=== PATIENT | male | born 1935 | race Caucasian/White ===

== ENCOUNTER 2016-12-01 08:30 | Day surgery (SDC) | payer MEDICARE, OTHER ==
[2016-12-01] VITALS (7 sets, daily range): BP systolic 105–173; BP diastolic 49–76; PULSE 69–72; RESP 15–20; Ht 177.8 cm; Wt 95.0 kg
[~2016-12-01] VITALS: Ht 177.8 cm; Wt 95.0 kg
[~2016-12-01 08:30] MED LIST: ACET325T33 PO; APIX2.5T PO; ATOR40TA68 PO; BACTDS PO; BUME2TAB PO; CEPH-443 PO; HYDR-762 PO; HYDR-906 PO; LOSA50TA6 PO; METO50TA16 PO
[2016-12-01] MEDS ORDERED: ASPI-664 PO (10:52)
[2016-12-01] MEDS ORDERED: LIDOCAINE 1%/EPI (MDV) 20 ML INJ ONE (11:58)
[2016-12-01] MEDS ORDERED: FENTAnyl 50 MCG/ML VIAL ONE (12:14)
[2016-12-01] MEDS ORDERED: CEFAZOLIN 2 GM/50 ML (PMX) 50 ML IVPB ONE ×2 (12:14→13:15)
[2016-12-01] MEDS ORDERED: PROPOFOL 20 ML ONE (12:15)
[2016-12-01] MEDS ORDERED: MIDAZOLAM 1 MG/ML 2 ML INJ ONE (12:15)
[2016-12-01 12:17] LABS: ADD SCAN DIFF NO
[2016-12-01 12:20] LABS: BASOPHIL # 0.1 10^3/ul (0.0-0.1); BASOPHILS % 0.6 % (0.0-2.0); EOSINOPHILS # 0.1 10^3/ul (0.0-0.5); EOSINOPHILS % 1.6 % (0.0-7.0); HEMATOCRIT 43.8 % (42.0-52.0); LYMPHOCYTES # 1.3 10^3/ul (0.8-2.9); LYMPHOCYTES % 16.5 % (15.0-51.0); MEAN CORPUSCULAR HEMOGLOBIN 29.2 pg (29.0-33.0); MEAN CORPUSCULAR VOLUME 91.4 fl (82.0-101.0); MEAN PLATELET VOLUME 10.7 fl (7.4-10.4); MONOCYTE # 0.5 10^3/ul (0.3-0.9); MONOCYTES % 6.8 % (0.0-11.0); NEUTROPHIL # 5.9 10^3/ul (1.6-7.5); NEUTROPHILS % 74.2 % (39.0-77.0); PLATELET COUNT 208 10^3/UL (140-415); RED BLOOD COUNT 4.79 10^6/ul (4.70-6.10); RED CELL DISTRIBUTION WIDTH 14.8 % (11.5-14.5); WHITE BLOOD COUNT 7.9 10^3/ul (4.8-10.8)
[2016-12-01 12:25] LABS: ALBUMIN 4.3 g/dl (3.3-4.9)
[2016-12-01 12:28] LABS: ALBUMIN/GLOBULIN RATIO 1.1; BILIRUBIN,INDIRECT 0.5 mg/dl (0-1.1); BILIRUBIN,TOTAL 0.5 mg/dl (0.2-1.3); TOTAL PROTEIN 8.2 g/dl (6.1-8.1)
[2016-12-01 12:29] LABS: CHOL/HDL RATIO 3.2 RATIO
[2016-12-01] MEDS ORDERED: LIDOCAINE 1%/EPI 30 ML INJ ONE (12:33)
[2016-12-01 12:34] LABS: CALCIUM 9.6 mg/dl (8.4-10.2); CREATININE 1.84 mg/dl (0.61-1.24); POTASSIUM 4.9 mmol/L (3.5-5.1)
[2016-12-01 12:40] LABS: TROPONIN-I 0.055 ng/ml (0.00-0.12)
[2016-12-01 12:46] LABS: CK-MB 2.9 ng/ml (0.0-2.4)
[2016-12-01 12:54] LABS: INR 1.08; PARTIAL THROMBOPLASTIN TIME 32.4 Sec (25.0-35.0); PT RATIO 1.1
[2016-12-01] MEDS ORDERED: SOD CHLORIDE 0.9% 500 ML ONE (13:15)
[2016-12-01] MEDS ORDERED: ACETAMINOPHEN 325 MG TAB PO PRN (14:00)
[2016-12-01] MEDS ORDERED: morphine 2 MG INJ IV PRN ×2 (14:00)
--- NOTE | 2016-12-01 14:09 | SP ---
DATE OF PROCEDURE: 12/01/2016 NAME OF PROCEDURE: 1. Biventricular ICD generator change. 2. Defibrillator threshold testing. TYPESETTER PERFORATOR OPERATOR: Sharonda Fountain MD CLINICAL INDICATIONS: A 81-year-old gentleman with history of severe ischemic cardiomyopathy, pacer dependent, who has a biventricular ICD. Biventricular ICD was end of life and the patient was tristan mmended to undergo ICD generator change and DFT testing. DESCRIPTION OF PROCEDURE: Written informed consent was obtained. The risks and benefits were discu ssed with the patient in detail. this included infection, vascular complication, bleeding complicat ion, stroke, arrhythmia, , renal failure, etc., anesthesia complications were discussed with th e patient. The patient was brought to the distillery laborer and placed in supine position under anesthesia b y anesthesiologist. Left chest area prepped and draped in sterile fashion. Left chest area over th e previous device was anesthetized with 1% lidocaine with epinephrine. A 4 cm incision was noted ov er the previous scar. ____ device was found. It was removed from the pocket. The pocket was irrig ated with antibiotic solution. Then, the leads were disconnected. First, the leads were connected to the ____backup pacing as the patient was pacer dependent. Then, the leads were disconnected and connected to the new device. The LV lead was placed also in the new device. The device was checked . The lead was checked through the device. The pocket was irrigated with antibiotic solution again . The device was placed into the pocket and closed with 1 layer of 2-0 and 2 layers of 3-0 Vicryl. DFT testing was done using ULV testing. The patient was shocked at 20 joules, ____ and no VT was induced, consistent with a threshold below the level. The pocket was closed and pressors were appli ed. Pressure dressings were applied. Patient ____ no complications. COMPLICATIONS: None. INFORMATION OF THE DEVICE: The explanted device is a Medtronic device. The new device is a [place] e unified [employer] TRACK INSPECTING SUPERVISOR-D device. Atrial lead is an old Medtronic lead. RV lead is a Medtronic Sprint Quattro lead. LV lead is a Medtronic Attain Ability lead. RV threshold was 0.75 and 0.5 millisec ond pulse width, and impedance 400. LV lead threshold was 0.625 at 0.5 milliseconds with impedance of 390. A lead could not capture. High voltage impedance 66. CONCLUSION: Successful biventricular ICD generator change and DFT testing. Dictated By: SHARONDA NAVAS/GUS Conf#: [id number] DID#: [id number]
--- NOTE | 2016-12-01 14:47 | HP ---
DATE OF ADMISSION: 12/01/2016 CHIEF COMPLAINT: ICD placement. HISTORY OF PRESENT ILLNESS: This is a 80-year-old male with a past medical history of coronary ruiz ry disease, history of peripheral vascular disease, status post right BKA, history of arrhythmia, st atus post pacemaker placement, history of throat cancer, status post tracheostomy and open ostium, h istory of coronary artery disease, status post bypass surgery 10 years ago, who presents to [facility] to undergo elective ICD placement. The patient's primary analytical tech is Dr. Ervin ramirez, who scheduled him to come in for ICD placement given his cardiomyopathy. The patient current ly states that he is at his baseline. Denies any active hemoptysis, hemetemesis, hematochezia. No fevers, chills, nausea, vomiting. PAST MEDICAL HISTORY: As stated above, history of coronary artery disease, history of peripheral va scular disease, status post right BKA, history of permanent pacemaker placement, history of throat c ancer. PAST SURGICAL HISTORY: Status post pacemaker placement, status post laryngectomy for throat cancer with residual open ostium, status post bypass surgery. ALLERGIES: NO KNOWN DRUG ALLERGIES. HOME MEDICATIONS: Have been reviewed and reconciled. FAMILY HISTORY: No family history of kidney or heart disease. SOCIAL HISTORY: Lives at home. REVIEW OF SYSTEMS: A 14-point review of systems was conducted. Pertinent positives stated in the H PI, otherwise negative. PHYSICAL EXAMINATION: VITAL SIGNS: Blood pressure is 130/72, pulse 78, respirations 18, saturation 98% on room air. GENERAL: The patient is in no acute distress. HEENT: Head is normocephalic. Pupils are reactive to light. NECK: Supple. Noted ostium. HEART: Regular rate. LUNGS: Show diminished breath sounds at the bases, otherwise clear. ABDOMEN: Soft, nontender to palpation. No rebound or guarding. EXTREMITIES: Negative for clubbing, cyanosis, edema on the left leg. Positive right BKA noted. NEUROLOGIC: No obvious focal deficits. DERMATOLOGIC: No rashes. MUSCULOSKELETAL: No joint effusions. LABORATORY DATA: Shows sodium 141, potassium 4.5, chloride 101, BUN 24, creatinine 1.84. Troponin 0.55. White count 7.9, hemoglobin 14.0, hematocrit 43.8, platelet count 208. ASSESSMENT AND PLAN: This is a 81-year-old male who presents with: 1. Ischemic cardiomyopathy. The patient is pending bilateral ICD generator change. Plan is to adm it the patient overnight for observation after procedure. We will continue the patient's current me dical management. We will follow up with analytical tech, Dr. Fountain, for further recommendations. 2. Coronary artery disease. Continue current medical management. 3. History of chronic kidney disease with a previous baseline creatinine of 1.5 to 2.0 mg/dL. The patient's renal function currently appears to be at baseline. We will continue current treatment p rosaura, supportive care, renally dose all meds. 4. Peripheral vascular disease, status post left below-knee amputation. Continue current medical m anagement. 5. Hypertension. Continue current blood pressure regimen. 6. Dyslipidemia. Continue statin therapy. 7. History of throat cancer, status post tracheostomy with residual open ostium. 8. History of arrhythmia, status post pacemaker placement. 9. Gastrointestinal and deep venous thrombosis prophylaxis. We will place the patient on proton pu mp inhibitor, continue sequential leg squeezers. Please note I spent 25 minutes in [id number]-rh-lcpt time with the patient, discussing code status. The p atient is a FULL CODE. Dictated By: RICHARD SMITH/GUS Conf#: [id number] DID#: [id number]
[2016-12-01] MEDS: CEFAZOLIN 1 GM/50 ML (PMX) 50 ML IVPB SCH ×2 (16:17→22:04)
[2016-12-01] MEDS: METOPROLOL (XL) 50 MG TAB PO SCH (16:18)
--- NOTE | 2016-12-01 16:43 | RADRPT ---
PROCEDURE: XR Chest. CLINICAL INDICATION: Shortness of breath. Pacemaker placement. TECHNIQUE: Single frontal view. COMPARISON: 11/15/2012. FINDINGS: There is a left-sided biventricular pacemaker. There are sternal wires and mediastinal clips. The heart is enlarged. Calcification is present in the aorta consistent with atherosclerosis. There is mild atelectasis at the lung bases. The lungs are otherwise clear. There is no pleural effusion. There is no pneumothorax. IMPRESSION: 1. Biventricular pacemaker. 2. Previous cardiac surgery. 3. Cardiomegaly and atherosclerosis. 4. Mild atelectasis at the lung bases. RPTAT: QQ .Huan Pelletier MD, MD Date Time Electronically viewed and signed by .Huan Pelletier MD, MD on 12/01/2016 16:43 .R/
[2016-12-01] MEDS ORDERED: ATORVASTATIN 40 MG TAB PO SCH (21:00)
[2016-12-02] VITALS: BP 147/72; RESP 20
[2016-12-02 00:12] VITALS: PULSE 69
[2016-12-02 04:00] VITALS: BP 138/73; RESP 18
[2016-12-02 04:15] VITALS: PULSE 69
[2016-12-02] MEDS: CEFAZOLIN 1 GM/50 ML (PMX) 50 ML IVPB SCH (06:23)
[2016-12-02 07:39] LABS: ADD SCAN DIFF NO
[2016-12-02 07:44] LABS: BASOPHIL # 0.1 10^3/ul (0.0-0.1); BASOPHILS % 0.7 % (0.0-2.0); EOSINOPHILS # 0.2 10^3/ul (0.0-0.5); EOSINOPHILS % 2.1 % (0.0-7.0); HEMATOCRIT 44.1 % (42.0-52.0); LYMPHOCYTES # 1.4 10^3/ul (0.8-2.9); LYMPHOCYTES % 17.9 % (15.0-51.0); MEAN CORPUSCULAR HEMOGLOBIN 29.3 pg (29.0-33.0); MEAN CORPUSCULAR HGB CONC 31.7 g/dl (32.0-37.0); MEAN CORPUSCULAR VOLUME 92.3 fl (82.0-101.0); MEAN PLATELET VOLUME 10.7 fl (7.4-10.4); MONOCYTE # 0.6 10^3/ul (0.3-0.9); MONOCYTES % 8.2 % (0.0-11.0); NEUTROPHIL # 5.4 10^3/ul (1.6-7.5); NEUTROPHILS % 70.8 % (39.0-77.0); PLATELET COUNT 193 10^3/UL (140-415); RED BLOOD COUNT 4.78 10^6/ul (4.70-6.10); RED CELL DISTRIBUTION WIDTH 15.1 % (11.5-14.5); WHITE BLOOD COUNT 7.6 10^3/ul (4.8-10.8)
[2016-12-02 08:04] VITALS: BP 144/60; RESP 19
[2016-12-02 08:04] LABS: POTASSIUM 5.2 mmol/L (3.5-5.1)
[2016-12-02 08:06] LABS: CREATININE 1.63 mg/dl (0.61-1.24)
[2016-12-02 08:07] LABS: CALCIUM 9.1 mg/dl (8.4-10.2); MAGNESIUM 2.3 mg/dl (1.7-2.5); PHOSPHORUS 3.3 mg/dl (2.5-4.9)
[2016-12-02 08:33] VITALS: PULSE 71
[2016-12-02] MEDS: METOPROLOL (XL) 50 MG TAB PO SCH (08:57)
[2016-12-02] MEDS ORDERED: LOSARTAN 50 MG TAB PO SCH (09:00)
[2016-12-02] MEDS ORDERED: BUMETANIDE 1 MG TAB PO SCH (09:00)
[2016-12-02] MEDS ORDERED: ASPIRIN (EC) 81 MG TAB PO SCH (09:00)
--- NOTE | 2016-12-02 10:25 | DS ---
DATE OF ADMISSION: 12/01/2016 DATE OF DISCHARGE: HOSPITAL COURSE: This is a 80-year-old male with a past medical history of coronary artery disease, history of peripheral vascular disease status post right BKA, history of arrhythmia, pacemaker plac ement, history of throat cancer status post tracheostomy with open ostium, history of bypass 10 year s ago who presents to [facility] to undergo elective ICD placement. The patient w as seen by his schedule manager, Dr. Fountain and had successful exchange of ICD for his underlying cardio myopathy. The patient was subsequently admitted to telemetry. Overnight, the patient has been stab le, no acute events overnight. No fevers, chills. No nausea, vomiting. The patient's other chroni c medical problems including coronary artery disease, kidney peripheral vascular disease, hypertensi on, dyslipidemia, and arrhythmia have all been stable. Patient at this point will be discharged patience e, where he will follow up with his primary care physician and will follow up with myself, Dr. Saba arenas, in 1 week's time for that renal evaluation. At the time of discharge, the patient is stable, in no acute distress. FINAL DIAGNOSES: 1. Ischemic cardiomyopathy status post ICD exchange. 2. Coronary artery disease. 3. Chronic kidney disease, stage IV, with a baseline creatinine 1.52 mg/dL. 4. Peripheral vascular disease status post left below knee amputation. 5. Hypertension. 6. Dyslipidemia. 7. History of throat cancer with residual ostium. 8. History of arrhythmias, status post pacemaker. 9. Mild hyperkalemia. Will monitor. The patient was stressed to have renal diet. At the time of discharge, the patient is stable, in no acute distress. Please note I spent over 40 minutes of time preparing the patient's discharge. Dictated By: RICHARD SMITH/NTS Conf#: [id number] DID#: [id number]
--- NOTE | 2016-12-03 08:33 | PN ---
DATE: CARDIOLOGY FOLLOWUP SUBJECTIVE: Discussed with the staff. The patient remains in ventricular paced rhythm, minimal abhijit st wall tenderness at the site of incision. Denies shortness of breath, denies palpitations to me. MEDICATIONS: Reviewed. PHYSICAL EXAMINATION: VITAL SIGNS: Temperature 98.2, heart rate of 70, blood pressure 130/70, respiration rate of 18. HEENT: Normocephalic, atraumatic. Pupils are equal. NECK: Supple. Previous tracheostomy. CARDIOVASCULAR: Regular rate and rhythm. PULMONARY: Mild rhonchi. GASTROINTESTINAL: Soft, nontender. EXTREMITIES: Status post lower extremity amputation. NEUROLOGIC: Awake and alert. CHEST: Status post pacemaker with no hematoma, no bleeding. LABORATORY: Reviewed. Chest x-ray reviewed. Cardiomegaly with no evidence of fluid overload. Status post biventricular I CD. ASSESSMENT AND PLAN: 1. Congestive heart failure, status post biventricular implantable cardioverter-defibrillator gener ator change. 2. Chronic kidney disease. 3. Coronary artery disease. 4. Peripheral vascular disease. RECOMMENDATIONS: We will continue with the current cardiac care. Okay to discharge home. We will follow as an outpatient. Dictated By: SHARONDA BRICENO MD AV/GUS Conf#: [id number] DID#: [id number] CC: RICHARD CASTLE DO;*EndCC*
== END 2016-12-02 09:50 | disposition home or self-care (01) ==
LOC: SDS 08:30 → MS4 13:46 → SDS 15:57
PROVIDERS: ATTEND Internal Medicine Interventional Cardiology
DX: Z45.02 Encounter for adjustment and management of automatic implantable cardiac defibrillator (principal); I50.9 Heart failure, unspecified; J44.9 Chronic obstructive pulmonary disease, unspecified; I73.9 Peripheral vascular disease, unspecified; I42.9 Cardiomyopathy, unspecified; Z95.1 Presence of aortocoronary bypass graft; I48.91 Unspecified atrial fibrillation; Z85.89 Personal history of malignant neoplasm of other organs and systems; E78.5 Hyperlipidemia, unspecified
CPT/HCPCS: 33264; 71010; 80048; 80053; 80061; 82550; 82553; 83735; 84100; 84484; 85025; 85610; 85730; C1882; J0690; J2250; J3010; J7040

== ENCOUNTER 2017-12-12 18:31 | Emergency (ER) | END 2017-12-12 20:02 | disposition home or self-care (01) ==

== ENCOUNTER 2018-08-08 02:03 | Inpatient (IN) | END 2018-08-16 19:44 | DRG 871 ==

== ENCOUNTER 2018-10-03 22:38 | Inpatient (IN) | payer MEDICARE, OTHER ==
[~2018-10-03] VITALS: Ht 165.1 cm; Wt 76.0 kg
[~2018-10-03 22:38] MED LIST changes: -ACET325T33 PO; -APIX2.5T PO; +ASPI81TA52 PO; -BACTDS PO; -CEPH-443 PO; +HYDR-4011 PO; -HYDR-762 PO; -HYDR-906 PO; +IBUP-1561 PO; +LOSA50TA14 PO; -LOSA50TA6 PO; +METO-319 PO; -METO50TA16 PO
[2018-10-03] MEDS ORDERED: NITROGLYCERIN 2% 1 GM OINT PKT TD STA (22:41)
[2018-10-03] MEDS ORDERED: FUROSEMIDE 100 MG INJ IV STA (22:41)
[2018-10-04] VITALS (17 sets, daily range): BP systolic 111–162; BP diastolic 49–94; PULSE 70–75; RESP 15–35; Ht 165.1 cm; Wt 76.0 kg
--- NOTE | 2018-10-04 01:15 | ERD ---
ER Documentation Chief Complaint Chief Complaint SOB HPI This is an 83-year-old male brought in by rescue with complaints of severe s hortness of breath that was sudden onset. No nausea no vomiting fevers no chills. Denies chest pain. Denies any other current complaints. Patient is a relatively poor historian. ROS All systems reviewed and are negative except as per history of present illness. Medications Home Meds Active Scripts Ibuprofen* (Motrin*) 400 Mg Tab, 400 MG PO Q8, #30 TAB Prov:SAFIA LUGO MD 12/12/17 Hydrocodone/Acetaminophen ([place] 5-325 Tablet) 1 Each Tablet, 1 TAB PO Q6H PRN for PAIN, #20 TAB Prov:SAFIA LUGO MD 12/12/17 Reported Medications Aspirin (Low Dose Aspirin) 81 Mg Tablet.dr, 81 MG PO DAILY, #30 TAB 12/01/16 Metoprolol Succinate* (Toprol XL*) 50 Mg Tab.er.24h, 50 MG PO DAILY, TAB 05/13/15 Losartan Potassium* (Losartan Potassium*) 50 Mg Tablet, 50 MG PO DAILY, TAB 05/13/15 Atorvastatin* (Atorvastatin*) 40 Mg Tablet, 40 MG PO HS, TAB 05/13/15 Bumetanide* (Bumex*) 2 Mg Tab, 2 MG PO OD 11/15/12 Allergies Allergies: Coded Allergies: No Known Drug Allergy (Verified Allergy, Mild, 12/01/16) PMhx/Soc History of Surgery: Yes (RT AKA) Anesthesia Reaction: No Hx Neurological Disorder: No Hx Respiratory Disorders: No Hx Psychiatric Problems: No Hx Miscellaneous Medical Probl: No Hx Alcohol Use: No Hx Substance Use: No Hx Tobacco Use: No Smoking Status: Never smoker Physical Exam Vitals Vital Signs Date Temp Pulse Resp B/P (MAP) Pulse Ox O2 O2 Flow FiO2 Time Delivery Rate 10/04/18 70 98 50 00:39 10/03/18 71 100 50 23:01 10/03/18 Non 10.0 22:48 Rebreather 10/03/18 96.5 70 20 183/69 98 22:44 (107) Physical Exam Const: No acute distress Head: Atraumatic Eyes: Normal Conjunctiva ENT: Normal External Ears, Nose and Mouth. Neck: Full range of motion. No meningismus. Resp: Scattered rales bilaterally Cardio: Regular rate and rhythm, no murmurs Abd: Soft, non tender, non distended. Normal bowel sounds Skin: No petechiae or rashes Back: No midline or flank tenderness Ext: No cyanosis, or edema Neur: Awake and alert Psych: Normal Mood and Affect Result Diagram: 10/03/18 2349 10/03/18 2349 Results 24 hrs Laboratory Tests Test 10/03/18 22:41 10/03/18 23:49 10/03/18 23:57 Blood Gas Specimen Source Blood arterial Arterial Blood Date Drawn 10/04/2018 1:00:36 AM Arterial Blood pH 7.375 (Temp corrected) Arterial Blood pCO2 34.6 mmhg (Temp correct) Arterial Blood pO2 97.8 mmHG (Temp corrected) Arterial Blood HCO3 19.8 mmol/L Arterial Blood Base Excess -4.7 mmol/L Arterial Blood 96.7 mmHG Oxygen Saturation Varun Test ACCEPTAB Arterial Blood Gas Right Radial Puncture Site Arterial 0.3 % Blood Carboxyhemoglobin Arterial Blood Methemoglobin 0.1 % Blood Gas A-a O2 Differential 219.8 mmHg Oxyhemoglobin Percent 96.3 % Blood Gas Temperature 37.0 C Blood Gas Modality MASK - BIPAP FiO2 50.0 % Blood Gas Inspiratory Time 18 Blood Gas Pressure Support 10 Blood Gas IPAP/EPAP Ratio 15 Blood Gas Amplitude 29 Blood Gas Notified Whom UP Blood Gas Notified Time 10/04/2018 1:10:28 AM White Blood Count 17.8 10^3/ul Red Blood Count 3.89 10^6/ul Hemoglobin 10.6 g/dl Hematocrit 34.7 % Mean Corpuscular Volume 89.2 fl Mean Corpuscular Hemoglobin 27.2 pg Mean Corpuscular 30.5 g/dl Hemoglobin Concent Red Cell Distribution Width 18.3 % Platelet Count 399 10^3/UL Mean Platelet Volume 9.8 fl Immature Granulocytes % 0.600 % Neutrophils % 88.5 % Lymphocytes % 4.2 % Monocytes % 6.1 % Eosinophils % 0.1 % Basophils % 0.5 % Nucleated Red Blood Cells % 0.0 /100WBC Immature Granulocytes # 0.100 10^3/ul Neutrophils # 15.7 10^3/ul Lymphocytes # 0.7 10^3/ul Monocytes # 1.1 10^3/ul Eosinophils # 0.0 10^3/ul Basophils # 0.1 10^3/ul Nucleated Red Blood Cells # 0.0 10^3/ul Prothrombin Time 15.1 Sec Prothrombin Time Ratio 1.2 INR International 1.18 Normalized Ratio Activated 30.6 Sec Partial Thromboplast Time Sodium Level 141 mmol/L Potassium Level 6.1 mmol/L Chloride Level 110 mmol/L Carbon Dioxide Level 21 mmol/L Anion Gap 10 Blood Urea Nitrogen 49 mg/dl Creatinine 1.86 mg/dl Est Glomerular Filtrat mL/min Rate mL/min Glucose Level 138 mg/dl Calcium Level 9.6 mg/dl Total Bilirubin 0.4 mg/dl Direct Bilirubin 0.00 mg/dl Indirect Bilirubin 0.4 mg/dl Aspartate Amino 43 IU/L Transf (AST/SGOT) Alanine 49 IU/L Aminotransferase (ALT/SGPT) Alkaline Phosphatase 89 IU/L Troponin I 0.078 ng/ml B-Type Natriuretic Peptide 75561 PG/ML Total Protein 8.4 g/dl Albumin 4.1 g/dl Globulin 4.30 g/dl Albumin/Globulin Ratio 0.95 POC Venous Lactate 2.0 mmol/L Current Medications Medications Dose Sig/Paresh Start Time Status Last (Trade) Ordered Route PRN Stop Time Admin Dose Reason Admin 1 inch ONCE STAT 10/03/18 DC 10/04/18 Nitroglycerin TD 22:41 10/03/18 00:18 22:43 (Nitroglyceri n 2% Oint) Furosemide 80 mg ONCE STAT 10/03/18 DC 10/04/18 (Lasix) IV 22:41 10/03/18 00:17 22:43 Procedures/MDM Emergency department course: Patient seen and evaluated ER MD in ambulance bay. Immediately placed on BiPAP. Intravenous access. Given Lasix and started on nitroglycerin. Critical Care: Time: 45 minutes, independent of any separately billable procedural time Treatments/Evaluations: Close monitoring and treatment of unstable vital signs, cardiorespiratory, and neurologic status, while maintaining tight balance of fluid, respiratory, and cardiac interventions. Chest X-ray 1V Interpreted by me: Soft Tissue: No acute abnormalities Bones: No acute abnormalities Mediastinum/Cardiac Silhouette/Lungs: [No acute abnormalities] EKG: Rate/Rhythm: [Normal Sinus Rhythm] QRS, ST, T-waves: [No changes consistent w/ acute ischemia] Impression: [No evidence of ischemia or arrhythmia] Medical decision making: Patient's heart failure symptoms is concerning for acute decompensation and will require inpatient workup and monitoring. Further w/u for ischemia, arrhythmia, PE or dissection will be deferred to the inpatient team. Repeat chemistry is currently pending, given Lasix for hyperkalemia Accepting Care Team: Current data and ongoing care discussed. Time: 1 AM Primary Provider: Dr. Wells, who is on-call for the group Consulting: Deferred to inpatient team Outstanding Data: none Departure Diagnosis: Primary Impression: Pulmonary edema Chronicity: acute Qualified Codes: J81.0 - Acute pulmonary edema Additional Impressions: Shortness of breath Respiratory failure Chronicity: acute Respiratory failure complication: unspecified whether with hypoxia or hypercapnia Qualified Codes: J96.00 - Acute respiratory failure, unspecified whether with hypoxia or hypercapnia Hyperkalemia Condition: Critical LIDA CUELLAR Oct 04, 2018 01:15
[2018-10-04] MEDS ORDERED: LORAZEPAM 2 MG INJ ONE (04:31)
[2018-10-04] MEDS ORDERED: LORAZEPAM 2 MG INJ IV ONE (05:00)
[2018-10-04] MEDS ORDERED: ALBUTEROL/IPRATROPIUM (NEB) 3 ML AMP HHN PRN (08:00)
[2018-10-04] MEDS ORDERED: NA POLYST SULFON 15 GM/60 ML BTL ONE (08:29)
[2018-10-04] MEDS ORDERED: SODIUM POLYSTYRENE 15 GM KIT (POWDER + SORBITOL) PO SCH (08:30)
--- NOTE | 2018-10-04 08:31 | HP ---
DATE OF ADMISSION: 10/03/2018 CHIEF COMPLAINT: Respiratory failure, shortness of breath. HISTORY OF PRESENT ILLNESS: This is an 83-year-old male with a past medical history of coronary ruiz ry disease, history of peripheral vascular disease status post right below-knee amputation, history o f arrhythmia, status post pacemaker, history of throat cancer, status post tracheostomy with open ost ium, history of coronary artery disease, history bypass, history of ICD placement, who presents to [facility] with shortness of breath. The patient was recently admitted to [facility], had a prolonged course with respiratory failure, shortness of breath. The patien t was eventually transferred to [place] and then to a assisted facility. Per patient, he was d ischarged from a assisted facility and while at home, he was starting to have progressive shor tness of breath over the last several days. As a result, he came in to the emergency room for evalua tion. On arrival, the patient had a chest x-ray, which showed findings of congestive heart failure, with pulmonary edema. The patient's laboratory data also showed potassium of 6.1. The patient had a white count of 17,000. In the emergency room, the patient was given diuretic therapy and nitroglyce rin and Ativan. The patient was placed on BiPAP. Upon my evaluation of the patient at this time, he is currently tachypneic, short of breath. The pat ient is able to answer simple questions. He denies any hemoptysis, hematemesis, or hematochezia. Th e patient states his urinary output has been adequate. PAST MEDICAL HISTORY: As stated above, history of coronary artery disease, arrhythmia, peripheral va scular disease, questionable history of throat cancer. PAST SURGICAL HISTORY: Status post pacemaker placement, status post ICD placement, status post laryn gectomy with residual open ostium, status post coronary artery bypass graft, status post right above knee amputation. ALLERGIES: NO KNOWN DRUG ALLERGIES. MEDICATIONS: Reviewed and reconciled. FAMILY HISTORY: No family history of kidney disease. SOCIAL HISTORY: Lives at home. REVIEW OF SYSTEMS: A 14-point review of systems was conducted. Pertinent positives stated in HPI, o therwise negative. PHYSICAL EXAMINATION: VITAL SIGNS: Blood pressure is 139/58, respirations 23, pulse 70, temperature 98.6. HEENT: Head is normocephalic. Pupils are reactive to light. NECK: Supple. HEART: Tachycardic. LUNGS: Show diminished breath sounds at the base. Positive crackles. ABDOMEN: Soft, nontender to palpation. No rebound or guarding. EXTREMITIES: Negative for clubbing, cyanosis. Positive edema in the left leg. Right below-knee amp utation is noted. NEUROLOGIC: No focal deficits. DERMATOLOGIC: No rashes. MUSCULOSKELETAL: No joint effusions. MEDICATIONS: Reviewed. LABORATORY DATA: Shows a white count 14.8, hemoglobin 10.6, platelet count is 399. Sodium 141, pota ssium 6.1, BUN 48, creatinine 1.86. BNP 34,000. ASSESSMENT AND PLAN: 1. Acute hypoxemic respiratory failure, etiology is secondary to congestive heart failure exacerbati on, chronic obstructive pulmonary disease, possible pneumonia. Chest x-ray shows evidence of pulmona ry edema. The patient does have elevated white count of 17,000. Plan at this point is to continue t he patient on BiPAP. Consider high flow oxygen. We will check an ABG. We will continue nebulizers. We will start the patient on current antibiotics, continue diuretic therapy. We will place a pulmo nary consult for evaluation and monitor closely. 2. Systemic inflammatory response syndrome, possible sepsis. Etiology may be secondary to tracheal bronchitis, possible pneumonia. The patient has markedly elevated white count. Plan is to check blo od cultures, urine cultures, sputum cultures. We will check procalcitonin level, lactic acid level. We will start the patient on antibiotic therapy and place an ID consult for evaluation. 3. Acute systolic heart failure. The patient is compensated on exam. Continue diuretic therapy, mo nitor electrolytes and renal function closely. 4. Nonoliguric acute kidney injury on top of chronic kidney disease with previous baseline creatinin e of 1.5 to 1.8 mg/dL. Etiology of acute kidney injury is likely secondary to hemodynamics. Renal f unction is near baseline. At this point, check a UA with microanalysis, check urine electrolytes. M onitor closely on diuretic therapy. 5. Hyperkalemia. Etiology may be secondary to ARB effect, acute kidney injury, dietary indiscretion . Plan is to repeat a renal panel. Potassium levels remain elevated. We will consider a course of Kayexalate, calcium gluconate, insulin and dextrose. The patient is status post Lasix. We will anam tor potassium levels closely. 6. Anemia. Continue to monitor hemoglobin and hematocrit levels. 7. Mineral bone disorder, monitor calcium and phosphorus levels. 8. History of coronary artery disease, status post coronary artery bypass graft. Continue medical m anagement. 9. History of arrhythmia, status post ICD and pacemaker. Continue to monitor. Follow up with cardi ology. 10. Peripheral vascular disease with right below-knee amputation. Continue to monitor. 11. Hypertension. Continue current blood pressure regimen. 12. Dyslipidemia. Continue statin therapy. 13. Reported history of throat cancer, status post tracheostomy with residual open ostium. 14. Gastrointestinal and deep vein thrombosis prophylaxis. Please note I spent an additional 30 minutes of [id number]-hg-[id number] time discussing code status and advance directives. The patient is FULL CODE. Dictated By: RICHARD CASTLE DO NR/NTS Conf#: [id number] DID#: [id number] CC: LIDA CUELLAR MD;*EndCC*
--- NOTE | 2018-10-04 08:50 | NUR ---
Admit from ER with admitting diagnosis of CHF Exacerbation, NAD at this time, will continue to monitor.
[2018-10-04] MEDS ORDERED: CEFEPIME 1GM/50 ML (PMX) 50 ML IVPB ONE (09:00)
[2018-10-04] MEDS: ASPIRIN (EC) 81 MG TAB PO SCH (09:56)
[2018-10-04] MEDS: METOPROLOL (XL) 50 MG TAB PO SCH (09:56)
--- NOTE | 2018-10-04 10:28 | CONS ---
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 diuresis as tolerated. Patient be difficult to do given his renal failure Continue respiratory care oxygen supplement. BiPAP as needed eliquis Monitor I's and O's. cont toprol Thank. you for his referral we will continue to monitor with you. SHARONDA BRICENO MD [facility] Consultation Date/Type/Reason Admit Date/Time Oct 04, 2018 at 01:12 Date of Consultation: Oct 04, 2018 Type of Consult Cardiology Reason for Consultation chf Requesting Provider: RICHARD CASTLE DO Date/Time of Note DATE: 10/04/18 TIME: 10:27 Hx of Present Illness Interventional cardiology consultation note Chief complaint: sob Reason for consult: CHF History of present illness: Thank you for this referral. Thank you for his referral. He was then from the patient is a poor historian from discussion with the staff and physician. Patient also is very well-known to me from office visit as well as previous admission to the hospital This is a 83-year-old gentleman multiple complicated medical history including severe ischemic cardiomyopathy, COPD with previous respiratory failure who was brought into the emergency room because of increasing respiratory failure and shortness of breath. Patient apparently was just discharged from the nursing h ome a couple of days ago he was home for a couple of days yesterday he was taking his medication but came in because they were swelling up and was having increasing shortness of breath. No chest pain or pressure PAST MEDICAL HISTORY: As stated above, history of coronary artery disease, status post TX status post coronary bypass graft, history of heart block pacer dependent status with bi V ICD, history of peripheral vascular disease, history of throat cancer, status post tracheostomy. History of chronic kidney disease baseline creatinine about 1.8. History of hypertension dyslipidemia. History of underlying atrial fibrillation has been refusing to take anticoagulation. PAST SURGICAL HISTORY: Status post by V/ICD placement, status post laryngectomy for throat cancer with residual open ostium, status post coronary artery bypass graft. ALLERGIES: NO KNOWN DRUG ALLERGIES. MEDICATIONS: The patient's medications have been reviewed FAMILY HISTORY: No family history of kidney disease or heart disease. SOCIAL HISTORY: Lives at home. Has a home health which has been checking on him and been reporting to me. Patient has quit smoking Review of system: Patient denies all others except for above-mentioned Past Medical History Home Meds Active Scripts Ibuprofen* (Motrin*) 400 Mg Tab, 400 MG PO Q8, #30 TAB Prov:SAFIA LUGO MD 12/12/17 Hydrocodone/Acetaminophen ([place] 5-325 Tablet) 1 Each Tablet, 1 TAB PO Q6H PRN for PAIN, #20 TAB Prov:SAFIA LUGO MD 12/12/17 Reported Medications Aspirin (Low Dose Aspirin) 81 Mg Tablet.dr, 81 MG PO DAILY, #30 TAB 12/01/16 Metoprolol Succinate* (Toprol XL*) 50 Mg Tab.er.24h, 50 MG PO DAILY, TAB 05/13/15 Losartan Potassium* (Losartan Potassium*) 50 Mg Tablet, 50 MG PO DAILY, TAB 05/13/15 Atorvastatin* (Atorvastatin*) 40 Mg Tablet, 40 MG PO HS, TAB 05/13/15 Bumetanide* (Bumex*) 2 Mg Tab, 2 MG PO OD 11/15/12 Medications Current Medications Aspirin (Halfprin) 81 mg DAILY PO Last administered on 10/04/18at 09:56; Admin Dose 81 MG; Start 10/04/18 at 09:00 Atorvastatin Calcium (Lipitor) 40 mg HS PO ; Start 10/04/18 at 21:00 Metoprolol Succinate (Toprol Xl) 50 mg DAILY PO Last administered on 10/04/18at 09:56; Admin Dose 50 MG; Start 10/04/18 at 09:00 Albuterol/ Ipratropium (Duoneb) 3 ml Q4H RESP THERAPY PRN HHN sob; Start 10/04/18 at 08:00 Allergies: Coded Allergies: No Known Drug Allergy (Verified Allergy, Mild, 10/04/18) Social History Smoking Status: Never smoker Exam/Review of Systems Vital Signs Vitals Vital Signs Date Temp Pulse Resp B/P (MAP) Pulse Ox O2 O2 Flow FiO2 Time Delivery Rate 10/04/18 70 09:00 10/04/18 98 35 08:45 10/04/18 19 158/55 Nasal 08:30 (89) Cannula 2/4/19 10.0 22:48 10/03/18 96.5 22:44 Exam Exam General: disheveled looking gentleman. in no acute distress HEENT: NC/AT. pupils are equal. round. NECK: Status post previous trach. no stridor. CV: RRR. systolic murmur; no gallop or rubs. PULM:+ rhonchi. GI: SOFT, NT, ND, no rebound or guarding Extremity: + LE edema. Status post right BKA neuro: awake and alert. Oriented to person and place Psych: Calm now rectal: deferred : normal CXR Congestive heart failure with pulmonary edema. Labs Result Diagram: 10/04/18 0845 10/04/18 0845 Results 24hrs Laboratory Tests Test 10/03/18 22:41 10/03/18 23:49 10/03/18 23:57 10/04/18 03:12 Blood Gas Specimen Blood arterial Source Arterial Blood 10/04/2018 1:00:36 Date Drawn AM Arterial Blood pH 7.375 (Temp corrected) Arterial Blood 34.6 L pCO2 (Temp correct) Arterial Blood pO2 97.8 H (Temp corrected) Arterial Blood 19.8 L HCO3 Arterial Blood -4.7 L Base Excess Arterial Blood 96.7 Oxygen Saturation Varun Test ACCEPTAB Arterial Blood Gas Right Radial Puncture Site Arterial 0.3 Blood Carboxyhemog lobin Arterial Blood 0.1 Methemoglobin Blood Gas A-a O2 219.8 H Differential Oxyhemoglobin 96.3 Percent Blood Gas 37.0 Temperature Blood Gas Modality MASK - BIPAP FiO2 50.0 Blood Gas 18 Inspiratory Time Blood Gas Pressure 10 Support Blood Gas 15/5 IPAP/EPAP Ratio Blood Gas 29 Amplitude Blood Gas Notified UP Whom Blood Gas Notified 10/04/2018 1:10:28 Time AM White Blood Count 17.8 #H Red Blood Count 3.89 L Hemoglobin 10.6 L Hematocrit 34.7 L Mean Corpuscular 89.2 Volume Mean Corpuscular 27.2 L Hemoglobin Mean Corpuscular 30.5 L Hemoglobin Concent Red Cell 18.3 H Distribution Width Platelet Count 399 # Mean Platelet 9.8 Volume Immature 0.600 H Granulocytes % Neutrophils % 88.5 H Lymphocytes % 4.2 L Monocytes % 6.1 Eosinophils % 0.1 Basophils % 0.5 Nucleated Red 0.0 Blood Cells % Immature 0.100 H Granulocytes # Neutrophils # 15.7 H Lymphocytes # 0.7 L Monocytes # 1.1 H Eosinophils # 0.0 Basophils # 0.1 Nucleated Red 0.0 Blood Cells # Prothrombin Time 15.1 H Prothrombin Time 1.2 Ratio INR International 1.18 Normalized Ratio Activated 30.[address] Time Sodium Level 141 Potassium Level 6.1 *H Chloride Level 110 Carbon Dioxide 21 Level Anion Gap 10 Blood Urea 49 H Nitrogen Creatinine 1.86 H Est Glomerular Filtrat Rate mL/min Glucose Level 138 Calcium Level 9.6 Total Bilirubin 0.4 Direct Bilirubin 0.00 Indirect Bilirubin 0.4 Aspartate Amino 43 Transf (AST/SGOT) Alanine 49 Aminotransferase ( ALT/SGPT) Alkaline 89 Phosphatase Troponin I 0.078 B-Type Natriuretic 60918 H Peptide Total Protein 8.4 H Albumin 4.1 Globulin 4.30 H Albumin/Globulin 0.95 Ratio POC Venous Lactate 2.0 1.6 Test 10/04/18 05:20 10/04/18 08:45 Lactic Acid Level 1.1 White Blood Count 14.8 H Red Blood Count 3.58 L Hemoglobin 9.9 L Hematocrit 31.7 L Mean Corpuscular 88.5 Volume Mean Corpuscular 27.7 L Hemoglobin Mean Corpuscular 31.2 L Hemoglobin Concent Red Cell 18.2 H Distribution Width Platelet Count 337 Mean Platelet 9.7 Volume Immature 0.300 Granulocytes % Neutrophils % 84.9 H Lymphocytes % 8.3 L Monocytes % 6.1 Eosinophils % 0.0 Basophils % 0.4 Nucleated Red 0.0 Blood Cells % Immature 0.050 H Granulocytes # Neutrophils # 12.6 H Lymphocytes # 1.2 Monocytes # 0.9 Eosinophils # 0.0 Basophils # 0.1 Nucleated Red 0.0 Blood Cells # Sodium Level 141 Potassium Level 5.2 H Chloride Level 108 Carbon Dioxide 24 Level Anion Gap 9 Blood Urea 52 H Nitrogen Creatinine 1.87 H Est Glomerular Filtrat Rate mL/min Glucose Level 112 Calcium Level 9.4 Total Bilirubin 0.5 Direct Bilirubin 0.00 Indirect Bilirubin 0.5 Aspartate Amino 37 Transf (AST/SGOT) Alanine 39 Aminotransferase ( ALT/SGPT) Alkaline 79 Phosphatase Total Protein 7.6 Albumin 3.7 Globulin 3.90 H Albumin/Globulin 0.94 Ratio Medications Medications Current Medications Aspirin (Halfprin) 81 mg DAILY PO Last administered on 10/04/18at 09:56; Admin Dose 81 MG; Start 10/04/18 at 09:00 Atorvastatin Calcium (Lipitor) 40 mg HS PO ; Start 10/04/18 at 21:00 Metoprolol Succinate (Toprol Xl) 50 mg DAILY PO Last administered on 10/04/18at 09:56; Admin Dose 50 MG; Start 10/04/18 at 09:00 Albuterol/ Ipratropium (Duoneb) 3 ml Q4H RESP THERAPY PRN HHN sob; Start 10/04/18 at 08:00 SHARONDA BRICENO MD Oct 04, 2018 10:28
--- NOTE | 2018-10-04 11:30 | NUR ---
Patient has been uncooperative since arrival in the Unit, removing Tele. monitor, removing oxygen, keeps yelling and tries to get out OFF bed.
[2018-10-04] MEDS ORDERED: CEFEPIME 1GM/50 ML (PMX) 50 ML IVPB SCH (12:00)
--- NOTE | 2018-10-04 12:20 | CONS ---
DATE OF ADMISSION: 10/04/2018 DATE OF CONSULTATION: 10/04/2018 REASON FOR CONSULTATION: Respiratory distress. Thank you, Dr. Shirley, for this consultation. HISTORY OF PRESENT ILLNESS: This is an 83-year-old gentleman with multiple medical problems includin g previous vent-dependent respiratory failure, history of laryngeal carcinoma, cardiac arrhythmia wit h pacemaker, coronary artery disease, coronary artery bypass graft surgery, ICD placement, transferre d from longterm facility yesterday for increasing shortness of breath, orthopnea, PND, several days of worsening dyspnea. On admission found to have pulmonary edema with elevated WBC. Potassium initially placed on noninvasive positive pressure ventilation. Now appears more comfortable. No he moptysis, hematemesis or hematochezia. PAST MEDICAL HISTORY: As above. MEDICATIONS: Per chart. ALLERGIES: None. SOCIAL HISTORY: Ex-smoker, no alcohol, no history of drug use. FAMILY HISTORY: Noncontributory. SYSTEMS REVIEW: A 12-point review of systems was negative other than that mentioned above. PHYSICAL EXAMINATION: GENERAL: Elderly-appearing gentleman, appears comfortable at rest, no acute distress. VITAL SIGNS: Currently afebrile, pulse is 70, blood pressure 150/55, O2 saturation 96%, FIO2 of 35%. NECK: Supple. CARDIAC: S1, S2, no added sounds or murmurs. CHEST: Diminished air entry bilaterally. ABDOMEN: Soft, nontender. No guarding or rebound. EXTREMITIES: No cyanosis, clubbing, edema. NEUROLOGIC: Generalized weakness. LABORATORIES: White count 14.8, hemoglobin 9.9, platelets of 337. BUN 52, creatinine 1.87. INR 1.1 8. ABG: PaO2 was 97 on bilevel ventilation. DIAGNOSTIC DATA: Chest x-ray was reviewed, showed congestive cardiac failure with pulmonary edema. IMPRESSION AND PLAN: 1. Acute on chronic hypoxemic respiratory failure secondary to volume overload and pulmonary edema. 2. Renal insufficiency. 3. History of laryngeal carcinoma with status post tracheostomy. 4. leukocytosis, possibly healthcare-associated pneumonia. The patient will require: 1. Continued broad spectrum antibiotics. 2. Supplemental O2. 3. Gentle diuresis. 4. Aspiration precautions. 5. Deep vein thrombosis and gastrointestinal prophylaxis. Dictated By: GIACOMO CRANDALL/GUS Conf#: [id number] DID#: [id number] CC: RICHARD SHIRLEY DO;*EndCC*
--- NOTE | 2018-10-04 12:24 | CONS ---
DATE OF ADMISSION: 10/04/2018 DATE OF CONSULTATION: 10/04/2018 TYPE OF CONSULTATION: Infectious disease. REASON FOR CONSULTATION: Antibiotic management. HISTORY OF PRESENT ILLNESS: Michael Rooney is an 83-year-old male who was brought in by rescue with compla ints of severe shortness of breath of sudden onset. He denied chest pain. The patient is a poor his cam. Past problems include right AKA. PAST MEDICAL HISTORY: Positive for hypertension and hyperlipidemia. FAMILY HISTORY: Noncontributory. SOCIAL HISTORY: Does not smoke, drink or abuse drugs. ALLERGIES: NONE TO PENICILLIN, SULFA OR FOODS. MEDICATIONS: Per chart. REVIEW OF SYSTEMS: Noncontributory. PHYSICAL EXAMINATION: GENERAL: The patient is in no acute distress. VITAL SIGNS: Stable. He is afebrile. SKIN: Without generalized rash. HEENT: Within normal limits. NECK: Supple. LYMPH NODES: None palpable. CHEST: Decreased breath sounds at the bases with scattered rales bilaterally. HEART: Without murmur or gallop. ABDOMEN: Soft, nontender without organosplenomegaly or masses. EXTREMITIES: Without cyanosis, clubbing or edema. RECTAL AND GENITAL: Deferred. NEUROLOGIC: No focal neurological abnormality. ANCILLARY LABORATORY DATA: His white count is 17.8, H and H of 10.6 and 34.7, platelet count 399,000 . BUN and creatinine 49/1.86, potassium was up to 6.1, random glucose 138. As noted, his white coun t was 17.8 and 89% neutrophils. DIAGNOSTIC DATA: Chest x-ray showed congestive heart failure with pulmonary edema. HOSPITAL COURSE: The patient was transferred to the intensive care unit. He was seen by Dr. Castle who noted acute hypoxic respiratory failure secondary to congestive heart failure, COPD possible pne [facility]. The patient has a white count of 17,000. He is on BiPAP at the present time. Continue diur etics. Continue antibiotics. Reported history of throat cancer, status post tracheostomy with resid ual . The patient has a history of hypertension, dyslipidemia as noted, history of arrhythmia, status post ICD and pacemaker. He also as noted has right below the knee amputation. The patient wa s seen by Dr. Fountain in cardiac consultation. He put him on aspirin, atorvastatin, metoprolol and al buterol and ipratropium. We will continue him for the time being on his medication. He received cef epime once. It seems that most of his problem is congestive heart failure, although his white count is elevated. I think we will continue the cefepime. I will dictate my findings to the hospitalist shamika Castle. Dictated By: ROBERTO DRISCOLL MD, JD/GUS Conf#: [id number] DID#: [id number] CC: RICHARD CASTLE DO;*EndCC*
--- NOTE | 2018-10-04 12:30 | NUR ---
Put Patient on bedside chair, will continue to monitor.
--- NOTE | 2018-10-04 15:00 | NUR ---
Pt. still in chair, refused to be transferred to bed and remains to be uncooperative/ non-compliant with care, keeps removing Oxygen and yelling.
--- NOTE | 2018-10-04 18:34 | NUR ---
EOSS: No acute change noted but remains to be uncooperative/ non-compliant w/ care, keeps taking OFF oxygen, yelling all the time, will continue to monitor & endorse to PM shift.
[2018-10-04] MEDS: ATORVASTATIN 40 MG TAB PO SCH (20:15)
[2018-10-04] MEDS ORDERED: QUETIAPINE 25 MG TAB PO SCH (21:00)
[2018-10-05] VITALS (12 sets, daily range): BP systolic 118–136; BP diastolic 58–68; PULSE 68–108; RESP 18–22
--- NOTE | 2018-10-05 00:05 | NUR ---
Pt. was received from the ICU at 2200, sleeping, easily arousable, took Seroquel for his 2100 medications in the ICU; Dx of pulmonary edema w/ cc of SOB,Hx of AICD, CAD,PVD,CHF,HPN, CABG, R AKA, Trach still w/ stoma, throat CA, former smoker. pt. is anxious, impulsive, w/ 1:1 sitter, V Paced/SR v/s normal, on [place] O2.
--- NOTE | 2018-10-05 05:06 | NUR ---
EOS; Pt. slept good ,easily arousable - after Seroquel last night; verbalizes needs, asked for orange juice; no distress noted, no pain verbalized, vpaced/SR, normal V/S.
[2018-10-05] MEDS: METOPROLOL (XL) 50 MG TAB PO SCH (08:22)
[2018-10-05] MEDS: FAMOTIDINE 20 MG TAB PO SCH (08:22)
[2018-10-05] MEDS: ASPIRIN (EC) 81 MG TAB PO SCH (08:22)
[2018-10-05] MEDS: CEFEPIME 1GM/50 ML (PMX) 50 ML IVPB SCH (08:23)
[2018-10-05] MEDS: FUROSEMIDE 40 MG INJ IV SCH (08:40)
--- NOTE | 2018-10-05 08:54 | PN ---
DATE: 10/05/2018 SUBJECTIVE: The patient is stable, no events overnight. No hemoptysis, hematemesis or hematochezia. The patient remains on high flow oxygen and is stable. OBJECTIVE: VITAL SIGNS: Blood pressure is 129/63, respirations 19, pulse 70, temperature 98.1. HEENT: Head is normocephalic. NECK: Supple. HEART: Regular rate. LUNGS: Show diminished breath sounds at the base. ABDOMEN: Soft, nontender to palpation without rebound or guarding. EXTREMITIES: On the left, positive for edema. Right below-knee amputation is noted. NEUROLOGIC: No change in exam. MUSCULOSKELETAL: No joint effusions. MEDICATIONS: Reviewed. LABORATORY DATA: Shows sodium 1401, potassium 3.9, BUN 53, creatinine 1.68. White count 9.5, hemogl obin 8.8, platelet count is 276. ASSESSMENT AND PLAN: 1. Acute hypoxemic respiratory failure secondary to congestive heart failure exacerbation, chronic o bstructive pulmonary disease, possible pneumonia. The patient is currently stable on high flow oxyge n. Continue current treatment plan. Continue diuretic therapy, antibiotics, continue high flow oxyg en, nebulizers. Follow up with pulmonary. 2. Sepsis secondary to tracheobronchitis. The patient is clinically improving. Continue current an tibiotic regimen. Cultures have been reviewed. Follow up with infectious disease. 3. Acute systolic heart failure. The patient is currently decompensated on exam. Continue current diuretic therapy. 4. Nonoliguric acute kidney injury on top of chronic kidney disease, with previous baseline creatini ne of 1.5 to 1.8 mg/dL. Etiology of acute kidney injury is secondary to hemodynamics. Renal functio n is near baseline. Continue current treatment plan, supportive care, renally dose all medicines. 5. Hyperkalemia, resolved. Etiology is likely secondary to ARB effect, acute kidney injury, dietary indiscretion. At this point, we will continue to monitor. Continue the patient on renal diet. 6. Anemia. Monitor hemoglobin and hematocrit levels. 7. Mineral bone disorder. Monitor calcium and phosphorus levels. 8. Coronary artery disease, status post coronary artery bypass graft. Continue medical management. 9. History of arrhythmia, status post ICD, pacemaker placement. Continue to monitor. 10. History of peripheral vascular disease status post right below-knee amputation. 11. Hypertension. Continue current blood pressure regimen. 12. Dyslipidemia. Continue statin therapy. 13. History of throat cancer, status post tracheostomy with residual open ostium. 14. Gastrointestinal and deep vein thrombosis prophylaxis. DISPOSITION: Anticipate placing a Hough evaluation for the patient. Dictated By: RICHARD CASTLE DO NR/GUS Conf#: [id number] DID#: [id number] CC: RICHARD CASTLE DO;*EndCC*
[2018-10-05] MEDS ORDERED: ENOXAPARIN 30 MG/0.3 ML SYG SC SCH (09:00)
--- NOTE | 2018-10-05 09:30 | CONS ---
Consult Date/Type/Reason Admit Date/Time Oct 04, 2018 at 01:12 Initial Consult Date 10/04/18 Requesting Provider: RICHARD SHIRLEY DO Date/Time of Note DATE: 10/05/18 TIME: 09:26 Subjective Cardiology follow-up progress note Subjective: Case discussed with staff. Telemetry was reviewed. Patient remains in ventricular paced rhythm. Discussed with Dr. Shirley Patient complains of less shortness of breath and cough but appears to be severely hypoxemic and is still on high flow oxygen 35% Objective: General: disheveled looking gentleman. in no acute distress HEENT: NC/AT. pupils are equal. round. NECK: Status post previous trach. no stridor. CV: RRR. systolic murmur; no gallop or rubs. PULM:+ rhonchi. GI: SOFT, NT, ND, no rebound or guarding Extremity: + LE edema. Status post right BKA neuro: awake and alert. Oriented to person and place Psych: Calm now rectal: deferred : normal CXR Congestive heart failure with pulmonary edema. Chest x-ray 10/05/2018 shows: Interstitial infiltrate/edema are moderately improved. Mild improvement in bibasilar alveolar infiltrates. Minimal bilateral pleural effusions are unchanged. Objective Vitals Vital Signs Date Temp Pulse Resp B/P (MAP) Pulse Ox O2 O2 Flow FiO2 Time Delivery Rate 10/05/18 73 08:00 10/05/18 98.1 19 129/63 91 High Flow 07:28 (85) 10/05/18 35 04:11 10/03/18 10.0 22:48 Intake and Output 10/04/18 10/04/18 10/05/18 1414:59 22:59 06:59 IntakeIntake Total 550 ml 430 ml OutputOutput Total 200 ml 200 ml BalanceBalance 550 ml 230 ml -200 ml Results/Medications Result Diagram: 10/05/18 0620 10/05/18 0518 Results 24 hrs Laboratory Tests Test 10/04/18 16:10 10/05/18 05:18 10/05/18 06:20 10/05/18 06:22 Urine Color YELLOW Urine Clarity CLEAR Urine pH 5.0 Urine Specific [place] 1.014 Urine Ketones NEGATIVE Urine Nitrite NEGATIVE Urine Bilirubin NEGATIVE Urine Urobilinogen NEGATIVE Urine Leukocyte Esterase NEGATIVE Urine Hemoglobin NEGATIVE Urine Random Creatinine 74.54 Urine Random Sodium 51 Urine Glucose NEGATIVE Urine Total Protein 21.0 H Sodium Level 141 Potassium Level 3.9 Chloride Level 110 Carbon Dioxide Level 26 Anion Gap 5 Blood Urea Nitrogen 52 H Creatinine 1.68 H Est Glomerular Filtrat Rate mL/min Glucose Level 104 Calcium Level 8.6 Phosphorus Level 3.9 Magnesium Level 2.1 White Blood Count 9.5 # Red Blood Count 3.17 L Hemoglobin 8.8 L Hematocrit 27.7 L Mean Corpuscular Volume 87.4 Mean Corpuscular 27.8 L Hemoglobin Mean Corpuscular 31.8 L Hemoglobin Concent Red Cell Distribution 18.1 H Width Platelet Count 276 Mean Platelet Volume 9.8 Immature Granulocytes % 0.400 Neutrophils % 80.1 H Lymphocytes % 9.3 L Monocytes % 8.3 Eosinophils % 1.4 Basophils % 0.5 Nucleated Red Blood 0.0 Cells % Immature Granulocytes # 0.040 H Neutrophils # 7.6 H Lymphocytes # 0.9 Monocytes # 0.8 Eosinophils # 0.1 Basophils # 0.1 Nucleated Red Blood 0.0 Cells # B-Type Natriuretic 29544 H Peptide Home Meds Active Scripts Ibuprofen* (Motrin*) 400 Mg Tab, 400 MG PO Q8, #30 TAB Prov:SAFIA LUGO MD 12/12/17 Hydrocodone/Acetaminophen ([place] 5-325 Tablet) 1 Each Tablet, 1 TAB PO Q6H PRN for PAIN, #20 TAB Prov:SAFIA LUGO MD 12/12/17 Reported Medications Aspirin (Low Dose Aspirin) 81 Mg Tablet.dr, 81 MG PO DAILY, #30 TAB 12/01/16 Metoprolol Succinate* (Toprol XL*) 50 Mg Tab.er.24h, 50 MG PO DAILY, TAB 05/13/15 Losartan Potassium* (Losartan Potassium*) 50 Mg Tablet, 50 MG PO DAILY, TAB 05/13/15 Atorvastatin* (Atorvastatin*) 40 Mg Tablet, 40 MG PO HS, TAB 05/13/15 Bumetanide* (Bumex*) 2 Mg Tab, 2 MG PO OD 11/15/12 Medications Current Medications Aspirin (Halfprin) 81 mg DAILY PO Last administered on 10/05/18at 08:22; Admin Dose 81 MG; Start 10/04/18 at 09:00 Atorvastatin Calcium (Lipitor) 40 mg HS PO Last administered on 10/04/18 20:15; Admin Dose 40 MG; Start 10/04/18 at 21:00 Metoprolol Succinate (Toprol Xl) 50 mg DAILY PO Last administered on 10/05/18 08:22; Admin Dose 50 MG; Start 10/04/18 at 09:00 Albuterol/ Ipratropium (Duoneb) 3 ml Q4H RESP THERAPY PRN HHN sob; Start 10/04/18 at 08:00 Cefepime HCl 50 ml @ 100 mls/hr Q24H IVPB Last administered on 10/05/18 08:23; Admin Dose 100 MLS/HR; Start 10/05/18 at 09:00 Quetiapine Fumarate (Seroquel) 12.5 mg HS PO Last administered on 10/04/18 20:15; Admin Dose 12.5 MG; Start 10/04/18 at 21:00 Furosemide (Lasix) 40 mg DAILY@0600 IV Last administered on 10/05/18 08:40; Admin Dose 40 MG; Start 10/05/18 at 08:00 Enoxaparin Sodium (Lovenox) 30 mg DAILY SC Last administered on 10/05/18 08:27; Admin Dose 30 MG; Start 10/05/18 at 09:00 Famotidine (Pepcid) 20 mg DAILY PO Last administered on 10/05/18 08:22; Admin Dose 20 MG; Start 10/05/18 at 09:00 Assessment/Plan Hospital Course (Demo Recall) Acute hypoxic hypercapnic respiratory failure Congestive heart failure acute on chronic 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 diuresis as tolerated. I will give the patient a dose of Bumex drip for now and monitor his renal function Continue respiratory care oxygen supplement. BiPAP /high flow as needed will start on eliquis to replace ASA Not on TAYLOR inhibitor due to his renal failure Monitor I's and O's. cont toprol Thank. you for his referral we will continue to monitor with you. SHARONDA BRICENO MD [facility] SHARONDA BRICENO MD Oct 05, 2018 09:30
[2018-10-05] MEDS: APIXABAN 5 MG TABLET PO SCH ×2 (10:08→20:18)
[2018-10-05] MEDS ORDERED: BUMETANIDE 3 MG in DEXTROSE 5% 18 ML IV ONE (11:00)
[2018-10-05] MEDS: DOCUSATE SODIUM 100 MG CAP PO SCH ×2 (14:51→20:19)
[2018-10-05] MEDS: POLYETHYLENE GLYCOL 17 GM PACKET PO SCH (14:52)
[2018-10-05] MEDS: QUETIAPINE 25 MG TAB PO SCH ×2 (14:52→20:17)
[2018-10-05] MEDS: MUPIROCIN 2% 22 GM OINT TOP SCH ×2 (14:52→20:17)
--- NOTE | 2018-10-05 15:09 | CONS ---
Assessment/Plan Assessment/Plan Hospital Course (Demo Recall) Patient is awake sitting up in a chair looks comfortable he is afebrile. WBC 9.5 H&H 8.8 and 27.7 platelets 276 neutrophils 80.1 BUN 52 creatinine 1.68 Microbiology: Blood cultures negative nares swab positive MRSA Chest x-ray revealed interstitial infiltrates/edema moderately improved. Mild improvement in bibasilar alveolar infiltrates Antimicrobials: Cefepime Physical examination: This is a fragile well-developed elderly man who is awake in no distress. Head atraumatic normocephalic neck is supple patient has a dressing over his trachea chest rise symmetrical breath sounds with bilateral scattered rhonchi. Heart: S1-S2. Abdomen soft bowel sounds present. Extremities with left lower extremity edema and erythema, patient is right below-knee amputation Assessment: 1. Acute hypoxemic respiratory failure secondary to fluid overload COPD exacerbation, possible pneumonia 2. Left lower extremity cellulitis 3. MRSA nares consolidation 4. History of peripheral vascular disease status post right BKA 5. Acute on chronic kidney disease 6. Dementia 7. 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 Plan: Patient is stable, we will add doxycycline and topical Bactroban to the regimen Consultation Date/Type/Reason Admit Date/Time Oct 04, 2018 at 01:12 Initial Consult Date 10/04/18 Type of Consult id Requesting Provider: RICHARD CASTLE DO Date/Time of Note DATE: 10/05/18 TIME: 15:09 Exam/Review of Systems Exam Vitals Vital Signs Date Temp Pulse Resp B/P (MAP) Pulse Ox O2 O2 Flow FiO2 Time Delivery Rate 10/05/18 98 35 13:35 10/05/18 70 12:22 10/05/18 98.3 18 136/63 11:56 (87) 10/05/18 High Flow 07:28 10/03/18 10.0 22:48 Intake and Output 10/04/18 10/04/18 10/05/18 1515:00 23:00 07:00 IntakeIntake Total 550 ml 430 ml OutputOutput Total 200 ml 200 ml BalanceBalance 550 ml 230 ml -200 ml Results Result Diagram: 10/05/18 0620 10/05/18 0518 Results 24hrs Laboratory Tests Test 10/04/18 16:10 10/05/18 05:18 10/05/18 06:20 10/05/18 06:22 Urine Color YELLOW Urine Clarity CLEAR Urine pH 5.0 Urine Specific [place] 1.014 Urine Ketones NEGATIVE Urine Nitrite NEGATIVE Urine Bilirubin NEGATIVE Urine Urobilinogen NEGATIVE Urine Leukocyte Esterase NEGATIVE Urine Hemoglobin NEGATIVE Urine Random Creatinine 74.54 Urine Random Sodium 51 Urine Glucose NEGATIVE Urine Total Protein 21.0 H Sodium Level 141 Potassium Level 3.9 Chloride Level 110 Carbon Dioxide Level 26 Anion Gap 5 Blood Urea Nitrogen 52 H Creatinine 1.68 H Est Glomerular Filtrat Rate mL/min Glucose Level 104 Calcium Level 8.6 Phosphorus Level 3.9 Magnesium Level 2.1 White Blood Count 9.5 # Red Blood Count 3.17 L Hemoglobin 8.8 L Hematocrit 27.7 L Mean Corpuscular Volume 87.4 Mean Corpuscular 27.8 L Hemoglobin Mean Corpuscular 31.8 L Hemoglobin Concent Red Cell Distribution 18.1 H Width Platelet Count 276 Mean Platelet Volume 9.8 Immature Granulocytes % 0.400 Neutrophils % 80.1 H Lymphocytes % 9.3 L Monocytes % 8.3 Eosinophils % 1.4 Basophils % 0.5 Nucleated Red Blood 0.0 Cells % Immature Granulocytes # 0.040 H Neutrophils # 7.6 H Lymphocytes # 0.9 Monocytes # 0.8 Eosinophils # 0.1 Basophils # 0.1 Nucleated Red Blood 0.0 Cells # B-Type Natriuretic 38115 H Peptide Medications Medication Current Medications Atorvastatin Calcium (Lipitor) 40 mg HS PO Last administered on 10/04/18at 20:15; Admin Dose 40 MG; Start 10/04/18 at 21:00 Metoprolol Succinate (Toprol Xl) 50 mg DAILY PO Last administered on 10/05/18at 08:22; Admin Dose 50 MG; Start 10/04/18 at 09:00 Albuterol/ Ipratropium (Duoneb) 3 ml Q4H RESP THERAPY PRN HHN sob; Start 10/04/18 at 08:00 Cefepime HCl 50 ml @ 100 mls/hr Q24H IVPB Last administered on 10/05/18at 08:23; Admin Dose 100 MLS/HR; Start 10/05/18 at 09:00 Furosemide (Lasix) 40 mg DAILY@0600 IV Last administered on 10/05/18at 08:40; Admin Dose 40 MG; Start 10/05/18 at 08:00 Famotidine (Pepcid) 20 mg DAILY PO Last administered on 10/05/18 08:22; Admin Dose 20 MG; Start 10/05/18 at 09:00 Apixaban (Eliquis) 2.5 mg BID PO Last administered on 10/05/18 10:08; Admin Dose 2.5 MG; Start 10/05/18 at 10:00 Mupirocin (Bactroban) 1 applic BID TOP Last administered on 10/05/18 14:52; Admin Dose 1 APPLIC; Start 10/05/18 at 12:30 Docusate Sodium (Colace) 100 mg BID PO Last administered on 10/05/18 14:51; Admin Dose 100 MG; Start 10/05/18 at 15:00 Polyethylene Glycol (Miralax) 17 gm DAILY PO Last administered on 10/05/18 14:52; Admin Dose 17 GM; Start 10/05/18 at 15:00 Quetiapine Fumarate (Seroquel) 12.5 mg BID PO Last administered on 10/05/18 14:52; Admin Dose 12.5 MG; Start 10/05/18 at 15:00 EFRA BORDEN NP Oct 05, 2018 15:09
[2018-10-05] MEDS: DOXYCYCLINE 100 MG TAB PO SCH (15:37)
--- NOTE | 2018-10-05 18:54 | NUR ---
EOSS: PT HAS BEEN AGITATED FOR MOST OF THE DAY TODAY. PT IS AOX3-4, VS STABLE, V-PACED ON THE MONITOR, DENIES PAIN. PT HAS BEEN THROWING THINGS AT THE SITTER, BECOMING VERY AGITATED. HE SAID HE WAS CONSTIPATED AND HE WANTED MEDICATION FOR IT RIGHT AWAY AND KEPT YELLING AT OPAL POLISHER AND NURSE REGARDING HIS CONSTIPATION. CALLED AND INFORMED MD REGARDING MATTER; RECEIVED ORDERS AND GAVE MEDICATION FOR CONSTIPATION AND AGITATION. CALLED AND LEFT MESSAGE FOR MD FOR PSYCH CONSULT. WAITING ACTION FINISHER BACK. WILL ENDORSE TO OCCUPATIONAL THERAPY SPECIALIST NURSE. PT STILL NEEDS A SITTER BECAUSE HE KEEPS WANTING TO GET OUT OF THE CHAIR. ALL PT'S MEDICATIONS HAVE BEEN GIVEN SCHEDULED.
[2018-10-05] MEDS: ATORVASTATIN 40 MG TAB PO SCH (20:19)
[2018-10-06] VITALS (10 sets, daily range): BP systolic 126–155; BP diastolic 59–67; PULSE 70–72; RESP 18–20
[2018-10-06] MEDS: DOXYCYCLINE 100 MG TAB PO SCH ×3 (01:32→20:44)
--- NOTE | 2018-10-06 04:51 | NUR ---
Pt. very agitated , combative, tried to kick the sitter 3 x, throws coffee at sitter, Seroquel 12.5 mg did not do the job, Pshych services consultation ordered. V/S normal,V.paced.
[2018-10-06] MEDS: FUROSEMIDE 40 MG INJ IV SCH (06:42)
--- NOTE | 2018-10-06 08:28 | CONS ---
Consult Date/Type/Reason Admit Date/Time Oct 04, 2018 at 01:12 Initial Consult Date 10/04/18 Type of Consultation: cv Requesting Provider: RICHARD SHIRLEY DO Date/Time of Note DATE: 10/06/18 TIME: 08:27 Subjective Cardiology follow-up progress note Subjective: Case discussed with staff. Telemetry was reviewed. Patient remains in ventricular paced rhythm. Discussed with Dr. Shirley Patient denies any cp or sob to me but appears to be severely hypoxemic and is still on high flow oxygen 35% Objective: General: disheveled looking gentleman. in no acute distress HEENT: NC/AT. pupils are equal. round. NECK: Status post previous trach. no stridor. CV: RRR. systolic murmur; no gallop or rubs. PULM:+ rhonchi. GI: SOFT, NT, ND, no rebound or guarding Extremity: + LE edema. Status post right AKA neuro: awake and alert. Oriented to person and place Psych: Calm now rectal: deferred : normal CXR Congestive heart failure with pulmonary edema. Chest x-ray 10/05/2018 shows: Interstitial infiltrate/edema are moderately improved. Mild improvement in bibasilar alveolar infiltrates. Minimal bilateral pleural effusions are unchanged. Objective Vitals Vital Signs Date Temp Pulse Resp B/P (MAP) Pulse Ox O2 O2 Flow FiO2 Time Delivery Rate 10/06/18 97.9 70 20 155/67 100 08:00 (96) 10/06/18 35 05:41 10/05/18 High Flow 15:41 10/03/18 10.0 22:48 Intake and Output 10/05/18 10/05/18 10/06/18 1515:00 23:00 07:00 IntakeIntake Total 330 ml 900 ml 480 ml OutputOutput Total 1060 ml 1350 ml BalanceBalance 330 ml -160 ml -870 ml Results/Medications Result Diagram: 10/06/1851810/06/18518 Results 24 hrs Laboratory Tests Test 10/06/18 05:19 White Blood Count 9.1 Red Blood Count 3.49 L Hemoglobin 9.7 L Hematocrit 30.4 L Mean Corpuscular Volume 87.1 Mean Corpuscular Hemoglobin 27.8 L Mean Corpuscular Hemoglobin Concent 31.9 L Red Cell Distribution Width 18.5 H Platelet Count 311 Mean Platelet Volume 10.2 Immature Granulocytes % 0.500 H Neutrophils % 72.9 Lymphocytes % 14.8 L Monocytes % 8.5 Eosinophils % 2.4 Basophils % 0.9 Nucleated Red Blood Cells % 0.0 Immature Granulocytes # 0.050 H Neutrophils # 6.6 Lymphocytes # 1.4 Monocytes # 0.8 Eosinophils # 0.2 Basophils # 0.1 Nucleated Red Blood Cells # 0.0 Sodium Level 142 Potassium Level 4.0 Chloride Level 106 Carbon Dioxide Level 26 Anion Gap 10 # Blood Urea Nitrogen 57 H Creatinine 1.91 H Est Glomerular Filtrat Rate mL/min Glucose Level 92 Calcium Level 9.2 Phosphorus Level 3.9 Magnesium Level 2.0 B-Type Natriuretic Peptide 55801 H Home Meds Active Scripts Ibuprofen* (Motrin*) 400 Mg Tab, 400 MG PO Q8, #30 TAB Prov:ASFIA LUGO MD 12/12/17 Hydrocodone/Acetaminophen ([place] 5-325 Tablet) 1 Each Tablet, 1 TAB PO Q6H PRN for PAIN, #20 TAB Prov:SAFIA LUGO MD 12/12/17 Reported Medications Aspirin (Low Dose Aspirin) 81 Mg Tablet.dr, 81 MG PO DAILY, #30 TAB 12/01/16 Metoprolol Succinate* (Toprol XL*) 50 Mg Tab.er.24h, 50 MG PO DAILY, TAB 05/13/15 Losartan Potassium* (Losartan Potassium*) 50 Mg Tablet, 50 MG PO DAILY, TAB 05/13/15 Atorvastatin* (Atorvastatin*) 40 Mg Tablet, 40 MG PO HS, TAB 05/13/15 Bumetanide* (Bumex*) 2 Mg Tab, 2 MG PO OD 11/15/12 Medications Current Medications Atorvastatin Calcium (Lipitor) 40 mg HS PO Last administered on 10/05/18at 20:19; Admin Dose 40 MG; Start 10/04/18 at 21:00 Metoprolol Succinate (Toprol Xl) 50 mg DAILY PO Last administered on 10/05/18at 08:22; Admin Dose 50 MG; Start 10/04/18 at 09:00 Albuterol/ Ipratropium (Duoneb) 3 ml Q4H RESP THERAPY PRN HHN sob; Start 10/04/18 at 08:00 Cefepime HCl 50 ml @ 100 mls/hr Q24H IVPB Last administered on 10/05/18at 08:23; Admin Dose 100 MLS/HR; Start 10/05/18 at 09:00 Furosemide (Lasix) 40 mg DAILY@0600 IV Last administered on 10/06/18at 06:42; Admin Dose 40 MG; Start 10/05/18 at 08:00 Famotidine (Pepcid) 20 mg DAILY PO Last administered on 10/05/18at 08:22; Admin Dose 20 MG; Start 10/05/18 at 09:00 Apixaban (Eliquis) 2.5 mg BID PO Last administered on 10/05/18at 20:18; Admin Dose 2.5 MG; Start 10/05/18 at 10:00 Mupirocin (Bactroban) 1 applic BID TOP Last administered on 10/05/18at 20:17; Admin Dose 1 APPLIC; Start 10/05/18 at 12:30 Docusate Sodium (Colace) 100 mg BID PO Last administered on 10/05/18at 20:19; Admin Dose 100 MG; Start 10/05/18 at 15:00 Polyethylene Glycol (Miralax) 17 gm DAILY PO Last administered on 10/05/18at 14:52; Admin Dose 17 GM; Start 10/05/18 at 15:00 Doxycycline Hyclate (Vibramycin) 100 mg BID PO Last administered on 10/06/18at 01:32; Admin Dose 100 MG; Start 10/05/18 at 15:30 Quetiapine Fumarate (Seroquel) 25 mg BID PO ; Start 10/06/18 at 09:00 Metolazone (Zaroxolyn) 5 mg ONCE ONCE PO ; Start 10/06/18 at 08:30; Stop 10/06/18 at 08:31 Assessment/Plan Hospital Course (Demo Recall) Acute hypoxic hypercapnic respiratory failure Congestive heart failure acute on chronic 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 diuresis as tolerated. ON LASIX IV and zoroxylin now Continue respiratory care oxygen supplement. BiPAP /high flow as needed cont eliquis Not on TAYLOR inhibitor due to his renal failure Monitor I's and O's. cont silviano Thank. you for his referral we will continue to monitor with you. SHARONDA BRICENO MD [facility] SHARONDA BRICENO MD Oct 06, 2018 08:28
--- NOTE | 2018-10-06 08:28 | PN ---
DATE: 10/06/2018 SUBJECTIVE: The patient remains agitated overnight. This morning, the patient was confused. The pa tient had to be reoriented on multiple occasions. No other acute events noted overnight. OBJECTIVE: VITAL SIGNS: Blood pressure is 126/59, respiratory rate 20, pulse 71, temperature 97.9. HEENT: Head is normocephalic. NECK: Supple. HEART: Regular rate. LUNGS: Show diminished breath sounds at base. ABDOMEN: Soft, nontender to palpation. No rebound or guarding. EXTREMITIES: Negative for clubbing, cyanosis. Positive edema on the left lower extremity. Right be low-knee amputation is noted. DERMATOLOGIC: No rashes. MUSCULOSKELETAL: No joint effusion. NEUROLOGIC: No change in exam. MEDICATIONS: Reviewed. LABORATORY DATA: Shows sodium 142, potassium 4.0, BUN 57, creatinine 1.91. White count 9.1, hemoglo bin 9.7, platelet count is 311. ASSESSMENT AND PLAN: 1. Acute hypoxic respiratory failure secondary to congestive heart failure exacerbation, COPD exacer bation, possible pneumonia. The patient remains on high flow oxygen. Continue current treatment cherrie n. Diuretic therapy, antibiotics, nebulizers. Follow up with pulmonary. 2. Sepsis secondary to tracheobronchitis, possible pneumonia. Continue current antibiotic regimen. Follow up infectious disease. Cultures have been reviewed. 3. Acute systolic heart failure. The patient remains decompensated. Will continue diuretic therapy . Appreciate cardiology's help with management. 4. Nonoliguric acute kidney injury on top of chronic kidney disease. The patient's creatinine is fl uctuating likely due to recent diuretic therapy. Continue current treatment plan, supportive care, r enally dose all medications. 5. Hyperkalemia, resolved. Continue to monitor. 6. Anemia. Monitor hemoglobin and hematocrit levels. 7. Mineral bone disorder, monitor calcium and phosphorus levels. 8. Acute encephalopathy, etiology is toxic metabolic. Questionable underlying organic process; i.e. dementia. Will continue to monitor. Place a psych consult for evaluation. 9. Anxiety mood disorder. Continue Seroquel. 10. Coronary artery disease, status post coronary artery bypass graft. Continue medical management. 11. Arrhythmia. The patient is status post pacemaker ICD placement. Continue to monitor. 12. History of peripheral vascular disease status post right below-knee amputation. Continue to mon itor. 13. Hypertension. Continue current blood pressure regimen. 14. Dyslipidemia, continue statin therapy. 15. History of throat cancer, status post tracheostomy with residual open ostium. 16. Gastrointestinal and deep vein thrombosis prophylaxis. We will place a Hough evaluation and consult for this patient. Dictated By: RICHARD SMITH/GUS Conf#: [id number] DID#: [id number] CC: RICHARD CASTLE DO;*EndCC*
[2018-10-06] MEDS: DOCUSATE SODIUM 100 MG CAP PO SCH ×2 (08:29→20:44)
[2018-10-06] MEDS: APIXABAN 5 MG TABLET PO SCH ×2 (08:29→20:44)
[2018-10-06] MEDS: CEFEPIME 1GM/50 ML (PMX) 50 ML IVPB SCH (08:30)
[2018-10-06] MEDS ORDERED: METOLAZONE 5 MG TAB PO ONE (08:30)
[2018-10-06] MEDS: QUETIAPINE 25 MG TAB PO SCH ×2 (08:30→20:45)
[2018-10-06] MEDS: POLYETHYLENE GLYCOL 17 GM PACKET PO SCH (08:30)
[2018-10-06] MEDS: FAMOTIDINE 20 MG TAB PO SCH (08:30)
[2018-10-06] MEDS: METOPROLOL (XL) 50 MG TAB PO SCH (08:32)
[2018-10-06] MEDS: MUPIROCIN 2% 22 GM OINT TOP SCH ×2 (08:39→20:45)
--- NOTE | 2018-10-06 11:29 | NUR ---
CASE MANAGEMENT NOTE ORDER RECEIVED FOR [facility] CM FORWARDED ALL NEEDED CLINICALS TO [facility] AT [phone], CM WILL FOLLOW UP LATER IN REGARD TO ACCEPTANCE. CM WILL REMAIN AVAILABLE. ADELIA QUIROZ RN,[facility] EXT [phone]
--- NOTE | 2018-10-06 14:21 | CONS ---
Assessment/Plan Assessment/Plan Hospital Course (Demo Recall) No acute changes, looks comfortable, afebrile Microbiology: Blood cultures negative nares swab positive MRSA Chest x-ray revealed interstitial infiltrates/edema moderately improved. Mild improvement in bibasilar alveolar infiltrates Antimicrobials: Cefepime Doxycycline Physical examination: This is a fragile well-developed elderly man who is awake in no distress. Head atraumatic normocephalic neck is supple patient has a dressing over his trachea chest rise symmetrical breath sounds with bilateral scattered rhonchi. Heart: S1-S2. Abdomen soft bowel sounds present. Extremities with left lower extremity edema and erythema, patient is right below-knee amputation Assessment: 1. Acute hypoxemic respiratory failure secondary to fluid overload COPD exacerbation, possible pneumonia 2. Left lower extremity cellulitis 3. MRSA nares consolidation 4. History of peripheral vascular disease status post right BKA 5. Acute on chronic kidney disease 6. Dementia 7. 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 Plan: Remains unchanged, continue abx Consultation Date/Type/Reason Admit Date/Time Oct 04, 2018 at 01:12 Initial Consult Date 10/04/18 Type of Consult id Requesting Provider: RICHARD CASTLE DO Date/Time of Note DATE: 10/06/18 TIME: 14:20 Exam/Review of Systems Exam Vitals Vital Signs Date Temp Pulse Resp B/P (MAP) Pulse Ox O2 O2 Flow FiO2 Time Delivery Rate 10/06/18 71 12:45 10/06/18 98.0 20 130/62 99 12:00 (84) 10/06/18 35 05:41 10/05/18 High Flow 15:41 10/03/18 10.0 22:48 Intake and Output 10/05/18 10/05/18 10/06/18 1515:00 23:00 07:00 IntakeIntake Total 330 ml 900 ml 480 ml OutputOutput Total 1060 ml 1350 ml BalanceBalance 330 ml -160 ml -870 ml Results Result Diagram: 10/06/1819 10/06/1819 Results 24hrs Laboratory Tests Test 10/06/18 05:19 White Blood Count 9.1 Red Blood Count 3.49 L Hemoglobin 9.7 L Hematocrit 30.4 L Mean Corpuscular Volume 87.1 Mean Corpuscular Hemoglobin 27.8 L Mean Corpuscular Hemoglobin Concent 31.9 L Red Cell Distribution Width 18.5 H Platelet Count 311 Mean Platelet Volume 10.2 Immature Granulocytes % 0.500 H Neutrophils % 72.9 Lymphocytes % 14.8 L Monocytes % 8.5 Eosinophils % 2.4 Basophils % 0.9 Nucleated Red Blood Cells % 0.0 Immature Granulocytes # 0.050 H Neutrophils # 6.6 Lymphocytes # 1.4 Monocytes # 0.8 Eosinophils # 0.2 Basophils # 0.1 Nucleated Red Blood Cells # 0.0 Sodium Level 142 Potassium Level 4.0 Chloride Level 106 Carbon Dioxide Level 26 Anion Gap 10 # Blood Urea Nitrogen 57 H Creatinine 1.91 H Est Glomerular Filtrat Rate mL/min Glucose Level 92 Calcium Level 9.2 Phosphorus Level 3.9 Magnesium Level 2.0 B-Type Natriuretic Peptide 39332 H Medications Medication Current Medications Atorvastatin Calcium (Lipitor) 40 mg HS PO Last administered on 10/05/18 20:19; Admin Dose 40 MG; Start 10/04/18 at 21:00 Metoprolol Succinate (Toprol Xl) 50 mg DAILY PO Last administered on 10/06/18 08:32; Admin Dose 50 MG; Start 10/04/18 at 09:00 Albuterol/ Ipratropium (Duoneb) 3 ml Q4H RESP THERAPY PRN HHN sob; Start 10/04/18 at 08:00 Cefepime HCl 50 ml @ 100 mls/hr Q24H IVPB Last administered on 10/06/18 08:30; Admin Dose 100 MLS/HR; Start 10/05/18 at 09:00 Furosemide (Lasix) 40 mg DAILY@0600 IV Last administered on 10/06/18 06:42; Admin Dose 40 MG; Start 10/05/18 at 08:00 Famotidine (Pepcid) 20 mg DAILY PO Last administered on 10/06/18 08:30; Admin Dose 20 MG; Start 10/05/18 at 09:00 Apixaban (Eliquis) 2.5 mg BID PO Last administered on 10/06/18 08:29; Admin Dose 2.5 MG; Start 10/05/18 at 10:00 Mupirocin (Bactroban) 1 applic BID TOP Last administered on 10/06/18 08:39; Admin Dose 1 APPLIC; Start 10/05/18 at 12:30 Docusate Sodium (Colace) 100 mg BID PO Last administered on 10/06/18 08:29; Admin Dose 100 MG; Start 10/05/18 at 15:00 Polyethylene Glycol (Miralax) 17 gm DAILY PO Last administered on 10/06/18 08:30; Admin Dose 17 GM; Start 10/05/18 at 15:00 Doxycycline Hyclate (Vibramycin) 100 mg BID PO Last administered on 10/06/18 08:29; Admin Dose 100 MG; Start 10/05/18 at 15:30 Quetiapine Fumarate (Seroquel) 25 mg BID PO Last administered on 10/06/18 08:30; Admin Dose 25 MG; Start 10/06/18 at 09:00 EFRA BORDEN NP Oct 06, 2018 14:21
--- NOTE | 2018-10-06 17:45 | NUR ---
RN NOTES: PT IS ON HIGH FLOW AND RESPIRATORY THERAPIST DISCOVERED SMALL OPEN WOUND ON BILATERAL EARS D/T HIGH FLOW NASAL CANULA. RESPIRATORY THERAPIST NOTIFIED RN AND PUT ON NON ADHESIVE FOAM BORDER ON BILATERAL EARS. RN WILL PUT IN WOUND CONSULT ORDER.
--- NOTE | 2018-10-06 19:47 | NUR ---
EOSS: NO ACUTE DISTRESS DURING DAY SHIFT. PT IS AOX3-4, ON HIGH FLOW OXYGEN, DENIES PAIN, VS STABLE. PT HAS BEEN SITTING IN THE CHAIR ALL DAY AND DOES NOT WANT TO GO TO BED. PT HAS 1:1 SITTER. PT IS AGITATED AND RESTLESS. ALL MEDICATIONS HAVE BEEN GIVEN. ALL PT'S NEEDS HAVE BEEN MET. ENDORSED TO TRIBAL JUDGE NURSE.
[2018-10-06] MEDS: ATORVASTATIN 40 MG TAB PO SCH (20:44)
--- NOTE | 2018-10-06 21:43 | NUR ---
c/o generalized pain pain scale 8/10, no pain med orders, Dr Shirley called and left message with answering service.Waiting for return call to notify.
[2018-10-06] MEDS ORDERED: HYDROCODONE/APAP (5/325) TAB PO PRN (22:00)
[2018-10-07] VITALS (12 sets, daily range): BP systolic 106–140; BP diastolic 57–70; PULSE 69–93; RESP 17–20
[2018-10-07] MEDS: FUROSEMIDE 40 MG INJ IV SCH ×2 (05:51→17:34)
[2018-10-07] MEDS: ACETAMINOPHEN 500 MG TAB PO PRN ×3 (05:51→20:25)
--- NOTE | 2018-10-07 07:29 | NUR ---
END OF THE SHIFT SUMMARY: PT A/A/O X 3. V-PACING IN GRANITE POLISHER MACHINE. VS MONITORED AND STABLE. PT WEANED FROM HIGH FLOW OXYGEN TO OXYGEN 5LPM/NC WITH O2 SAT MAINTAINED AT 94-98%. NO SHORTNESS OF BREATH NOTED. C/O GENERALIZED PAIN, DR CASTLE NOTIFIED WITH NEW ORDERS. TYLENOL 1000 MG ADMINSITERED ONE TIME AT ABOUT 0600 WITH EFFECTIVE RELIEF OF PAIN.SITTER AT BEDSIDE PATIENT IS VERY IMPULSIVE,AGITATED AT TIMES, JUMPS OUT OF BED AND WANTS TO SIT AT THE BEDSIDE.AM CARE RENDERED. INCONTINENCE CARE RENDERED. LEFT LOWER EXTREMITY SWOLLEN AND REDDENED. LEFT LOWER EXTREMITY SCAB DRY AND CLEAN. TRACHEOSTOMY STOMA CLEANSE WITH NS AND DRESSING CHANGED.WILL ENDORSED TO AM NURSE.
--- NOTE | 2018-10-07 07:38 | NUR ---
DR CASTLE NOTIFIED OF THE RIGHT EJ NOT HOLDING, NEW TEL ORDERS TO DISCONTINUE IT GIVEN. ENDORSED TO AM NURSE.
[2018-10-07] MEDS: CEFEPIME 1GM/50 ML (PMX) 50 ML IVPB SCH (08:50)
[2018-10-07] MEDS: MUPIROCIN 2% 22 GM OINT TOP SCH ×2 (08:50→20:25)
[2018-10-07] MEDS: DOXYCYCLINE 100 MG TAB PO SCH ×2 (08:50→20:24)
[2018-10-07] MEDS: METOPROLOL (XL) 50 MG TAB PO SCH (08:51)
[2018-10-07] MEDS: FAMOTIDINE 20 MG TAB PO SCH (08:51)
[2018-10-07] MEDS: APIXABAN 5 MG TABLET PO SCH ×2 (08:51→20:24)
[2018-10-07] MEDS: QUETIAPINE 25 MG TAB PO SCH ×2 (08:51→20:24)
[2018-10-07] MEDS: DOCUSATE SODIUM 100 MG CAP PO SCH ×2 (08:51→20:24)
[2018-10-07] MEDS: POLYETHYLENE GLYCOL 17 GM PACKET PO SCH (08:51)
--- NOTE | 2018-10-07 10:00 | NUR ---
WOUND CONSULT FOR BILATERAL EARS: 83 year old male admitted from home with pulmonary edema per record. History of CAD s/p bypass, PVD s/p Right BKA, arrhythmia s/p pacemaker and ICD, throat cancer s/p laryngectomy with open ostium per medical history. WBC 8.4. H&H 9.1/28.5. Plt 286. BUN/Cr 55/1.60. BNP 18487. Albumin 3.7. Patient awake, alert, able to follow simple instructions. Right BKA. Patient able to move left leg and turn with moderate assist. Incontinent of bowel and bladder. ASSESSMENT: - Sacrococcyx skin intact. - Left lower extremity multiple dry scabs. Nasal cannula with Earmates foam padding. - Left and Right ears diffuse redness with dry peeling skin. Non-pressure related. I applied moisturizer behind the ears. RECOMMENDATIONS: - Recommended to apply condom cath. - Pericare with barrier cream for each incontinent episode. - Sacrococcyx: Cover with foam border dressing for prophylactic protection. Change every 3 days. Assess skin under dressing every shift. - Left heel and ankles: Cover with Allevyn Heel for protection and apply socks to prevent friction. Change foam dressing every 3 days. Assess skin under dressing every shift. - Continue apply foam dressing to bilateral ears for protection when with any type of oxygen device. - Continue earmates for nasal cannula. - Assess skin behind ears every shift. - Low air loss surface. - Reposition every 2 hours. Discussed assessment and plan of care with Kasie BUSH. RN verbalized understanding. Kristy Gutierrez BSN RN CWOCN
--- NOTE | 2018-10-07 10:56 | NUR ---
NURSE NOTES 1:1 SITTER DISCONTINUED, PT CALM AND ABLE TO FOLLOW COMMAND. PT PLACED NEXT TO NURSING STATION. WILL CONTINUE TO FREQUENTLY ROUND ON PT, WILL CONTINUE TO MONITOR NOTIFIED JOYCEE CORPORATE REAL ESTATE MANAGER
--- NOTE | 2018-10-07 11:07 | CONS ---
Consult Date/Type/Reason Admit Date/Time Oct 04, 2018 at 01:12 Initial Consult Date 10/04/18 Type of Consultation: cv Requesting Provider: RICHARD SHIRLEY DO Date/Time of Note DATE: 10/07/18 TIME: 11:06 Subjective Cardiology follow-up progress note Subjective: Case discussed with staff. Telemetry was reviewed. Patient remains in ventricular paced rhythm. She has had short runs of nonsustained V. tach Discussed with Dr. Shirley Patient denies any cp or sob to me but appears to be severely hypoxemic and is still off high flow oxygen Objective: General: disheveled looking gentleman. in no acute distress HEENT: NC/AT. pupils are equal. round. NECK: Status post previous trach. no stridor. CV: RRR. systolic murmur; no gallop or rubs. PULM:+ rhonchi. GI: SOFT, NT, ND, no rebound or guarding Extremity: + LE edema. Status post right AKA neuro: awake and alert. Oriented to person and place Psych: Calm now rectal: deferred : normal CXR Congestive heart failure with pulmonary edema. Chest x-ray 10/05/2018 shows: Interstitial infiltrate/edema are moderately improved. Mild improvement in bibasilar alveolar infiltrates. Minimal bilateral pleural effusions are unchanged. Objective Vitals Vital Signs Date Temp Pulse Resp B/P (MAP) Pulse Ox O2 O2 Flow FiO2 Time Delivery Rate 10/07/18 93 09:07 10/07/18 Nasal 5.0 08:00 Cannula 10/07/18 98.2 18 130/63 100 07:50 (85) 10/06/18 30 17:00 Intake and Output 10/06/18 10/06/18 10/07/18 1515:00 23:00 07:00 IntakeIntake Total 850 ml 500 ml OutputOutput Total 1200 ml 500 ml BalanceBalance -350 ml 0 ml Results/Medications Result Diagram: 10/07/1851710/07/18517 Results 24 hrs Laboratory Tests Test 10/07/18 05:18 White Blood Count 8.4 Red Blood Count 3.24 L Hemoglobin 9.1 L Hematocrit 28.5 L Mean Corpuscular Volume 88.0 Mean Corpuscular Hemoglobin 28.1 L Mean Corpuscular Hemoglobin Concent 31.9 L Red Cell Distribution Width 18.2 H Platelet Count 286 Mean Platelet Volume 10.0 Immature Granulocytes % 0.400 Neutrophils % 70.0 Lymphocytes % 16.2 Monocytes % 11.6 H Eosinophils % 1.3 Basophils % 0.5 Nucleated Red Blood Cells % 0.0 Immature Granulocytes # 0.030 Neutrophils # 5.9 Lymphocytes # 1.4 Monocytes # 1.0 H Eosinophils # 0.1 Basophils # 0.0 Nucleated Red Blood Cells # 0.0 Sodium Level 139 Potassium Level 3.8 Chloride Level 103 Carbon Dioxide Level 27 Anion Gap 9 Blood Urea Nitrogen 55 H Creatinine 1.60 H Est Glomerular Filtrat Rate mL/min Glucose Level 95 Calcium Level 9.0 Phosphorus Level 4.0 Magnesium Level 1.9 Home Meds Active Scripts Ibuprofen* (Motrin*) 400 Mg Tab, 400 MG PO Q8, #30 TAB Prov:SAFIA LUGO MD 12/12/17 Hydrocodone/Acetaminophen ([place] 5-325 Tablet) 1 Each Tablet, 1 TAB PO Q6H PRN for PAIN, #20 TAB Prov:SAFIA LUGO MD 12/12/17 Reported Medications Aspirin (Low Dose Aspirin) 81 Mg Tablet.dr, 81 MG PO DAILY, #30 TAB 12/01/16 Metoprolol Succinate* (Toprol XL*) 50 Mg Tab.er.24h, 50 MG PO DAILY, TAB 05/13/15 Losartan Potassium* (Losartan Potassium*) 50 Mg Tablet, 50 MG PO DAILY, TAB 05/13/15 Atorvastatin* (Atorvastatin*) 40 Mg Tablet, 40 MG PO HS, TAB 05/13/15 Bumetanide* (Bumex*) 2 Mg Tab, 2 MG PO OD 11/15/12 Medications Current Medications Atorvastatin Calcium (Lipitor) 40 mg HS PO Last administered on 10/06/18at 20:44; Admin Dose 40 MG; Start 10/04/18 at 21:00 Metoprolol Succinate (Toprol Xl) 50 mg DAILY PO Last administered on 10/07/18at 08:51; Admin Dose 50 MG; Start 10/04/18 at 09:00 Albuterol/ Ipratropium (Duoneb) 3 ml Q4H RESP THERAPY PRN HHN sob; Start 10/04/18 at 08:00 Cefepime HCl 50 ml @ 100 mls/hr Q24H IVPB Last administered on 10/07/18 08:50; Admin Dose 100 MLS/HR; Start 10/05/18 at 09:00 Famotidine (Pepcid) 20 mg DAILY PO Last administered on 10/07/18 08:51; Admin Dose 20 MG; Start 10/05/18 at 09:00 Apixaban (Eliquis) 2.5 mg BID PO Last administered on 10/07/18 08:51; Admin Dose 2.5 MG; Start 10/05/18 at 10:00 Mupirocin (Bactroban) 1 applic BID TOP Last administered on 10/07/18 08:50; Admin Dose 1 APPLIC; Start 10/05/18 at 12:30 Docusate Sodium (Colace) 100 mg BID PO Last administered on 10/07/18 08:51; Admin Dose 100 MG; Start 10/05/18 at 15:00 Polyethylene Glycol (Miralax) 17 gm DAILY PO Last administered on 10/07/18 08:51; Admin Dose 17 GM; Start 10/05/18 at 15:00 Doxycycline Hyclate (Vibramycin) 100 mg BID PO Last administered on 10/07/18 08:50; Admin Dose 100 MG; Start 10/05/18 at 15:30 Quetiapine Fumarate (Seroquel) 25 mg BID PO Last administered on 10/07/18 08:51; Admin Dose 25 MG; Start 10/06/18 at 09:00 Acetaminophen (Tylenol Tab) 1,000 mg Q6H PRN PO MILD PAIN(1-3)OR ELEVATED TEMP Last administered on 10/07/18 05:51; Admin Dose 1,000 MG; Start 10/06/18 at 22:00 Metolazone (Zaroxolyn) 5 mg DAILY@0530 PO ; Start 10/07/18 at 17:30 Furosemide (Lasix) 40 mg BID DIURETICS IV ; Start 10/07/18 at 18:00 Assessment/Plan Hospital Course (Demo Recall) Acute hypoxic hypercapnic respiratory failure Congestive heart failure acute on chronic 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 diuresis as tolerated. ON LASIX IV now Continue respiratory care oxygen supplement. BiPAP /high flow as needed cont marcelo Not on TAYLOR inhibitor due to his renal failure. We will resume his ARB once okay from renal standpoint Monitor I's and O's. cont toprol Thank. you for his referral we will continue to monitor with you. SHARONDA BRICENO MD [facility] SHARONDA BRICENO MD Oct 07, 2018 11:07
--- NOTE | 2018-10-07 11:50 | CONS ---
Assessment/Plan Assessment/Plan Hospital Course (Demo Recall) All noted. No acute changes, looks comfortable, afebrile Microbiology: Blood cultures negative nares swab positive MRSA Chest x-ray revealed interstitial infiltrates/edema moderately improved. Mild improvement in bibasilar alveolar infiltrates Antimicrobials: Cefepime Doxycycline Physical examination: This is a fragile well-developed elderly man who is awake in no distress. Head atraumatic normocephalic neck is supple patient has a dressing over his trachea chest rise symmetrical breath sounds with bilateral scattered rhonchi. Heart: S1-S2. Abdomen soft bowel sounds present. Ext remities with left lower extremity edema and erythema, patient is right below- knee amputation Assessment: 1. Acute hypoxemic respiratory failure secondary to fluid overload COPD exacerbation, possible pneumonia 2. Left lower extremity cellulitis 3. MRSA nares consolidation 4. History of peripheral vascular disease status post right BKA 5. Acute on chronic kidney disease 6. Dementia 7. 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 Plan: Stable, continue abx, repeat cxr in am Consultation Date/Type/Reason Admit Date/Time Oct 04, 2018 at 01:12 Initial Consult Date 10/04/18 Type of Consult id Requesting Provider: RICHARD CASTLE DO Date/Time of Note DATE: 10/07/18 TIME: 11:47 Exam/Review of Systems Exam Vitals Vital Signs Date Temp Pulse Resp B/P (MAP) Pulse Ox O2 O2 Flow FiO2 Time Delivery Rate 10/07/18 98.4 70 20 124/57 100 Nasal 11:26 (79) Cannula 10/07/18 5.0 08:00 10/06/18 30 17:00 Intake and Output 10/06/18 10/06/18 10/07/18 1515:00 23:00 07:00 IntakeIntake Total 850 ml 500 ml OutputOutput Total 1200 ml 500 ml BalanceBalance -350 ml 0 ml Results Result Diagram: 10/07/1818 10/07/1818 Results 24hrs Laboratory Tests Test 10/07/18 05:18 White Blood Count 8.4 Red Blood Count 3.24 L Hemoglobin 9.1 L Hematocrit 28.5 L Mean Corpuscular Volume 88.0 Mean Corpuscular Hemoglobin 28.1 L Mean Corpuscular Hemoglobin Concent 31.9 L Red Cell Distribution Width 18.2 H Platelet Count 286 Mean Platelet Volume 10.0 Immature Granulocytes % 0.400 Neutrophils % 70.0 Lymphocytes % 16.2 Monocytes % 11.6 H Eosinophils % 1.3 Basophils % 0.5 Nucleated Red Blood Cells % 0.0 Immature Granulocytes # 0.030 Neutrophils # 5.9 Lymphocytes # 1.4 Monocytes # 1.0 H Eosinophils # 0.1 Basophils # 0.0 Nucleated Red Blood Cells # 0.0 Sodium Level 139 Potassium Level 3.8 Chloride Level 103 Carbon Dioxide Level 27 Anion Gap 9 Blood Urea Nitrogen 55 H Creatinine 1.60 H Est Glomerular Filtrat Rate mL/min Glucose Level 95 Calcium Level 9.0 Phosphorus Level 4.0 Magnesium Level 1.9 Medications Medication Current Medications Atorvastatin Calcium (Lipitor) 40 mg HS PO Last administered on 10/06/18 20:44; Admin Dose 40 MG; Start 10/04/18 at 21:00 Metoprolol Succinate (Toprol Xl) 50 mg DAILY PO Last administered on 10/07/18 08:51; Admin Dose 50 MG; Start 10/04/18 at 09:00 Albuterol/ Ipratropium (Duoneb) 3 ml Q4H RESP THERAPY PRN HHN sob; Start 10/04/18 at 08:00 Cefepime HCl 50 ml @ 100 mls/hr Q24H IVPB Last administered on 10/07/18 08:50; Admin Dose 100 MLS/HR; Start 10/05/18 at 09:00 Famotidine (Pepcid) 20 mg DAILY PO Last administered on 10/07/18 08:51; Admin Dose 20 MG; Start 10/05/18 at 09:00 Apixaban (Eliquis) 2.5 mg BID PO Last administered on 10/07/18 08:51; Admin Dose 2.5 MG; Start 10/05/18 at 10:00 Mupirocin (Bactroban) 1 applic BID TOP Last administered on 10/07/18 08:50; Admin Dose 1 APPLIC; Start 10/05/18 at 12:30 Docusate Sodium (Colace) 100 mg BID PO Last administered on 10/07/18 08:51; Admin Dose 100 MG; Start 10/05/18 at 15:00 Polyethylene Glycol (Miralax) 17 gm DAILY PO Last administered on 10/07/18 08:51; Admin Dose 17 GM; Start 10/05/18 at 15:00 Doxycycline Hyclate (Vibramycin) 100 mg BID PO Last administered on 10/07/18at 08:50; Admin Dose 100 MG; Start 10/05/18 at 15:30 Quetiapine Fumarate (Seroquel) 25 mg BID PO Last administered on 10/07/18at 08:51; Admin Dose 25 MG; Start 10/06/18 at 09:00 Acetaminophen (Tylenol Tab) 1,000 mg Q6H PRN PO MILD PAIN(1-3)OR ELEVATED TEMP Last administered on 10/07/18at 05:51; Admin Dose 1,000 MG; Start 10/06/18 at 22:00 Metolazone (Zaroxolyn) 5 mg DAILY@0530 PO ; Start 10/07/18 at 17:30 Furosemide (Lasix) 40 mg BID DIURETICS IV ; Start 10/07/18 at 18:00 EFRA BORDEN NP Oct 07, 2018 11:50
--- NOTE | 2018-10-07 12:11 | PN ---
DATE: 10/07/2018 SUBJECTIVE: The patient was agitated overnight. The patient has a psych consult pending. The patie nt was taken off high flow oxygen, currently on nasal cannula. No other events noted. OBJECTIVE: VITAL SIGNS: Blood pressure is 130/63, respirations 18, pulse 70, temperature 98.2. HEENT: Head is normocephalic. NECK: Supple. HEART: Regular rate. LUNGS: Show diminished breath sounds at the base. Positive rhonchi. ABDOMEN: Soft, nontender to palpation without rebound or guarding. EXTREMITIES: Negative for clubbing, cyanosis. Positive edema in the left lower leg. Right below kn ee amputation is noted. DERMATOLOGIC: No rashes. MUSCULOSKELETAL: No joint effusion. NEUROLOGIC: No change in exam. MEDICATIONS: Reviewed. LABORATORY DATA: Shows sodium 139, potassium 3.8, BUN 55, creatinine 1.60. White count 8.4, hemoglo bin 9.1, platelet count 286. ASSESSMENT AND PLAN: 1. Acute hypoxemic respiratory failure secondary to congestive heart failure exacerbation, chronic o bstructive pulmonary disease exacerbation, pneumonia. The patient is currently on nasal cannula. Co ntinue current medical management. Continue diuretics, antibiotics, nebulizers. Follow up with pulodilia hummel. 2. Sepsis secondary to tracheal bronchitis, possible pneumonia. Continue current antibiotic regimen . Follow up with infectious disease. 3. Acute systolic heart failure. The patient remains decompensated. Continue current diuretic sanchez men. Monitor electrolytes and renal function closely. 4. Nonoliguric acute kidney injury on top of chronic kidney disease. Etiology is likely secondary t o cardiorenal syndrome, hemodynamics. Renal function has improved with diuretic regimen. We will co ntinue. 5. Hyperkalemia, resolved. 6. Anemia. Continue to monitor hemoglobin and hematocrit levels. 7. Mineral bone disorder, monitor calcium and phosphorus levels. 8. Acute encephalopathy, etiology is toxic metabolic, possible underlying dementia. Continue to mon itor. 9. Anxiety disorder, mood disorder with behavioral aggressiveness. The patient is currently on Sero quel. Psych consult has been placed. 10. Coronary artery disease status post coronary artery bypass graft. Continue medical management. 11. Arrhythmia status post ICD placement. Continue to monitor. 12. History of peripheral vascular disease status post right below knee amputation. Continue to mon itor. 13. Hypertension. Continue current blood pressure regimen. 14. Dyslipidemia. Continue statin therapy. 15. History of throat cancer, status post tracheostomy with residual open ostium. 16. Gastrointestinal and deep vein thrombosis prophylaxis. DISPOSITION: A Hough evaluation has been placed. Dictated By: RICHARD CASTLE DO NR/GUS Conf#: [id number] DID#: [id number] CC: RICHARD CASTLE DO;*EndCC*
--- NOTE | 2018-10-07 16:06 | NUR ---
Case Mngt: MET WITH [facility] ([phone]), PATIENT ACCEPTED AND STILL WAITING FOR BED AVAILABILITY.
[2018-10-07] MEDS: METOLAZONE 5 MG TAB PO SCH (17:34)
--- NOTE | 2018-10-07 18:04 | NUR ---
Eoss No significant changes noted at this time. Pt shows no sob or distress.Pt is currently on room air with o2 sat at 99%. No signs and symptoms of pain or discomfort, pt kept clean dry and comfortable. Currently resting comfortably. Call light within reach, bed locked, and low. Will endorse accordingly
[2018-10-07] MEDS: ATORVASTATIN 40 MG TAB PO SCH (20:24)
[2018-10-08] VITALS (11 sets, daily range): BP systolic 130–144; BP diastolic 59–64; PULSE 70–75; RESP 18–20
--- NOTE | 2018-10-08 01:30 | NUR ---
AT ABOUT 0054,PATIENT NOTED TO BE AGITATED, ANXIOUS, COMBATIVE, YELLING, ATTEPTING TO GET OUT OF BED, WHEN REPOSITIONED, KICKING STAFF AND FIGHTING WITH STAFF. DR CASTLE CALLED, LEFT MESSAGE WITH ANSWERING SERVICE WHO STATED THAT DR. Noel GOMEZ IS DESKTOP MANAGER. DR GOMEZ HAS NOT RESPONDED UP TO THIS TIME SO CALLED AGAIN AND WAS ABLE TO NOTIFY HIM REGARDING PATIENT'S BEHAVIOR, NEW ORDERS FOR HALDOL 2 MG IM EVERY 4 HOURS FOR SEVERE AGITATION, NOTED AND CARRIED OUT.
[2018-10-08] MEDS: HALOPERIDOL 5 MG INJ IM PRN ×2 (01:46→07:58)
--- NOTE | 2018-10-08 02:54 | NUR ---
PATIENT SLOWLY CALMING DOWN ALTHOUGH STILL YELLING ONCE IN A WHILE, WILL CONTINUE TO MONITOR.
[2018-10-08] MEDS: METOLAZONE 5 MG TAB PO SCH (05:33)
[2018-10-08] MEDS: FUROSEMIDE 40 MG INJ IV SCH ×2 (06:18→18:24)
--- NOTE | 2018-10-08 06:47 | NUR ---
END OF THE SHIFT SUMMARY: PT A/A/O X 2, CONFUSED AND FORGETFUL AT TIMES, WANTING TO GO HOME. 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 ON ROOM AIT 94-96% O2 SAT. NO SHORTNESS OF BREATH NOTED. OLD TRACHEOSTOMY STOMA DRESSING CLEANSE WITH NS AND CHANGED WITH GAUZE DRESSING. REPOSITIONED EVERY 2 HOURS. REFUSED CONDOM CATH, INCONTINENCE CARE RENDERED, KEPT CLEAN AND DRY.LEFT LOWER EXTREMITY REMAINS SWOLLEN AND RED BUT MORE IMPROVED. PT BECAME AGITATED, COMBATIVE AND ANXIOUS AT ABOUT 0200, HLDOL 2 MG IM ADMINSITERED. AT THIS TIME PT IS QUIET AND SLEEPING. WILL ENDORSED TO AM NURSE.
--- NOTE | 2018-10-08 07:25 | PN ---
Date/Time of Note Date/Time of Note DATE: 10/08/18 TIME: 07:24 Assessment/Plan VTE Prophylaxis Risk score (from Ns)>0 risk: 8 SCD applied (from [facility]): No SCD contraindicated: other Pharmacological prophylaxis: other Lines/Catheters IV C[facility] Type [facility]from [facility] Saline Lock Urinary Cath still in place: Yes Reason Cath still needed: urinary retention Assessment/Plan Hospital Course SUBJECTIVE: The patient was agitated overnight and was given Haldol. The patient has a psych consult pending. The patient was taken off high flow oxygen, currently on nasal cannula. No other events noted. no fever, chills, vomiting, new rash, hematuria, melena, or diaphoresis OBJECTIVE: HEENT: Head is normocephalic. NECK: Supple. HEART: Regular rate. LUNGS: Show diminished breath sounds at the base. Positive rhonchi. ABDOMEN: Soft, nontender to palpation without rebound or guarding. EXTREMITIES: Negative for clubbing, cyanosis. Positive edema in the left lower leg. Right below knee amputation is noted. DERMATOLOGIC: No rashes. MUSCULOSKELETAL: No joint effusion. NEUROLOGIC: No change in exam. MEDICATIONS: Reviewed. ASSESSMENT AND PLAN: 1. Acute hypoxemic respiratory failure secondary to congestive heart failure exacerbation, chronic obstructive pulmonary disease exacerbation, pneumonia. The patient is currently on nasal cannula. Continue current medical management. Continue diuretics, antibiotics, nebulizers. Follow up with pulmonary. 2. Sepsis secondary to tracheal bronchitis, possible pneumonia. Continue current antibiotic regimen. Follow up with infectious disease. 3. Acute systolic heart failure. The patient remains decompensated. Continue current diuretic regimen. Monitor electrolytes and renal function closely. 4. Nonoliguric acute kidney injury on top of chronic kidney disease. Etiology is likely secondary to cardiorenal syndrome, hemodynamics. Renal function has improved with diuretic regimen. We will continue. 5. Hyperkalemia, resolved. 6. Anemia. Continue to monitor hemoglobin and hematocrit levels. 7. Mineral bone disorder, monitor calcium and phosphorus levels. 8. Acute encephalopathy, etiology is toxic metabolic, possible underlying dementia. Continue to monitor. 9. Anxiety disorder, mood disorder with behavioral aggressiveness. The patient is currently on Seroquel. Psych consult has been placed. 10. Coronary artery disease status post coronary artery bypass graft. Continue medical management. 11. Arrhythmia status post ICD placement. Continue to monitor. 12. History of peripheral vascular disease status post right below knee amputation. Continue to monitor. 13. Hypertension. Continue current blood pressure regimen. 14. Dyslipidemia. Continue statin therapy. 15. History of throat cancer, status post tracheostomy with residual open ostium. 16. Gastrointestinal and deep vein thrombosis prophylaxis. Result Diagram: 10/08/18 0545 10/08/18 0545 Results 24hrs Laboratory Tests Test 10/08/18 05:45 White Blood Count 12.4 #H Red Blood Count 3.46 L Hemoglobin 9.5 L Hematocrit 29.6 L Mean Corpuscular Volume 85.5 Mean Corpuscular Hemoglobin 27.5 L Mean Corpuscular Hemoglobin Concent 32.1 Red Cell Distribution Width 17.9 H Platelet Count 313 Mean Platelet Volume 10.2 Immature Granulocytes % 0.200 Neutrophils % 78.5 H Lymphocytes % 10.6 L Monocytes % 9.7 Eosinophils % 0.5 Basophils % 0.5 Nucleated Red Blood Cells % 0.0 Immature Granulocytes # 0.030 Neutrophils # 9.7 H Lymphocytes # 1.3 Monocytes # 1.2 H Eosinophils # 0.1 Basophils # 0.1 Nucleated Red Blood Cells # 0.0 Sodium Level 140 Potassium Level 3.7 Chloride Level 99 Carbon Dioxide Level 32 H Anion Gap 9 Blood Urea Nitrogen 56 H Creatinine 1.78 H Est Glomerular Filtrat Rate mL/min Glucose Level 103 Calcium Level 9.4 Phosphorus Level 3.7 Magnesium Level 1.9 Exam/Review of Systems Exam Vitals Vital Signs Date Temp Pulse Resp B/P (MAP) Pulse Ox O2 O2 Flow FiO2 Time Delivery Rate 10/08/18 98.2 75 18 144/64 98 04:20 (90) 10/08/18 2.0 04:05 10/07/18 Room Air 17:59 10/06/18 30 20:00 Intake and Output 10/07/18 10/07/18 10/08/18 1515:00 23:00 07:00 IntakeIntake Total 350 ml 800 ml 450 ml OutputOutput Total 1800 ml 300 ml BalanceBalance 350 ml -1000 ml 150 ml Results Results 24hrs Laboratory Tests Test 10/08/18 05:45 White Blood Count 12.4 #H Red Blood Count 3.46 L Hemoglobin 9.5 L Hematocrit 29.6 L Mean Corpuscular Volume 85.5 Mean Corpuscular Hemoglobin 27.5 L Mean Corpuscular Hemoglobin Concent 32.1 Red Cell Distribution Width 17.9 H Platelet Count 313 Mean Platelet Volume 10.2 Immature Granulocytes % 0.200 Neutrophils % 78.5 H Lymphocytes % 10.6 L Monocytes % 9.7 Eosinophils % 0.5 Basophils % 0.5 Nucleated Red Blood Cells % 0.0 Immature Granulocytes # 0.030 Neutrophils # 9.7 H Lymphocytes # 1.3 Monocytes # 1.2 H Eosinophils # 0.1 Basophils # 0.1 Nucleated Red Blood Cells # 0.0 Sodium Level 140 Potassium Level 3.7 Chloride Level 99 Carbon Dioxide Level 32 H Anion Gap 9 Blood Urea Nitrogen 56 H Creatinine 1.78 H Est Glomerular Filtrat Rate mL/min Glucose Level 103 Calcium Level 9.4 Phosphorus Level 3.7 Magnesium Level 1.9 Medications Medication Current Medications Atorvastatin Calcium (Lipitor) 40 mg HS PO Last administered on 10/07/18 20:24; Admin Dose 40 MG; Start 10/04/18 at 21:00 Metoprolol Succinate (Toprol Xl) 50 mg DAILY PO Last administered on 10/07/18 08:51; Admin Dose 50 MG; Start 10/04/18 at 09:00 Albuterol/ Ipratropium (Duoneb) 3 ml Q4H RESP THERAPY PRN HHN sob; Start 10/04/18 at 08:00 Cefepime HCl 50 ml @ 100 mls/hr Q24H IVPB Last administered on 10/07/18 08:50; Admin Dose 100 MLS/HR; Start 10/05/18 at 09:00 Famotidine (Pepcid) 20 mg DAILY PO Last administered on 10/07/18 08:51; Admin Dose 20 MG; Start 10/05/18 at 09:00 Apixaban (Eliquis) 2.5 mg BID PO Last administered on 10/07/18 20:24; Admin Dose 2.5 MG; Start 10/05/18 at 10:00 Mupirocin (Bactroban) 1 applic BID TOP Last administered on 10/07/18 20:25; Admin Dose 1 APPLIC; Start 10/05/18 at 12:30 Docusate Sodium (Colace) 100 mg BID PO Last administered on 10/07/18 20:24; Admin Dose 100 MG; Start 10/05/18 at 15:00 Polyethylene Glycol (Miralax) 17 gm DAILY PO Last administered on 10/07/18 08:51; Admin Dose 17 GM; Start 10/05/18 at 15:00 Doxycycline Hyclate (Vibramycin) 100 mg BID PO Last administered on 10/07/18 20:24; Admin Dose 100 MG; Start 10/05/18 at 15:30 Quetiapine Fumarate (Seroquel) 25 mg BID PO Last administered on 10/07/18 20:24; Admin Dose 25 MG; Start 10/06/18 at 09:00 Acetaminophen (Tylenol Tab) 1,000 mg Q6H PRN PO MILD PAIN(1-3)OR ELEVATED TEMP Last administered on 10/07/18 20:25; Admin Dose 1,000 MG; Start 10/06/18 at 22:00 Metolazone (Zaroxolyn) 5 mg DAILY@0530 PO Last administered on 10/08/18 05:33; Admin Dose 5 MG; Start 10/07/18 at 17:30 Furosemide (Lasix) 40 mg BID DIURETICS IV Last administered on 10/08/18 06:18; Admin Dose 40 MG; Start 10/07/18 at 18:00 Haloperidol (Haldol) 2 mg Q4H PRN IM FOR SEVERE AGITATION Last administered on 10/08/18 01:46; Admin Dose 2 MG; Start 10/08/18 at 02:00 FELIPE GOMEZ DO Oct 08, 2018 07:25
[2018-10-08] MEDS: CEFEPIME 1GM/50 ML (PMX) 50 ML IVPB SCH (07:57)
[2018-10-08] MEDS: POLYETHYLENE GLYCOL 17 GM PACKET PO SCH (07:58)
[2018-10-08] MEDS: DOXYCYCLINE 100 MG TAB PO SCH ×2 (07:59→21:47)
[2018-10-08] MEDS: QUETIAPINE 25 MG TAB PO SCH ×2 (07:59→21:47)
[2018-10-08] MEDS: DOCUSATE SODIUM 100 MG CAP PO SCH ×2 (07:59→21:47)
[2018-10-08] MEDS: APIXABAN 5 MG TABLET PO SCH ×2 (07:59→21:47)
[2018-10-08] MEDS: FAMOTIDINE 20 MG TAB PO SCH (07:59)
[2018-10-08] MEDS: METOPROLOL (XL) 50 MG TAB PO SCH (07:59)
[2018-10-08] MEDS: MUPIROCIN 2% 22 GM OINT TOP SCH ×2 (08:00→21:48)
[2018-10-08] MEDS: ACETAMINOPHEN 500 MG TAB PO PRN (09:06)
--- NOTE | 2018-10-08 13:20 | CONS ---
Assessment/Plan Assessment/Plan Hospital Course (Demo Recall) Patient is awake, confused, no fevers overnight Microbiology: Blood cultures negative nares swab positive MRSA Chest x-ray revealed interstitial infiltrates/edema moderately improved. Mild improvement in bibasilar alveolar infiltrates Antimicrobials: Cefepime Doxycycline Physical examination: This is a fragile well-developed elderly man who is awake in no distress. Head atraumatic normocephalic neck is supple patient has a dressing over his trachea chest rise symmetrical breath sounds with bilateral scattered rhonchi. Heart: S1-S2. Abdomen soft bowel sounds present. Extremities with left lower extremity edema and erythema, patient is right below-knee amputation Assessment: 1. Acute hypoxemic respiratory failure secondary to fluid overload COPD exacerbation, possible pneumonia 2. Left lower extremity cellulitis 3. MRSA nares consolidation 4. History of peripheral vascular disease status post right BKA 5. Acute on chronic kidney disease 6. Dementia 7. 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 Plan: Remains unchanged, continue abx, will repeat cxr in am Consultation Date/Type/Reason Admit Date/Time Oct 04, 2018 at 01:12 Initial Consult Date 10/04/18 Type of Consult id Requesting Provider: RICHARD CASTLE DO Date/Time of Note DATE: 10/08/18 TIME: 13:20 Exam/Review of Systems Exam Vitals Vital Signs Date Temp Pulse Resp B/P (MAP) Pulse Ox O2 O2 Flow FiO2 Time Delivery Rate 10/08/18 70 12:01 10/08/18 98.5 20 137/62 92 Room Air 11:14 (87) 10/08/18 2.0 04:05 10/06/18 30 20:00 Intake and Output 10/07/18 10/07/18 10/08/18 1515:00 23:00 07:00 IntakeIntake Total 350 ml 800 ml 450 ml OutputOutput Total 1800 ml 300 ml BalanceBalance 350 ml -1000 ml 150 ml Results Result Diagram: 10/08/18 0545 10/08/18 0545 Results 24hrs Laboratory Tests Test 10/08/18 05:45 White Blood Count 12.4 #H Red Blood Count 3.46 L Hemoglobin 9.5 L Hematocrit 29.6 L Mean Corpuscular Volume 85.5 Mean Corpuscular Hemoglobin 27.5 L Mean Corpuscular Hemoglobin Concent 32.1 Red Cell Distribution Width 17.9 H Platelet Count 313 Mean Platelet Volume 10.2 Immature Granulocytes % 0.200 Neutrophils % 78.5 H Lymphocytes % 10.6 L Monocytes % 9.7 Eosinophils % 0.5 Basophils % 0.5 Nucleated Red Blood Cells % 0.0 Immature Granulocytes # 0.030 Neutrophils # 9.7 H Lymphocytes # 1.3 Monocytes # 1.2 H Eosinophils # 0.1 Basophils # 0.1 Nucleated Red Blood Cells # 0.0 Sodium Level 140 Potassium Level 3.7 Chloride Level 99 Carbon Dioxide Level 32 H Anion Gap 9 Blood Urea Nitrogen 56 H Creatinine 1.78 H Est Glomerular Filtrat Rate mL/min Glucose Level 103 Calcium Level 9.4 Phosphorus Level 3.7 Magnesium Level 1.9 Medications Medication Current Medications Atorvastatin Calcium (Lipitor) 40 mg HS PO Last administered on 10/07/18 20:24; Admin Dose 40 MG; Start 10/04/18 at 21:00 Metoprolol Succinate (Toprol Xl) 50 mg DAILY PO Last administered on 10/08/18 07:59; Admin Dose 50 MG; Start 10/04/18 at 09:00 Albuterol/ Ipratropium (Duoneb) 3 ml Q4H RESP THERAPY PRN HHN sob; Start 10/04/18 at 08:00 Cefepime HCl 50 ml @ 100 mls/hr Q24H IVPB Last administered on 10/08/18 07:57; Admin Dose 100 MLS/HR; Start 10/05/18 at 09:00 Famotidine (Pepcid) 20 mg DAILY PO Last administered on 10/08/18 07:59; Admin Dose 20 MG; Start 10/05/18 at 09:00 Apixaban (Eliquis) 2.5 mg BID PO Last administered on 10/08/18 07:59; Admin Dose 2.5 MG; Start 10/05/18 at 10:00 Mupirocin (Bactroban) 1 applic BID TOP Last administered on 10/08/18 08:00; Admin Dose 1 APPLIC; Start 10/05/18 at 12:30 Docusate Sodium (Colace) 100 mg BID PO Last administered on 10/08/18 07:59; Admin Dose 100 MG; Start 10/05/18 at 15:00 Polyethylene Glycol (Miralax) 17 gm DAILY PO Last administered on 10/08/18 07:58; Admin Dose 17 GM; Start 10/05/18 at 15:00 Doxycycline Hyclate (Vibramycin) 100 mg BID PO Last administered on 10/08/18 07:59; Admin Dose 100 MG; Start 10/05/18 at 15:30 Quetiapine Fumarate (Seroquel) 25 mg BID PO Last administered on 10/08/18 07:59; Admin Dose 25 MG; Start 10/06/18 at 09:00 Acetaminophen (Tylenol Tab) 1,000 mg Q6H PRN PO MILD PAIN(1-3)OR ELEVATED TEMP Last administered on 10/08/18 09:06; Admin Dose 1,000 MG; Start 10/06/18 at 22:00 Metolazone (Zaroxolyn) 5 mg DAILY@0530 PO Last administered on 10/08/18 05:33; Admin Dose 5 MG; Start 10/07/18 at 17:30 Furosemide (Lasix) 40 mg BID DIURETICS IV Last administered on 10/08/18 06:18; Admin Dose 40 MG; Start 10/07/18 at 18:00 Haloperidol (Haldol) 2 mg Q4H PRN IM FOR SEVERE AGITATION Last administered on 10/08/18 07:58; Admin Dose 2 MG; Start 10/08/18 at 02:00 EFRA BORDEN NP Oct 08, 2018 13:20
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
--- NOTE | 2018-10-08 18:50 | NUR ---
EOSS: Patient is aox3. Patient screaming when awake and always trying to out of bed. Patient received 1 dose of Haldol. Tele psych consult was done. Dr. Conrad Camarillo spoke to patient @[id number]. He said he is going to make a recommendation. Will endorse plan of care to the next shift.
[2018-10-08] MEDS: ATORVASTATIN 40 MG TAB PO SCH (21:47)
[2018-10-09] VITALS (11 sets, daily range): BP systolic 122–133; BP diastolic 59–72; PULSE 65–85; RESP 18–20
[2018-10-09] MEDS: METOLAZONE 5 MG TAB PO SCH (05:36)
--- NOTE | 2018-10-09 06:04 | NUR ---
NOTIFIED DR. JOSE ROGEL (ON-CALL) REGARDING PT SBP ON THE 90S. PT IS GOING TO RECEIVE LASIX DOSE AT THIS TIME, NO PARAMETER WAS SET BY . AWAITING VERIFICATION
[2018-10-09] MEDS: FUROSEMIDE 40 MG INJ IV SCH ×2 (06:26→17:45)
--- NOTE | 2018-10-09 06:36 | NUR ---
EOSS: PT SLEPT MOST OF THE NIGHT. KEPT ON NC 2 LPM. NO RESP DISTRESS NOTED. BP PICKED UP AND WAS GIVEN LASIX DOSE. TO CONTINUE TO MONITOR.
--- NOTE | 2018-10-09 07:19 | PN ---
Date/Time of Note Date/Time of Note DATE: 10/09/18 TIME: 07:18 Assessment/Plan VTE Prophylaxis Risk score (from Ns)>0 risk: 10 SCD applied (from [facility]): No SCD contraindicated: other Pharmacological prophylaxis: other Lines/Catheters IV C[facility]ter Type (from [facility] Saline Lock Urinary Cath still in place: Yes Reason Cath still needed: urinary retention Assessment/Plan Hospital Course SUBJECTIVE: less agitated. The patient has a psych consult pending. The patient was taken off high flow oxygen, currently on nasal cannula. No other events noted. no fever, chills, vomiting, new rash, hematuria, melena, or diaphoresis OBJECTIVE: HEENT: Head is normocephalic. NECK: Supple. HEART: Regular rate. LUNGS: Show diminished breath sounds at the base. Positive rhonchi. ABDOMEN: Soft, nontender to palpation without rebound or guarding. EXTREMITIES: Negative for clubbing, cyanosis. Positive edema in the left lower leg. Right below knee amputation is noted. DERMATOLOGIC: No rashes. MUSCULOSKELETAL: No joint effusion. NEUROLOGIC: No change in exam. MEDICATIONS: Reviewed. ASSESSMENT AND PLAN: 1. Acute hypoxemic respiratory failure secondary to congestive heart failure exacerbation, chronic obstructive pulmonary disease exacerbation, pneumonia. The patient is currently on nasal cannula. Continue current medical management. Continue diuretics, antibiotics, nebulizers. Follow up with pulmonary. 2. Sepsis secondary to tracheal bronchitis, possible pneumonia. Continue current antibiotic regimen. Follow up with infectious disease. 3. Acute systolic heart failure. The patient remains decompensated. Continue current diuretic regimen. Monitor electrolytes and renal function closely. 4. Nonoliguric acute kidney injury on top of chronic kidney disease. Etiology is likely secondary to cardiorenal syndrome, hemodynamics. Renal function has improved with diuretic regimen. We will continue. 5. Hyperkalemia, resolved. 6. Anemia. Continue to monitor hemoglobin and hematocrit levels. 7. Mineral bone disorder, monitor calcium and phosphorus levels. 8. Acute encephalopathy, etiology is toxic metabolic, possible underlying dementia. Continue to monitor. 9. Anxiety disorder, mood disorder with behavioral aggressiveness. The patient is currently on Seroquel. Psych consult has been placed. 10. Coronary artery disease status post coronary artery bypass graft. Continue medical management. 11. Arrhythmia status post ICD placement. Continue to monitor. 12. History of peripheral vascular disease status post right below knee amputation. Continue to monitor. 13. Hypertension. Continue current blood pressure regimen. 14. Dyslipidemia. Continue statin therapy. 15. History of throat cancer, status post tracheostomy with residual open ostium. 16. Gastrointestinal and deep vein thrombosis prophylaxis. transfer to [place] in AM if stable Result Diagram: 10/08/1845 10/08/1845 Exam/Review of Systems Exam Vitals Vital Signs Date Temp Pulse Resp B/P (MAP) Pulse Ox O2 O2 Flow FiO2 Time Delivery Rate 10/09/18 2.0 05:24 10/09/18 70 04:00 10/09/18 98.0 20 122/59 95 Nasal 03:44 (80) Cannula 10/06/18 30 20:00 Intake and Output 10/08/18 10/08/18 10/09/18 1515:00 23:00 07:00 IntakeIntake Total 500 ml OutputOutput Total 250 ml BalanceBalance 250 ml Medications Medication Current Medications Atorvastatin Calcium (Lipitor) 40 mg HS PO Last administered on 10/08/18 21:47; Admin Dose 40 MG; Start 10/04/18 at 21:00 Metoprolol Succinate (Toprol Xl) 50 mg DAILY PO Last administered on 10/08/18 07:59; Admin Dose 50 MG; Start 10/04/18 at 09:00 Albuterol/ Ipratropium (Duoneb) 3 ml Q4H RESP THERAPY PRN HHN sob Last administered on 10/08/18 15:22; Admin Dose 3 ML; Start 10/04/18 at 08:00 Cefepime HCl 50 ml @ 100 mls/hr Q24H IVPB Last administered on 10/08/18 07:57; Admin Dose 100 MLS/HR; Start 10/05/18 at 09:00 Famotidine (Pepcid) 20 mg DAILY PO Last administered on 10/08/18 07:59; Admin Dose 20 MG; Start 10/05/18 at 09:00 Apixaban (Eliquis) 2.5 mg BID PO Last administered on 10/08/18 21:47; Admin Do se 2.5 MG; Start 10/05/18 at 10:00 Mupirocin (Bactroban) 1 applic BID TOP Last administered on 10/08/18 21:48; Admin Dose 1 APPLIC; Start 10/05/18 at 12:30 Docusate Sodium (Colace) 100 mg BID PO Last administered on 10/08/18 21:47; Admin Dose 100 MG; Start 10/05/18 at 15:00 Polyethylene Glycol (Miralax) 17 gm DAILY PO Last administered on 10/08/18 07:58; Admin Dose 17 GM; Start 10/05/18 at 15:00 Doxycycline Hyclate (Vibramycin) 100 mg BID PO Last administered on 10/08/18 21:47; Admin Dose 100 MG; Start 10/05/18 at 15:30 Quetiapine Fumarate (Seroquel) 25 mg BID PO Last administered on 10/08/18 21:47; Admin Dose 25 MG; Start 10/06/18 at 09:00 Acetaminophen (Tylenol Tab) 1,000 mg Q6H PRN PO MILD PAIN(1-3)OR ELEVATED TEMP Last administered on 10/08/18 09:06; Admin Dose 1,000 MG; Start 10/06/18 at 22:00 Metolazone (Zaroxolyn) 5 mg DAILY@0530 PO Last administered on 10/09/18 05:36; Admin Dose 5 MG; Start 10/07/18 at 17:30 Furosemide (Lasix) 40 mg BID DIURETICS IV Last administered on 10/09/18 06:26; Admin Dose 40 MG; Start 10/07/18 at 18:00 Haloperidol (Haldol) 2 mg Q4H PRN IM FOR SEVERE AGITATION Last administered on 10/08/18 07:58; Admin Dose 2 MG; Start 10/08/18 at 02:00 FELIPE GOMEZ DO Oct 09, 2018 07:19
[2018-10-09] MEDS: CEFEPIME 1GM/50 ML (PMX) 50 ML IVPB SCH (09:56)
[2018-10-09] MEDS: APIXABAN 5 MG TABLET PO SCH ×2 (09:56→20:35)
[2018-10-09] MEDS: MUPIROCIN 2% 22 GM OINT TOP SCH ×2 (09:56→20:36)
[2018-10-09] MEDS: POLYETHYLENE GLYCOL 17 GM PACKET PO SCH (09:56)
[2018-10-09] MEDS: FAMOTIDINE 20 MG TAB PO SCH (09:56)
[2018-10-09] MEDS: QUETIAPINE 25 MG TAB PO SCH ×2 (09:56→20:35)
[2018-10-09] MEDS: DOXYCYCLINE 100 MG TAB PO SCH ×2 (09:56→20:35)
[2018-10-09] MEDS: DOCUSATE SODIUM 100 MG CAP PO SCH ×2 (09:56→20:35)
[2018-10-09] MEDS: METOPROLOL (XL) 50 MG TAB PO SCH (09:57)
--- NOTE | 2018-10-09 14:29 | CONS ---
Consultation Date/Type/Reason Admit Date/Time Oct 04, 2018 at 01:12 Initial Consult Date SUBJECTIVE: Patient is awake,, confused, afebrile. nO acute events over night. VS: stable T: 98.0 LABS: reviewed. Microbiology: Blood cultures negative nares swab positive MRSA Chest x-ray revealed interstitial infiltrates/edema moderately improved. Mild improvement in bibasilar alveolar infiltrates Antimicrobials: Cefepime and Doxycycline Physical examination: GEN: This is a fragile well-developed elderly man who is awake in no distress. HENT: Head atraumatic normocephalic, neck is supple, patient has a dressing over his trachea PULM: chest rise symmetrical breath sounds with bilateral scattered rhonchi. Heart: S1-S2. Abdomen soft bowel sounds present. Extremities with left lower extremity edema and erythema, patient is right below-knee amputation Assessment: 1. Acute hypoxemic respiratory failure secondary to fluid overload COPD exacerbation, possible pneumonia 2. Left lower extremity cellulitis 3. MRSA nares consolidation 4. History of peripheral vascular disease status post right BKA 5. Acute on chronic kidney disease 6. Dementia 7. 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 Plan: Remains unchanged. Will continue abx,. AM labs and CXR Requesting Provider: RICHARD CASTLE DO Date/Time of Note DATE: 10/09/18 TIME: 14:27 Exam/Review of Systems Exam Vitals Vital Signs Date Temp Pulse Resp B/P (MAP) Pulse Ox O2 O2 Flow FiO2 Time Delivery Rate 10/09/18 Nasal 2.0 12:10 Cannula 10/09/18 98.0 81 20 127/68 98 12:04 (87) 10/06/18 30 20:00 Intake and Output 10/08/18 10/08/18 10/09/18 1515:00 23:00 07:00 IntakeIntake Total 500 ml OutputOutput Total 250 ml BalanceBalance 250 ml Results Result Diagram: 10/08/18 0545 10/08/18 0545 Medications Medication Current Medications Atorvastatin Calcium (Lipitor) 40 mg HS PO Last administered on 10/08/18at 21:47; Admin Dose 40 MG; Start 10/04/18 at 21:00 Metoprolol Succinate (Toprol Xl) 50 mg DAILY PO Last administered on 10/09/18at 09:57; Admin Dose 50 MG; Start 10/04/18 at 09:00 Albuterol/ Ipratropium (Duoneb) 3 ml Q4H RESP THERAPY PRN HHN sob Last administered on 10/08/18 15:22; Admin Dose 3 ML; Start 10/04/18 at 08:00 Cefepime HCl 50 ml @ 100 mls/hr Q24H IVPB Last administered on 10/09/18 09:56; Admin Dose 100 MLS/HR; Start 10/05/18 at 09:00 Famotidine (Pepcid) 20 mg DAILY PO Last administered on 10/09/18 09:56; Admin Dose 20 MG; Start 10/05/18 at 09:00 Apixaban (Eliquis) 2.5 mg BID PO Last administered on 10/09/18 09:56; Admin Dose 2.5 MG; Start 10/05/18 at 10:00 Mupirocin (Bactroban) 1 applic BID TOP Last administered on 10/09/18 09:56; Admin Dose 1 APPLIC; Start 10/05/18 at 12:30 Docusate Sodium (Colace) 100 mg BID PO Last administered on 10/09/18 09:56; Admin Dose 100 MG; Start 10/05/18 at 15:00 Polyethylene Glycol (Miralax) 17 gm DAILY PO Last administered on 10/09/18 09:56; Admin Dose 17 GM; Start 10/05/18 at 15:00 Doxycycline Hyclate (Vibramycin) 100 mg BID PO Last administered on 10/09/18 09:56; Admin Dose 100 MG; Start 10/05/18 at 15:30 Quetiapine Fumarate (Seroquel) 25 mg BID PO Last administered on 10/09/18 09:56; Admin Dose 25 MG; Start 10/06/18 at 09:00 Acetaminophen (Tylenol Tab) 1,000 mg Q6H PRN PO MILD PAIN(1-3)OR ELEVATED TEMP Last administered on 10/08/18 09:06; Admin Dose 1,000 MG; Start 10/06/18 at 22:00 Metolazone (Zaroxolyn) 5 mg DAILY@0530 PO Last administered on 10/09/18 05:36; Admin Dose 5 MG; Start 10/07/18 at 17:30 Furosemide (Lasix) 40 mg BID DIURETICS IV Last administered on 10/09/18at 06:26; Admin Dose 40 MG; Start 10/07/18 at 18:00 Haloperidol (Haldol) 2 mg Q4H PRN IM FOR SEVERE AGITATION Last administered on 10/08/18at 07:58; Admin Dose 2 MG; Start 10/08/18 at 02:00 MARIA ELENA ULLOA Oct 09, 2018 14:29
--- NOTE | 2018-10-09 16:23 | CONS ---
Assessment/Plan Assessment/Plan Hospital Course (Demo Recall) Impression: Acute hypoxic hypercapnic respiratory failure Acute on chronic systolic heart failure, ischemic cardiomyopathy Heart block status post biV ICD, pacer dependent History of hypertension Acute on chronic kidney disease, improving COPD and possible COPD exacerbation and possible pneumonia History of tracheostomy and oropharyngeal cancers Atrial fibrillation Recommendations: Continue metoprolol for cardiomyopathy, resume TAYLOR when clinical status improves Antibiotic as per IM/ pulm recommendations. diuresis as tolerated. Continue respiratory care oxygen supplement. BiPAP /high flow as needed cont eliquis for atrial fibrillation Consultation Date/Type/Reason Admit Date/Time Oct 04, 2018 at 01:12 Initial Consult Date 10/04/18 Type of Consult Cardiology Requesting Provider: RICHARD CASTLE DO Date/Time of Note DATE: 10/09/18 TIME: 16:20 24 HR Interval Summary Free Text/Dictation No chest pain, no dyspnea. Able to speak more clearly when covering his tracheostomy Exam/Review of Systems Vital Signs Vitals Vital Signs Date Temp Pulse Resp B/P (MAP) Pulse Ox O2 O2 Flow FiO2 Time Delivery Rate 10/09/18 97.0 80 18 133/72 98 16:14 (92) 10/09/18 Nasal 2.0 12:10 Cannula 10/06/18 30 20:00 Intake and Output 10/08/18 10/08/18 10/09/18 1515:00 23:00 07:00 IntakeIntake Total 500 ml OutputOutput Total 250 ml BalanceBalance 250 ml Exam Constitutional: alert, oriented, frail Psych: nl mood/affect Head: normocephalic, atraumatic Eyes: nl conjunctiva, EOMI, nl lids, nl sclera ENMT: nl external ears & nose, nl lips & teeth Neck: other (tracheostomy with mucus output); No jvd Respiratory: normal air movement, crackles/rales Cardiovascular: regular rate and rhythm; No murmurs/extra sounds Gastrointestinal: soft, nl liver, spleen, non-tender Extremities: normal pulses Neurological: nl mental status, nl speech Skin: nl turgor; No rash or lesions Labs Result Diagram: 10/08/1845 10/08/1845 Medications Medications Current Medications Atorvastatin Calcium (Lipitor) 40 mg HS PO Last administered on 10/08/18at 21:47; Admin Dose 40 MG; Start 10/04/18 at 21:00 Metoprolol Succinate (Toprol Xl) 50 mg DAILY PO Last administered on 10/09/18 09:57; Admin Dose 50 MG; Start 10/04/18 at 09:00 Albuterol/ Ipratropium (Duoneb) 3 ml Q4H RESP THERAPY PRN HHN sob Last administered on 10/08/18 15:22; Admin Dose 3 ML; Start 10/04/18 at 08:00 Cefepime HCl 50 ml @ 100 mls/hr Q24H IVPB Last administered on 10/09/18 09:56; Admin Dose 100 MLS/HR; Start 10/05/18 at 09:00 Famotidine (Pepcid) 20 mg DAILY PO Last administered on 10/09/18 09:56; Admin Dose 20 MG; Start 10/05/18 at 09:00 Apixaban (Eliquis) 2.5 mg BID PO Last administered on 10/09/18 09:56; Admin Dose 2.5 MG; Start 10/05/18 at 10:00 Mupirocin (Bactroban) 1 applic BID TOP Last administered on 10/09/18 09:56; Admin Dose 1 APPLIC; Start 10/05/18 at 12:30 Docusate Sodium (Colace) 100 mg BID PO Last administered on 10/09/18 09:56; Admin Dose 100 MG; Start 10/05/18 at 15:00 Polyethylene Glycol (Miralax) 17 gm DAILY PO Last administered on 10/09/18 09:56; Admin Dose 17 GM; Start 10/05/18 at 15:00 Doxycycline Hyclate (Vibramycin) 100 mg BID PO Last administered on 10/09/18 09:56; Admin Dose 100 MG; Start 10/05/18 at 15:30 Quetiapine Fumarate (Seroquel) 25 mg BID PO Last administered on 10/09/18 09:56; Admin Dose 25 MG; Start 10/06/18 at 09:00 Acetaminophen (Tylenol Tab) 1,000 mg Q6H PRN PO MILD PAIN(1-3)OR ELEVATED TEMP Last administered on 10/08/18 09:06; Admin Dose 1,000 MG; Start 10/06/18 at 22:00 Metolazone (Zaroxolyn) 5 mg DAILY@0530 PO Last administered on 10/09/18at 05:36; Admin Dose 5 MG; Start 10/07/18 at 17:30 Furosemide (Lasix) 40 mg BID DIURETICS IV Last administered on 10/09/18at 06:26; Admin Dose 40 MG; Start 10/07/18 at 18:00 Haloperidol (Haldol) 2 mg Q4H PRN IM FOR SEVERE AGITATION Last administered on 10/08/18at 07:58; Admin Dose 2 MG; Start 10/08/18 at 02:00 JEAN PAUL CRISOSTOMO Oct 09, 2018 16:23
--- NOTE | 2018-10-09 18:36 | NUR ---
END OF SHIFT A/OX2, FORGETFUL, DOES OT DEMONSTRATE USE OF CALL LIGHT, YELLS OUT WHEN ASSIST NEEDED AND PT IN FRONT ROOM FOR CLOSER MONITORING, DENIES PAIN, SUPP O2 2L NC, TRACH SITE OPEN AND WNL, CONTACT ISOLATION, MAX ASSIST C ADLS, PT ABLE TO TURN SELF, LACK OF ABILITY TO MAXIMALLY BE ACTIVE IN PLAN OF CARE AND SELF CARE, IV ATBX PER ORDER, POTENTIAL TRANSFER BACK TO [place] WHEN CLEAR BY
[2018-10-09] MEDS: ATORVASTATIN 40 MG TAB PO SCH (20:35)
[2018-10-09] MEDS: ACETAMINOPHEN 500 MG TAB PO PRN (23:38)
[2018-10-10] VITALS (12 sets, daily range): BP systolic 102–150; BP diastolic 53–69; PULSE 70–93; RESP 18
[2018-10-10] MEDS: METOLAZONE 5 MG TAB PO SCH (05:45)
[2018-10-10] MEDS: FUROSEMIDE 40 MG INJ IV SCH (06:22)
--- NOTE | 2018-10-10 06:52 | NUR ---
EOSS: Pt. a/o x 4, forgetful at times. Stoma open to air per pts request. Sleeping comfortably in bed. Hourly rounding completed. Tylenol given for pain. Vital signs stable. Pt on 2L NC. Skin kept clean, dry, and intact. Pt. stable, no significant changes noted upon my shift.
[2018-10-10] MEDS: DOCUSATE SODIUM 100 MG CAP PO SCH ×2 (07:56→20:34)
[2018-10-10] MEDS: POLYETHYLENE GLYCOL 17 GM PACKET PO SCH (07:56)
[2018-10-10] MEDS: DOXYCYCLINE 100 MG TAB PO SCH (08:56)
[2018-10-10] MEDS: QUETIAPINE 25 MG TAB PO SCH ×2 (08:56→20:34)
[2018-10-10] MEDS: FAMOTIDINE 20 MG TAB PO SCH (08:56)
[2018-10-10] MEDS: MUPIROCIN 2% 22 GM OINT TOP SCH ×2 (08:56→20:37)
[2018-10-10] MEDS: APIXABAN 5 MG TABLET PO SCH ×2 (08:56→20:33)
[2018-10-10] MEDS: METOPROLOL (XL) 50 MG TAB PO SCH (08:57)
--- NOTE | 2018-10-10 09:08 | PN ---
DATE: 10/10/2018 SUBJECTIVE: The patient is stable, no events overnight. No fevers, chills, nausea, vomiting. OBJECTIVE: VITAL SIGNS: Blood pressure is 144/65, pulse 70, respiration 18, temperature 98.6. HEENT: Head is normocephalic. NECK: Supple. HEART: Regular rate. LUNGS: Show diminished breath sounds at the base. ABDOMEN: Soft, nontender to palpation without rebound or guarding. EXTREMITIES: Negative for clubbing, cyanosis. Trace edema. DERMATOLOGIC: No rashes. MUSCULOSKELETAL: No joint effusion. NEUROLOGIC: No change in exam. MEDICATIONS: Have been reviewed. LABORATORY DATA: Has been reviewed. The patient has sodium 140, potassium 3.8, BUN is 69, creatinin e 2.53, phosphorus 5.7. White count 10.0, hemoglobin 10.6, platelet count is 354. ASSESSMENT AND PLAN: 1. Acute hypoxic respiratory failure secondary to congestive heart failure exacerbation, COPD exacer bation, pneumonia. The patient is clinically improving. Continue antibiotic therapy, continue nebul izers. Adjust diuretics. Follow up with pulmonary. 2. Sepsis secondary to tracheobronchitis, possible pneumonia. The patient is completing antibiotic course. 3. Acute systolic heart failure. The patient is near euvolemic. Will hold diuretic therapy in the setting of worsening renal function. Monitor closely. 4. Nonoliguric acute kidney injury on top of chronic kidney disease. Etiology is secondary to hemod ynamics, cardiorenal syndrome. Renal function has further declined. Will hold diuretic therapy in o rder to enable fluid to mobilize. Will monitor closely. 5. Hyperkalemia, resolved. 6. Anemia. Continue to monitor hemoglobin and hematocrit levels. 7. Mineral bone disorder, monitor calcium and phosphorus levels. 8. Acute encephalopathy, etiology toxic metabolic with underlying dementia. Continue to monitor. 9. Anxiety disorder. Continue Seroquel. Psych consult has been placed. 10. Coronary artery disease status post coronary artery bypass graft. Continue medical management. 11. Sinus arrhythmia, status post ICD placement. 12. Peripheral vascular disease with right lung irritation. Continue to monitor. 13. Hypertension. Continue current blood pressure regimen. 14. Dyslipidemia. Continue statin therapy. 15. History of throat cancer, status post tracheostomy with residual open ostium. 16. GI and DVT prophylaxis. 17. Alkalosis. Continue diuretic therapy. Continue to monitor. Dictated By: RICHARD SMITH/GUS Conf#: [id number] DID#: [id number] CC: RICHARD CASTLE DO;*EndCC*
--- NOTE | 2018-10-10 10:39 | NUR ---
CM notes: EULA left a message for Bert to f/u on bed availability, CM will f/u. Carmen Roy RNCM
--- NOTE | 2018-10-10 11:29 | CONS ---
Assessment/Plan Assessment/Plan Hospital Course (Demo Recall) Patient is awake, looks comfortable, no fevers overnight Microbiology: Blood cultures negative nares swab positive MRSA Chest x-ray revealed interstitial infiltrates/edema moderately improved. Mild improvement in bibasilar alveolar infiltrates Antimicrobials:Doxycycline Physical examination: This is a fragile well-developed elderly man who is awake in no distress. Head atraumatic normocephalic neck is supple patient has a dressing over his trachea chest rise symmetrical breath sounds with bilateral scattered rhonchi. Heart: S1-S2. Abdomen soft bowel sounds present. Extremities with left lower extremity resolved erythema, patient is right below- knee amputation Assessment: 1. Acute hypoxemic respiratory failure secondary to fluid overload COPD exacerbation, possible pneumonia 2. Left lower extremity cellulitis 3. MRSA nares consolidation 4. History of peripheral vascular disease status post right BKA 5. Acute on chronic kidney disease 6. Dementia 7. 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 Plan: Remains unchanged, chest x-ray noted, continue present care, DC doxycycline Consultation Date/Type/Reason Admit Date/Time Oct 04, 2018 at 01:12 Initial Consult Date 10/04/18 Type of Consult id Requesting Provider: RICHARD CASTLE DO Date/Time of Note DATE: 10/10/18 TIME: 11:28 Exam/Review of Systems Exam Vitals Vital Signs Date Temp Pulse Resp B/P (MAP) Pulse Ox O2 O2 Flow FiO2 Time Delivery Rate 10/10/18 97.8 70 18 105/53 97 Nasal 11:23 (70) Cannula 10/10/18 2.0 07:29 10/06/18 30 20:00 Intake and Output 10/09/18 10/09/18 10/10/18 1414:59 22:59 06:59 IntakeIntake Total 50 ml 750 ml BalanceBalance 50 ml 750 ml Results Result Diagram: 10/10/182 10/10/182 Results 24hrs Laboratory Tests Test 10/10/18 04:42 White Blood Count 10.0 Red Blood Count 3.78 L Hemoglobin 10.6 L Hematocrit 32.3 L Mean Corpuscular Volume 85.4 Mean Corpuscular Hemoglobin 28.0 L Mean Corpuscular Hemoglobin Concent 32.8 Red Cell Distribution Width 17.7 H Platelet Count 354 Mean Platelet Volume 10.4 Immature Granulocytes % 0.500 H Neutrophils % 67.6 Lymphocytes % 20.3 Monocytes % 8.8 Eosinophils % 2.1 Basophils % 0.7 Nucleated Red Blood Cells % 0.0 Immature Granulocytes # 0.050 H Neutrophils # 6.8 Lymphocytes # 2.0 Monocytes # 0.9 Eosinophils # 0.2 Basophils # 0.1 Nucleated Red Blood Cells # 0.0 Sodium Level 140 Potassium Level 3.8 Chloride Level 96 L Carbon Dioxide Level 36 H Anion Gap 8 Blood Urea Nitrogen 69 H Creatinine 2.43 H Est Glomerular Filtrat Rate mL/min Glucose Level 104 Calcium Level 9.7 Phosphorus Level 5.7 #H Magnesium Level 2.1 Medications Medication Current Medications Atorvastatin Calcium (Lipitor) 40 mg HS PO Last administered on 10/09/18 20:35; Admin Dose 40 MG; Start 10/04/18 at 21:00 Metoprolol Succinate (Toprol Xl) 50 mg DAILY PO Last administered on 10/10/18 08:57; Admin Dose 50 MG; Start 10/04/18 at 09:00 Albuterol/ Ipratropium (Duoneb) 3 ml Q4H RESP THERAPY PRN HHN sob Last administered on 10/08/18 15:22; Admin Dose 3 ML; Start 10/04/18 at 08:00 Famotidine (Pepcid) 20 mg DAILY PO Last administered on 10/10/18 08:56; Admin Dose 20 MG; Start 10/05/18 at 09:00 Apixaban (Eliquis) 2.5 mg BID PO Last administered on 10/10/18 08:56; Admin Dose 2.5 MG; Start 10/05/18 at 10:00 Mupirocin (Bactroban) 1 applic BID TOP Last administered on 10/10/18 08:56; Admin Dose 1 APPLIC; Start 10/05/18 at 12:30 Docusate Sodium (Colace) 100 mg BID PO Last administered on 10/09/18 20:35; Admin Dose 100 MG; Start 10/05/18 at 15:00 Polyethylene Glycol (Miralax) 17 gm DAILY PO Last administered on 10/09/18 09:56; Admin Dose 17 GM; Start 10/05/18 at 15:00 Doxycycline Hyclate (Vibramycin) 100 mg BID PO Last administered on 10/10/18 08:56; Admin Dose 100 MG; Start 10/05/18 at 15:30 Quetiapine Fumarate (Seroquel) 25 mg BID PO Last administered on 10/10/18at 08:56; Admin Dose 25 MG; Start 10/06/18 at 09:00 Acetaminophen (Tylenol Tab) 1,000 mg Q6H PRN PO MILD PAIN(1-3)OR ELEVATED TEMP Last administered on 10/09/18at 23:38; Admin Dose 1,000 MG; Start 10/06/18 at 22:00 Metolazone (Zaroxolyn) 5 mg DAILY@0530 PO Last administered on 10/10/18at 05:45; Admin Dose 5 MG; Start 10/07/18 at 17:30; Status Hold Furosemide (Lasix) 40 mg BID DIURETICS IV Last administered on 10/10/18at 06:22; Admin Dose 40 MG; Start 10/07/18 at 18:00; Status Hold Haloperidol (Haldol) 2 mg Q4H PRN IM FOR SEVERE AGITATION Last administered on 10/08/18at 07:58; Admin Dose 2 MG; Start 10/08/18 at 02:00 EFRA BORDEN NP Oct 10, 2018 11:29
--- NOTE | 2018-10-10 16:00 | NUR ---
EULA notes: Per Bert patient no longer meets criteria for [place] admission, CM spoke with patients nephew (listed on FS) who stated patient lives alone and would like a SNF closer to his home which is in [place]: [facility] does not have beds at this time [facility] -faxed clinicals, [facility]-faxed clinicals [facility]-clinicals faxed DEB Duarte
--- NOTE | 2018-10-10 17:09 | CONS ---
Consult Date/Type/Reason Admit Date/Time Oct 04, 2018 at 01:12 Initial Consult Date 10/04/18 Type of Consultation: cv Requesting Provider: RICHARD SHIRLEY DO Date/Time of Note DATE: 10/10/18 TIME: 17:08 Subjective Cardiology follow-up progress note Subjective: Case discussed with staff. Telemetry was reviewed. Patient remains in ventricular paced rhythm. Discussed with Dr. Shirley Patient denies any cp or sob to me but appears to be less hypoxemic and is off high flow oxygen He is asking when he will be going home Objective: General: disheveled looking gentleman. in no acute distress HEENT: NC/AT. pupils are equal. round. NECK: Status post previous trach. no stridor. CV: RRR. systolic murmur; no gallop or rubs. PULM:+ mild rhonchi. GI: SOFT, NT, ND, no rebound or guarding Extremity: Less LE edema. Status post right AKA neuro: awake and alert. Oriented to person and place Psych: Calm now rectal: deferred : normal CXR Congestive heart failure with pulmonary edema. Chest x-ray 10/05/2018 shows: Interstitial infiltrate/edema are moderately improved. Mild improvement in bibasilar alveolar infiltrates. Minimal bilateral pleural effusions are unchanged. Chest x-ray 10/10/2018 shows: 1. Slightly improved pulmonary edema. 2. No other change from the 10/08/2018 chest radiograph. Objective Vitals Vital Signs Date Temp Pulse Resp B/P (MAP) Pulse Ox O2 O2 Flow FiO2 Time Delivery Rate 10/10/18 98 Room Air 16:33 10/10/18 97.8 70 18 150/67 15:24 (94) 10/10/18 2.0 12:04 10/06/18 30 20:00 Intake and Output 10/09/18 10/09/18 10/10/18 1515:00 23:00 07:00 IntakeIntake Total 50 ml 750 ml 400 ml BalanceBalance 50 ml 750 ml 400 ml Results/Medications Result Diagram: 10/10/18 0442 10/10/18441 Results 24 hrs Laboratory Tests Test 10/10/18 04:42 White Blood Count 10.0 Red Blood Count 3.78 L Hemoglobin 10.6 L Hematocrit 32.3 L Mean Corpuscular Volume 85.4 Mean Corpuscular Hemoglobin 28.0 L Mean Corpuscular Hemoglobin Concent 32.8 Red Cell Distribution Width 17.7 H Platelet Count 354 Mean Platelet Volume 10.4 Immature Granulocytes % 0.500 H Neutrophils % 67.6 Lymphocytes % 20.3 Monocytes % 8.8 Eosinophils % 2.1 Basophils % 0.7 Nucleated Red Blood Cells % 0.0 Immature Granulocytes # 0.050 H Neutrophils # 6.8 Lymphocytes # 2.0 Monocytes # 0.9 Eosinophils # 0.2 Basophils # 0.1 Nucleated Red Blood Cells # 0.0 Sodium Level 140 Potassium Level 3.8 Chloride Level 96 L Carbon Dioxide Level 36 H Anion Gap 8 Blood Urea Nitrogen 69 H Creatinine 2.43 H Est Glomerular Filtrat Rate mL/min Glucose Level 104 Calcium Level 9.7 Phosphorus Level 5.7 #H Magnesium Level 2.1 Home Meds Active Scripts Ibuprofen* (Motrin*) 400 Mg Tab, 400 MG PO Q8, #30 TAB Prov:SAFIA LUGO MD 12/12/17 Hydrocodone/Acetaminophen (Warren 5-325 Tablet) 1 Each Tablet, 1 TAB PO Q6H PRN for PAIN, #20 TAB Prov:SAFIA LUGO MD 12/12/17 Reported Medications Aspirin (Low Dose Aspirin) 81 Mg Tablet.dr, 81 MG PO DAILY, #30 TAB 12/01/16 Metoprolol Succinate* (Toprol XL*) 50 Mg Tab.er.24h, 50 MG PO DAILY, TAB 05/13/15 Losartan Potassium* (Losartan Potassium*) 50 Mg Tablet, 50 MG PO DAILY, TAB 05/13/15 Atorvastatin* (Atorvastatin*) 40 Mg Tablet, 40 MG PO HS, TAB 05/13/15 Bumetanide* (Bumex*) 2 Mg Tab, 2 MG PO OD 11/15/12 Medications Current Medications Atorvastatin Calcium (Lipitor) 40 mg HS PO Last administered on 10/09/18at 20:35; Admin Dose 40 MG; Start 10/04/18 at 21:00 Metoprolol Succinate (Toprol Xl) 50 mg DAILY PO Last administered on 10/10/18at 08:57; Admin Dose 50 MG; Start 10/04/18 at 09:00 Albuterol/ Ipratropium (Duoneb) 3 ml Q4H RESP THERAPY PRN HHN sob Last administered on 10/08/18 15:22; Admin Dose 3 ML; Start 10/04/18 at 08:00 Famotidine (Pepcid) 20 mg DAILY PO Last administered on 10/10/18 08:56; Admin Dose 20 MG; Start 10/05/18 at 09:00 Apixaban (Eliquis) 2.5 mg BID PO Last administered on 10/10/18 08:56; Admin Dose 2.5 MG; Start 10/05/18 at 10:00 Mupirocin (Bactroban) 1 applic BID TOP Last administered on 10/10/18 08:56; Admin Dose 1 APPLIC; Start 10/05/18 at 12:30 Docusate Sodium (Colace) 100 mg BID PO Last administered on 10/09/18 20:35; Admin Dose 100 MG; Start 10/05/18 at 15:00 Polyethylene Glycol (Miralax) 17 gm DAILY PO Last administered on 10/09/18 09:56; Admin Dose 17 GM; Start 10/05/18 at 15:00 Quetiapine Fumarate (Seroquel) 25 mg BID PO Last administered on 10/10/18 08:56; Admin Dose 25 MG; Start 10/06/18 at 09:00 Acetaminophen (Tylenol Tab) 1,000 mg Q6H PRN PO MILD PAIN(1-3)OR ELEVATED TEMP Last administered on 10/09/18 23:38; Admin Dose 1,000 MG; Start 10/06/18 at 22:00 Metolazone (Zaroxolyn) 5 mg DAILY@0530 PO Last administered on 10/10/18 05:45; Admin Dose 5 MG; Start 10/07/18 at 17:30; Status Hold Furosemide (Lasix) 40 mg BID DIURETICS IV Last administered on 10/10/18 06:22; Admin Dose 40 MG; Start 10/07/18 at 18:00; Status Hold Haloperidol (Haldol) 2 mg Q4H PRN IM FOR SEVERE AGITATION Last administered on 10/08/18 07:58; Admin Dose 2 MG; Start 10/08/18 at 02:00 Assessment/Plan Hospital Course (Demo Recall) Acute hypoxic hypercapnic respiratory failure Congestive heart failure acute on chronic 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 diuresis as tolerated. Currently diuretics on hold due to acute renal failure Continue respiratory care oxygen supplement. BiPAP /high flow as needed cont eliquis Not on TAYLOR inhibitor due to his renal failure. We will resume his ARB once okay from renal standpoint Monitor I's and O's. cont toprol Thank. you for his referral we will continue to monitor with you. SHARONDA BRICENO MD [facility] SHARONDA BRICENO MD Oct 10, 2018 17:09
--- NOTE | 2018-10-10 18:18 | NUR ---
END OF SHIFT A/OX2, PERIODS CONFUSION, DENIES PAIN, ROOM AIR, DOES NOT DEMONSTRATE USE OF CALL LIGHT, MAX DEPENDENT FOR CARE, CLOSE TO STATION FOR CLOSE MONITORING, BED ALARM ENGAGED, D/C PLANNING FOR SNF
[2018-10-10] MEDS: ACETAMINOPHEN 500 MG TAB PO PRN (20:32)
[2018-10-10] MEDS: ATORVASTATIN 40 MG TAB PO SCH (20:34)
[2018-10-10] MEDS: HALOPERIDOL 5 MG INJ IM PRN (21:18)
[2018-10-10] MEDS ORDERED: HALOPERIDOL 5 MG INJ IM ONE (22:00)
[2018-10-11] VITALS (9 sets, daily range): BP systolic 108–153; BP diastolic 53–70; PULSE 69–75; RESP 18
--- NOTE | 2018-10-11 06:11 | NUR ---
EOSS: PATIENT WAS ABLE TO SIT ON A CHAIR WITH ASSIST. COHERENT BUT VERY FORGETFUL BUT ONCE BROUGHT BACK TO LAY ON HIS BED, BECAME VERY AGITATED AND WANTED TO GO HOME, TRIED KICKING STAFF, ASKED WHY HE WAS DOING IT, HE SAID, ' I DON'T KNOW". HALDOL WAS GIVEN AND ANOTHER DOSE GIVEN AFTER TALKING WITH MD FOOD AND BEVERAGE MANAGER ( ), THIS AFFORDED RELIEF PATIENT WAS ABLE TO REST FOR THE WHOLE NIGHT. NSR ON THE MONITOR. BED ALARM/CHAIR ALARM .
[2018-10-11] MEDS: FAMOTIDINE 20 MG TAB PO SCH (08:19)
[2018-10-11] MEDS: DOCUSATE SODIUM 100 MG CAP PO SCH ×2 (08:19→21:57)
[2018-10-11] MEDS: APIXABAN 5 MG TABLET PO SCH ×2 (08:20→21:56)
[2018-10-11] MEDS: MUPIROCIN 2% 22 GM OINT TOP SCH ×2 (08:20→21:57)
[2018-10-11] MEDS: METOPROLOL (XL) 50 MG TAB PO SCH (08:20)
[2018-10-11] MEDS: POLYETHYLENE GLYCOL 17 GM PACKET PO SCH (08:20)
[2018-10-11] MEDS: QUETIAPINE 25 MG TAB PO SCH ×2 (08:20→21:57)
--- NOTE | 2018-10-11 08:27 | PN ---
DATE: 10/11/2018 SUBJECTIVE: The patient is stable, no events overnight. The patient continues to have episodes of a gitation. No other events noted. OBJECTIVE: VITAL SIGNS: Blood pressure is 153/70, respirations 18, pulse 70, temperature 98.0. HEENT: Head is normocephalic. NECK: Supple. HEART: Regular rate. LUNGS: Show diminished breath sounds at the base. ABDOMEN: Soft, nontender to palpation. No rebound or guarding. EXTREMITIES: Negative for clubbing, cyanosis, no edema. The patient has a right BKA. DERMATOLOGIC: No rashes. NEUROLOGIC: No focal deficits. LABORATORY DATA: Shows sodium 140, potassium 4.1, chloride 95, bicarbonate 35, BUN 81, creatinine 2. 61 phosphorus 5.0. White count 10.7, hemoglobin 11.5, platelet count is 403. ASSESSMENT AND PLAN: 1. Acute hypoxemic respiratory failure secondary to congestive heart failure exacerbation, chronic o bstructive pulmonary disease exacerbation, pneumonia. The patient is clinically improving. The sim ent is completing antibiotic course. Continue nebulizers. 2. Sepsis secondary to tracheal bronchitis. The patient is completing antibiotic course. Continue to monitor. 3. Acute systolic heart failure. The patient appears compensated. Diuretic therapy has been on hol d due to worsening renal function. Continue to monitor. 4. Nonoliguric acute kidney injury secondary to hemodynamics, cardiorenal syndrome. The patient rem ains in injury phase of acute kidney injury as creatinine continues to increase. Continue to hold di uretic therapy and monitor closely. 5. Hyperkalemia, resolved. 6. Anemia. Monitor hemoglobin and hematocrit levels. 7. Mineral bone disorder, monitor calcium and phosphorus levels. 8. Acute encephalopathy, etiology is toxic metabolic. Continue to monitor. 9. Anxiety disorder. Continue Seroquel and Haldol. 10. Coronary artery disease, status post coronary artery bypass graft, continue medical management. 11. Arrhythmia, status post ICD placement. 12. Peripheral vascular disease status post BKA. 13. Hypertension. Continue current blood pressure regimen. 14. Dyslipidemia. Continue statin therapy. 15. History of throat cancer, status post tracheostomy with residual open ostium. 16. Gastrointestinal and deep vein thrombosis prophylaxis. 17. Alkalosis, likely due to acute kidney injury and diuretic therapy. Continue to monitor. Dictated By: RICHARD SMITH/GUS Conf#: [id number] DID#: [id number] CC: RICHARD CASTLE DO;*End*
--- NOTE | 2018-10-11 11:18 | CONS ---
Assessment/Plan Assessment/Plan Hospital Course (Demo Recall) All noted, no acute events, awake, weak, confused, no fevers Microbiology: Blood cultures negative nares swab positive MRSA Chest x-ray revealed interstitial infiltrates/edema moderately improved. Mild improvement in bibasilar alveolar infiltrates Antimicrobials:Doxycycline Physical examination: This is a fragile well-developed elderly man who is awake in no distress. Head atraumatic normocephalic neck is supple patient has a dressing over his trachea chest rise symmetrical breath sounds with bilateral scattered rhonchi. Heart: S1-S2. Abdomen soft bowel sounds present. Extremities with left lower extremity resolved erythema, patient is right below- knee amputation Assessment: 1. Acute hypoxemic respiratory failure secondary to fluid overload COPD exacerbation, possible pneumonia==> completed abx 2. Left lower extremity cellulitis 3. MRSA nares consolidation 4. History of peripheral vascular disease status post right BKA 5. Acute on chronic kidney disease 6. Dementia 7. 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 Plan: Remains stable, completed abx, continue present care, aspiration precautions, repeat MRSA swab Consultation Date/Type/Reason Admit Date/Time Oct 04, 2018 at 01:12 Initial Consult Date 10/04/18 Type of Consult id Requesting Provider: RICHARD CASTLE DO Date/Time of Note DATE: 10/11/18 TIME: 11:15 Exam/Review of Systems Exam Vitals Vital Signs Date Temp Pulse Resp B/P (MAP) Pulse Ox O2 O2 Flow FiO2 Time Delivery Rate 10/11/18 70 08:01 10/11/18 98.0 18 153/70 99 07:40 (97) 10/11/18 Room Air 04:00 10/10/18 2.0 12:04 Intake and Output 10/10/18 10/10/18 10/11/18 1414:59 22:59 06:59 IntakeIntake Total 400 ml 800 ml 120 ml BalanceBalance 400 ml 800 ml 120 ml Results Result Diagram: 10/11/18 0609 10/11/18 0609 Results 24hrs Laboratory Tests Test 10/11/18 06:09 White Blood Count 10.7 Red Blood Count 4.24 L Hemoglobin 11.5 L Hematocrit 36.5 L Mean Corpuscular Volume 86.1 Mean Corpuscular Hemoglobin 27.1 L Mean Corpuscular Hemoglobin Concent 31.5 L Red Cell Distribution Width 17.3 H Platelet Count 403 Mean Platelet Volume 9.9 Immature Granulocytes % 0.400 Neutrophils % 70.0 Lymphocytes % 19.2 Monocytes % 8.2 Eosinophils % 1.4 Basophils % 0.8 Nucleated Red Blood Cells % 0.0 Immature Granulocytes # 0.040 H Neutrophils # 7.5 Lymphocytes # 2.1 Monocytes # 0.9 Eosinophils # 0.2 Basophils # 0.1 Nucleated Red Blood Cells # 0.0 Sodium Level 140 Potassium Level 4.1 Chloride Level 95 L Carbon Dioxide Level 35 H Anion Gap 10 Blood Urea Nitrogen 81 H Creatinine 2.61 H Est Glomerular Filtrat Rate mL/min Glucose Level 106 Calcium Level 10.0 Phosphorus Level 5.0 H Magnesium Level 2.2 Medications Medication Current Medications Atorvastatin Calcium (Lipitor) 40 mg HS PO Last administered on 10/10/18 20:34; Admin Dose 40 MG; Start 10/04/18 at 21:00 Metoprolol Succinate (Toprol Xl) 50 mg DAILY PO Last administered on 10/11/18 08:20; Admin Dose 50 MG; Start 10/04/18 at 09:00 Albuterol/ Ipratropium (Duoneb) 3 ml Q4H RESP THERAPY PRN HHN sob Last administered on 10/08/18 15:22; Admin Dose 3 ML; Start 10/04/18 at 08:00 Famotidine (Pepcid) 20 mg DAILY PO Last administered on 10/11/18 08:19; Admin Dose 20 MG; Start 10/05/18 at 09:00 Apixaban (Eliquis) 2.5 mg BID PO Last administered on 10/11/18 08:20; Admin Dose 2.5 MG; Start 10/05/18 at 10:00 Mupirocin (Bactroban) 1 applic BID TOP Last administered on 10/11/18 08:20; Admin Dose 1 APPLIC; Start 10/05/18 at 12:30 Docusate Sodium (Colace) 100 mg BID PO Last administered on 10/11/18 08:19; Admin Dose 100 MG; Start 10/05/18 at 15:00 Polyethylene Glycol (Miralax) 17 gm DAILY PO Last administered on 10/11/18 08:20; Admin Dose 17 GM; Start 10/05/18 at 15:00 Quetiapine Fumarate (Seroquel) 25 mg BID PO Last administered on 10/11/18 08:20; Admin Dose 25 MG; Start 10/06/18 at 09:00 Acetaminophen (Tylenol Tab) 1,000 mg Q6H PRN PO MILD PAIN(1-3)OR ELEVATED TEMP Last administered on 10/10/18at 20:32; Admin Dose 1,000 MG; Start 10/06/18 at 22:00 Metolazone (Zaroxolyn) 5 mg DAILY@0530 PO Last administered on 10/10/18at 05:45; Admin Dose 5 MG; Start 10/07/18 at 17:30; Status Hold Furosemide (Lasix) 40 mg BID DIURETICS IV Last administered on 10/10/18 06:22; Admin Dose 40 MG; Start 10/07/18 at 18:00; Status Hold Haloperidol (Haldol) 2 mg Q4H PRN IM FOR SEVERE AGITATION Last administered on 10/10/18 21:18; Admin Dose 2 MG; Start 10/08/18 at 02:00 EFRA BORDEN NP Oct 11, 2018 11:18
--- NOTE | 2018-10-11 14:24 | NUR ---
CM notes: Patient was accepted back to [facility] room 367A per Fernanda , CM communicated with patients nephew Jamaal and daughter Lizy for SNF placement at [facility] in 1-2 more days per . orders they are both aware and in agreement with the plan. Carmen Roy RNCM
--- NOTE | 2018-10-11 16:18 | CONS ---
Consult Date/Type/Reason Admit Date/Time Oct 04, 2018 at 01:12 Initial Consult Date 10/04/18 Type of Consultation: cv Requesting Provider: RICHARD CASTLE DO Date/Time of Note DATE: 10/11/18 TIME: 16:17 Subjective Cardiology follow-up progress note Subjective: Case discussed with staff. Telemetry was reviewed. Patient remains in ventricular paced rhythm. Patient denies any cp or sob to me but appears to be less hypoxemic and is off high flow oxygen He is asking when he will be going home Objective: General: disheveled looking gentleman. in no acute distress HEENT: NC/AT. pupils are equal. round. NECK: Status post previous trach. no stridor. CV: RRR. systolic murmur; no gallop or rubs. PULM:+ mild rhonchi. GI: SOFT, NT, ND, no rebound or guarding Extremity: Less LE edema. Status post right AKA neuro: awake and alert. Oriented to person and place Psych: Calm now rectal: deferred : normal CXR Congestive heart failure with pulmonary edema. Chest x-ray 10/05/2018 shows: Interstitial infiltrate/edema are moderately improved. Mild improvement in bibasilar alveolar infiltrates. Minimal bilateral pleural effusions are unchanged. Chest x-ray 10/10/2018 shows: 1. Slightly improved pulmonary edema. 2. No other change from the 10/08/2018 chest radiograph. Objective Vitals Vital Signs Date Temp Pulse Resp B/P (MAP) Pulse Ox O2 O2 Flow FiO2 Time Delivery Rate 10/11/18 98.0 70 18 139/64 98 16:01 (89) 10/11/18 Room Air 04:00 10/10/18 2.0 12:04 Intake and Output 10/10/18 10/10/18 10/11/18 1515:00 23:00 07:00 IntakeIntake Total 800 ml 120 ml BalanceBalance 800 ml 120 ml Results/Medications Result Diagram: 10/11/18 0609 10/11/18 0609 Results 24 hrs Laboratory Tests Test 10/11/18 06:09 White Blood Count 10.7 Red Blood Count 4.24 L Hemoglobin 11.5 L Hematocrit 36.5 L Mean Corpuscular Volume 86.1 Mean Corpuscular Hemoglobin 27.1 L Mean Corpuscular Hemoglobin Concent 31.5 L Red Cell Distribution Width 17.3 H Platelet Count 403 Mean Platelet Volume 9.9 Immature Granulocytes % 0.400 Neutrophils % 70.0 Lymphocytes % 19.2 Monocytes % 8.2 Eosinophils % 1.4 Basophils % 0.8 Nucleated Red Blood Cells % 0.0 Immature Granulocytes # 0.040 H Neutrophils # 7.5 Lymphocytes # 2.1 Monocytes # 0.9 Eosinophils # 0.2 Basophils # 0.1 Nucleated Red Blood Cells # 0.0 Sodium Level 140 Potassium Level 4.1 Chloride Level 95 L Carbon Dioxide Level 35 H Anion Gap 10 Blood Urea Nitrogen 81 H Creatinine 2.61 H Est Glomerular Filtrat Rate mL/min Glucose Level 106 Calcium Level 10.0 Phosphorus Level 5.0 H Magnesium Level 2.2 Home Meds Active Scripts Ibuprofen* (Motrin*) 400 Mg Tab, 400 MG PO Q8, #30 TAB Prov:SAFIA LUGO MD 12/12/17 Hydrocodone/Acetaminophen ([place] 5-325 Tablet) 1 Each Tablet, 1 TAB PO Q6H PRN for PAIN, #20 TAB Prov:SAFIA LUGO MD 12/12/17 Reported Medications Aspirin (Low Dose Aspirin) 81 Mg Tablet.dr, 81 MG PO DAILY, #30 TAB 12/01/16 Metoprolol Succinate* (Toprol XL*) 50 Mg Tab.er.24h, 50 MG PO DAILY, TAB 05/13/15 Losartan Potassium* (Losartan Potassium*) 50 Mg Tablet, 50 MG PO DAILY, TAB 05/13/15 Atorvastatin* (Atorvastatin*) 40 Mg Tablet, 40 MG PO HS, TAB 05/13/15 Bumetanide* (Bumex*) 2 Mg Tab, 2 MG PO OD 11/15/12 Medications Current Medications Atorvastatin Calcium (Lipitor) 40 mg HS PO Last administered on 10/10/18at 20:34; Admin Dose 40 MG; Start 10/04/18 at 21:00 Metoprolol Succinate (Toprol Xl) 50 mg DAILY PO Last administered on 10/11/18at 08:20; Admin Dose 50 MG; Start 10/04/18 at 09:00 Albuterol/ Ipratropium (Duoneb) 3 ml Q4H RESP THERAPY PRN HHN sob Last administered on 10/08/18at 15:22; Admin Dose 3 ML; Start 10/04/18 at 08:00 Famotidine (Pepcid) 20 mg DAILY PO Last administered on 10/11/18 08:19; Admin Dose 20 MG; Start 10/05/18 at 09:00 Apixaban (Eliquis) 2.5 mg BID PO Last administered on 10/11/18 08:20; Admin Dose 2.5 MG; Start 10/05/18 at 10:00 Mupirocin (Bactroban) 1 applic BID TOP Last administered on 10/11/18 08:20; Admin Dose 1 APPLIC; Start 10/05/18 at 12:30 Docusate Sodium (Colace) 100 mg BID PO Last administered on 10/11/18 08:19; Admin Dose 100 MG; Start 10/05/18 at 15:00 Polyethylene Glycol (Miralax) 17 gm DAILY PO Last administered on 10/11/18 08:20; Admin Dose 17 GM; Start 10/05/18 at 15:00 Quetiapine Fumarate (Seroquel) 25 mg BID PO Last administered on 10/11/18 08:20; Admin Dose 25 MG; Start 10/06/18 at 09:00 Acetaminophen (Tylenol Tab) 1,000 mg Q6H PRN PO MILD PAIN(1-3)OR ELEVATED TEMP Last administered on 10/10/18 20:32; Admin Dose 1,000 MG; Start 10/06/18 at 22:00 Metolazone (Zaroxolyn) 5 mg DAILY@0530 PO Last administered on 10/10/18 05:45; Admin Dose 5 MG; Start 10/07/18 at 17:30; Status Hold Furosemide (Lasix) 40 mg BID DIURETICS IV Last administered on 10/10/18 06:22; Admin Dose 40 MG; Start 10/07/18 at 18:00; Status Hold Haloperidol (Haldol) 2 mg Q4H PRN IM FOR SEVERE AGITATION Last administered on 10/10/18 21:18; Admin Dose 2 MG; Start 10/08/18 at 02:00 Assessment/Plan Hospital Course (Demo Recall) Acute hypoxic hypercapnic respiratory failure Congestive heart failure acute on chronic 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 diuresis as tolerated. Currently diuretics on hold due to acute renal failure Continue respiratory care oxygen supplement. BiPAP /high flow as needed cont eliquis Not on TAYLOR inhibitor due to his renal failure. We will resume his ARB once okay from renal standpoint Monitor I's and O's. cont toprol Thank. you for his referral we will continue to monitor with you. SHARONDA BRICENO MD [facility] SHARONDA BRICENO MD Oct 11, 2018 16:18
[2018-10-11] MEDS: ACETAMINOPHEN 500 MG TAB PO PRN (21:57)
[2018-10-11] MEDS: ATORVASTATIN 40 MG TAB PO SCH (21:57)
[2018-10-12] VITALS (10 sets, daily range): BP systolic 103–124; BP diastolic 50–62; PULSE 69–77; RESP 18–19
--- NOTE | 2018-10-12 06:56 | NUR ---
EOSS: Patient slept well last night. Morning care done for urine incontinence. All needs attended to. No fall or injury noted or reported. Updated Dr. Shirley with patients condition. Possible d/c today to [facility]. Endorsed
--- NOTE | 2018-10-12 09:01 | CONS ---
Consult Date/Type/Reason Admit Date/Time Oct 04, 2018 at 01:12 Initial Consult Date 10/04/18 Type of Consultation: cv Requesting Provider: RICHARD SHIRLEY DO Date/Time of Note DATE: 10/12/18 TIME: 08:56 Subjective Cardiology follow-up progress note Subjective: Case discussed with staff. Telemetry was reviewed. Patient remains in ventricular paced rhythm. Patient denies any cp or sob to me but appears to be less hypoxemic still with cough d/w Dr Shirley Objective: General: disheveled looking gentleman. in no acute distress HEENT: NC/AT. pupils are equal. round. NECK: Status post previous trach. no stridor. CV: RRR. systolic murmur; no gallop or rubs. PULM:+ mild rhonchi. GI: SOFT, NT, ND, no rebound or guarding Extremity: Less LE edema. Status post right AKA neuro: awake and alert. Oriented to person and place Psych: Calm now rectal: deferred : normal Chest x-ray 10/05/2018 shows: Interstitial infiltrate/edema are moderately improved. Mild improvement in bibasilar alveolar infiltrates. Minimal bilateral pleural effusions are unchanged. Chest x-ray 10/10/2018 shows: 1. Slightly improved pulmonary edema. 2. No other change from the 10/08/2018 chest radiograph. Objective Vitals Vital Signs Date Temp Pulse Resp B/P (MAP) Pulse Ox O2 O2 Flow FiO2 Time Delivery Rate 10/12/18 70 08:13 10/12/18 97.8 19 111/54 96 07:53 (73) 10/12/18 Room Air 03:58 10/12/18 2.0 28 02:47 Intake and Output 10/11/18 10/11/18 10/12/18 1515:00 23:00 07:00 IntakeIntake Total 240 ml 580 ml 110 ml BalanceBalance 240 ml 580 ml 110 ml Results/Medications Result Diagram: 10/12/18 0515 10/12/18 0515 Results 24 hrs Laboratory Tests Test 10/12/18 05:15 White Blood Count 7.9 # Red Blood Count 4.14 L Hemoglobin 11.4 L Hematocrit 35.8 L Mean Corpuscular Volume 86.5 Mean Corpuscular Hemoglobin 27.5 L Mean Corpuscular Hemoglobin Concent 31.8 L Red Cell Distribution Width 17.7 H Platelet Count 253 # Mean Platelet Volume 11.9 #H Immature Granulocytes % 0.400 Neutrophils % 60.5 Lymphocytes % 26.7 Monocytes % 8.9 Eosinophils % 2.2 Basophils % 1.3 Nucleated Red Blood Cells % 0.0 Immature Granulocytes # 0.030 Neutrophils # 4.8 Lymphocytes # 2.1 Monocytes # 0.7 Eosinophils # 0.2 Basophils # 0.1 Nucleated Red Blood Cells # 0.0 Sodium Level 140 Potassium Level 4.4 Chloride Level 95 L Carbon Dioxide Level 32 H Anion Gap 13 Blood Urea Nitrogen 92 H Creatinine 2.60 H Est Glomerular Filtrat Rate mL/min Glucose Level 85 Calcium Level 9.6 Phosphorus Level 5.7 H Magnesium Level 2.3 Home Meds Active Scripts Ibuprofen* (Motrin*) 400 Mg Tab, 400 MG PO Q8, #30 TAB Prov:SAFIA LUGO MD 12/12/17 Hydrocodone/Acetaminophen ([place] 5-325 Tablet) 1 Each Tablet, 1 TAB PO Q6H PRN for PAIN, #20 TAB Prov:SAFIA LUGO MD 12/12/17 Reported Medications Aspirin (Low Dose Aspirin) 81 Mg Tablet.dr, 81 MG PO DAILY, #30 TAB 12/01/16 Metoprolol Succinate* (Toprol XL*) 50 Mg Tab.er.24h, 50 MG PO DAILY, TAB 05/13/15 Losartan Potassium* (Losartan Potassium*) 50 Mg Tablet, 50 MG PO DAILY, TAB 05/13/15 Atorvastatin* (Atorvastatin*) 40 Mg Tablet, 40 MG PO HS, TAB 05/13/15 Bumetanide* (Bumex*) 2 Mg Tab, 2 MG PO OD 11/15/12 Medications Current Medications Atorvastatin Calcium (Lipitor) 40 mg HS PO Last administered on 10/11/18at 21:57; Admin Dose 40 MG; Start 10/04/18 at 21:00 Metoprolol Succinate (Toprol Xl) 50 mg DAILY PO Last administered on 10/11/18at 08:20; Admin Dose 50 MG; Start 10/04/18 at 09:00 Albuterol/ Ipratropium (Duoneb) 3 ml Q4H RESP THERAPY PRN HHN sob Last administered on 10/08/18at 15:22; Admin Dose 3 ML; Start 10/04/18 at 08:00 Famotidine (Pepcid) 20 mg DAILY PO Last administered on 10/11/18 08:19; Admin Dose 20 MG; Start 10/05/18 at 09:00 Apixaban (Eliquis) 2.5 mg BID PO Last administered on 10/11/18 21:56; Admin Dose 2.5 MG; Start 10/05/18 at 10:00 Mupirocin (Bactroban) 1 applic BID TOP Last administered on 10/11/18 21:57; Admin Dose 1 APPLIC; Start 10/05/18 at 12:30 Docusate Sodium (Colace) 100 mg BID PO Last administered on 10/11/18 21:57; Admin Dose 100 MG; Start 10/05/18 at 15:00 Polyethylene Glycol (Miralax) 17 gm DAILY PO Last administered on 10/11/18 08:20; Admin Dose 17 GM; Start 10/05/18 at 15:00 Quetiapine Fumarate (Seroquel) 25 mg BID PO Last administered on 10/11/18 21:57; Admin Dose 25 MG; Start 10/06/18 at 09:00 Acetaminophen (Tylenol Tab) 1,000 mg Q6H PRN PO MILD PAIN(1-3)OR ELEVATED TEMP Last administered on 10/11/18 21:57; Admin Dose 1,000 MG; Start 10/06/18 at 22:00 Metolazone (Zaroxolyn) 5 mg DAILY@0530 PO Last administered on 10/10/18 05:45; Admin Dose 5 MG; Start 10/07/18 at 17:30; Status Hold Furosemide (Lasix) 40 mg BID DIURETICS IV Last administered on 10/10/18 06:22; Admin Dose 40 MG; Start 10/07/18 at 18:00; Status Hold Haloperidol (Haldol) 2 mg Q4H PRN IM FOR SEVERE AGITATION Last administered on 10/10/18 21:18; Admin Dose 2 MG; Start 10/08/18 at 02:00 Assessment/Plan Hospital Course (Demo Recall) Acute hypoxic hypercapnic respiratory failure Congestive heart failure acute on chronic 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 diuresis as tolerated. Currently diuretics on hold due to acute renal failure Continue respiratory care oxygen supplement. BiPAP /high flow as needed cont eliquis Not on TAYLOR inhibitor due to his renal failure. We will resume his ARB once okay from renal standpoint Monitor I's and O's. cont toprol Thank. you for his referral we will continue to monitor with you. SHARONDA BRICENO MD [facility] SHARONDA BRICENO MD Oct 12, 2018 09:01
[2018-10-12] MEDS: POLYETHYLENE GLYCOL 17 GM PACKET PO SCH (09:29)
[2018-10-12] MEDS: MUPIROCIN 2% 22 GM OINT TOP SCH ×2 (09:29→22:27)
[2018-10-12] MEDS: DOCUSATE SODIUM 100 MG CAP PO SCH ×2 (09:30→22:25)
[2018-10-12] MEDS: APIXABAN 5 MG TABLET PO SCH ×2 (09:31→22:25)
[2018-10-12] MEDS: FAMOTIDINE 20 MG TAB PO SCH (09:31)
[2018-10-12] MEDS: QUETIAPINE 25 MG TAB PO SCH ×2 (09:31→22:25)
[2018-10-12] MEDS: METOPROLOL (XL) 50 MG TAB PO SCH (09:32)
--- NOTE | 2018-10-12 09:55 | DS ---
DATE OF ADMISSION: 10/04/2018 DATE OF DISCHARGE: 10/12/2018 HOSPITAL COURSE: This is an 83-year-old male with a past medical history of coronary artery disease, history of peripheral vascular disease status post right below-knee amputation, history of arrhythmi a, status post pacemaker, history of throat cancer, status post tracheostomy with open ostium, histor y of coronary artery disease, history of bypass surgery, history of ICD placement, who presented to [facility] with shortness of breath. The patient was recently admitted [facility], had a prolonged course with respiratory failure, shortness of breath. Patient was transferred to [place] and then to a skilled nurse facility. The patient was discharged home and the n shortly after he was admitted to [facility] with respiratory failure and decompen sated heart failure. The patient was initially placed on BiPAP. The patient was admitted to telemet ry. While on telemetry the patient was also noted to have tracheal bronchitis, possible pneumonia. He was seen by infectious disease and started on antibiotic therapy. The patient clinically improved with antibiotic therapy and subsequently completed his course. Additionally, patient was seen by pu lmonologist and hardboard press operator. The patient was aggressively diuresed with improvement in his heart fa ilure and respiratory failure. The patient, however, did develop acute kidney injury during hospital course, which has been monitored and patient's kidney function has stabilized in the last 24 to 48 h ours. The patient's other medical problems including anemia, mineral bone disorder, coronary artery disease, peripheral vascular disease, hypertension, dyslipidemia been stable. Currently, at this [facility], the patient will be discharged to a snf facility where he will continue physical thera py and be in continued care. At the time of discharge, the patient is stable, no acute distress. FINAL DIAGNOSES: 1. Acute hypoxemic respiratory failure. 2. Sepsis. 3. Acute heart failure. 4. Chronic obstructive pulmonary disease. 5. Nonoliguric acute kidney injury. 6. Chronic kidney disease. 7. Hyperkalemia, resolved. 8. Anemia. 9. Mineral bone disorder. 10. Coronary artery disease. 11. Arrhythmia. 12. Peripheral vascular disease. 13. Hypertension. 14. Dyslipidemia. 15. History of throat cancer, status post tracheostomy with residual open ostium. 16. Gastrointestinal and deep venous thrombosis prophylaxis. FINAL MEDICATIONS: See reconciliation list. At time of discharge, the patient is stable, in no acute distress. Dictated By: RICHARD CASTLE DO NR/NTS Conf#: [id number] DID#: [id number] CC: RICHARD CASTLE DO;*EndCC*
--- NOTE | 2018-10-12 12:39 | CONS ---
Assessment/Plan Assessment/Plan Hospital Course (Demo Recall) Awake sitting comfortably in a chair no fevers overnight WBC 7.9 no shift no bands BUN 92 creatinine 2.60 Microbiology: Blood cultures negative nares swab positive MRSA Physical examination: This is a fragile well-developed elderly man who is awake in no distress. Head atraumatic normocephalic neck is supple patient has a dressing over his trachea chest rise symmetrical breath sounds with bilateral scattered rhonchi. Heart: S1-S2. Abdomen soft bowel sounds present. Extremities with left lower extremity resolved erythema, patient is right below- knee amputation Assessment: 1. Acute hypoxemic respiratory failure secondary to fluid overload COPD exacerbation, possible pneumonia==> completed abx 2. Status post left lower extremity cellulitis 3. MRSA nares consolidation 4. History of peripheral vascular disease status post right BKA 5. Acute on chronic kidney disease 6. Dementia 7. 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 Plan: Remains stable, completed abx, continue present care, aspiration precautions, follow repeat MRSA swab Consultation Date/Type/Reason Admit Date/Time Oct 04, 2018 at 01:12 Initial Consult Date 10/04/18 Type of Consult id Requesting Provider: RICHARD CASTLE DO Date/Time of Note DATE: 10/12/18 TIME: 12:38 Exam/Review of Systems Exam Vitals Vital Signs Date Temp Pulse Resp B/P (MAP) Pulse Ox O2 O2 Flow FiO2 Time Delivery Rate 10/12/18 75 12:28 10/12/18 98.4 18 124/62 95 11:30 (82) 10/12/18 Room Air 03:58 10/12/18 2.0 28 02:47 Intake and Output 10/11/18 10/11/18 10/12/18 1515:00 23:00 07:00 IntakeIntake Total 240 ml 580 ml 110 ml BalanceBalance 240 ml 580 ml 110 ml Results Result Diagram: 10/12/18 0515 10/12/18 0515 Results 24hrs Laboratory Tests Test 10/12/18 05:15 White Blood Count 7.9 # Red Blood Count 4.14 L Hemoglobin 11.4 L Hematocrit 35.8 L Mean Corpuscular Volume 86.5 Mean Corpuscular Hemoglobin 27.5 L Mean Corpuscular Hemoglobin Concent 31.8 L Red Cell Distribution Width 17.7 H Platelet Count 253 # Mean Platelet Volume 11.9 #H Immature Granulocytes % 0.400 Neutrophils % 60.5 Lymphocytes % 26.7 Monocytes % 8.9 Eosinophils % 2.2 Basophils % 1.3 Nucleated Red Blood Cells % 0.0 Immature Granulocytes # 0.030 Neutrophils # 4.8 Lymphocytes # 2.1 Monocytes # 0.7 Eosinophils # 0.2 Basophils # 0.1 Nucleated Red Blood Cells # 0.0 Sodium Level 140 Potassium Level 4.4 Chloride Level 95 L Carbon Dioxide Level 32 H Anion Gap 13 Blood Urea Nitrogen 92 H Creatinine 2.60 H Est Glomerular Filtrat Rate mL/min Glucose Level 85 Calcium Level 9.6 Phosphorus Level 5.7 H Magnesium Level 2.3 Medications Medication Current Medications Atorvastatin Calcium (Lipitor) 40 mg HS PO Last administered on 10/11/18 21:57; Admin Dose 40 MG; Start 10/04/18 at 21:00 Metoprolol Succinate (Toprol Xl) 50 mg DAILY PO Last administered on 10/12/18 09:32; Admin Dose 50 MG; Start 10/04/18 at 09:00 Albuterol/ Ipratropium (Duoneb) 3 ml Q4H RESP THERAPY PRN HHN sob Last administered on 10/08/18 15:22; Admin Dose 3 ML; Start 10/04/18 at 08:00 Famotidine (Pepcid) 20 mg DAILY PO Last administered on 10/12/18 09:31; Admin Dose 20 MG; Start 10/05/18 at 09:00 Apixaban (Eliquis) 2.5 mg BID PO Last administered on 10/12/18 09:31; Admin Dose 2.5 MG; Start 10/05/18 at 10:00 Mupirocin (Bactroban) 1 applic BID TOP Last administered on 10/12/18 09:29; Admin Dose 1 APPLIC; Start 10/05/18 at 12:30 Docusate Sodium (Colace) 100 mg BID PO Last administered on 10/12/18 09:30; Admin Dose 100 MG; Start 10/05/18 at 15:00 Polyethylene Glycol (Miralax) 17 gm DAILY PO Last administered on 10/12/18 09:29; Admin Dose 17 GM; Start 10/05/18 at 15:00 Quetiapine Fumarate (Seroquel) 25 mg BID PO Last administered on 10/12/18 09:31; Admin Dose 25 MG; Start 10/06/18 at 09:00 Acetaminophen (Tylenol Tab) 1,000 mg Q6H PRN PO MILD PAIN(1-3)OR ELEVATED TEMP Last administered on 10/11/18 21:57; Admin Dose 1,000 MG; Start 10/06/18 at 22:00 Metolazone (Zaroxolyn) 5 mg DAILY@0530 PO Last administered on 10/10/18 05:45; Admin Dose 5 MG; Start 10/07/18 at 17:30; Status Hold Furosemide (Lasix) 40 mg BID DIURETICS IV Last administered on 10/10/18 06:22; Admin Dose 40 MG; Start 10/07/18 at 18:00; Status Hold Haloperidol (Haldol) 2 mg Q4H PRN IM FOR SEVERE AGITATION Last administered on 10/10/18 21:18; Admin Dose 2 MG; Start 10/08/18 at 02:00 EFRA BORDEN NP Oct 12, 2018 12:39
[2018-10-12] MEDS: ACETAMINOPHEN 500 MG TAB PO PRN ×2 (15:49→22:47)
--- NOTE | 2018-10-12 17:49 | NUR ---
ACUTE REHAB CONSULT ARU Consult orders received, verified. Awaiting PT eval for referral determination. Thank you for the referral. Avtar Joseph ARU [phone]
--- NOTE | 2018-10-12 17:59 | NUR ---
EOSS;PT HEMODYNAMICS STABLE;VPACED 100%;TYLENOL GIVEN PO FOR PAIN X1 WITH OK RELIEF;PT IN CHAIR X2 TODAY;EPISODES OF CONFUSION AT TIMES;RA SATS WELL;HOURLY ROUNDING;ALL NEEDS MET;CON'T POC/OBS
[2018-10-12] MEDS: ATORVASTATIN 40 MG TAB PO SCH (22:25)
[2018-10-13] VITALS (8 sets, daily range): BP systolic 105–136; BP diastolic 51–64; PULSE 70–79; RESP 18–20
--- NOTE | 2018-10-13 06:28 | NUR ---
EOSS: Patient slept majority of the night. Woke up an hour last night. I gave him coffee as requested and lorena cracker which he ate and tolerated well. Patient also requested for Tylenol 2 tabs for headache which had resolved. Remains on room air. No SOB noted. No fall or injury. Awaiting for PT eval for referal determination.
[2018-10-13] MEDS: QUETIAPINE 25 MG TAB PO SCH (08:58)
[2018-10-13] MEDS: FAMOTIDINE 20 MG TAB PO SCH (08:58)
[2018-10-13] MEDS: APIXABAN 5 MG TABLET PO SCH (08:58)
[2018-10-13] MEDS: MUPIROCIN 2% 22 GM OINT TOP SCH (08:59)
[2018-10-13] MEDS: POLYETHYLENE GLYCOL 17 GM PACKET PO SCH (09:00)
[2018-10-13] MEDS: DOCUSATE SODIUM 100 MG CAP PO SCH (09:00)
[2018-10-13] MEDS ORDERED: SOD CHLORIDE 0.9% 1,000 ML IV SCH (09:00)
[2018-10-13] MEDS: METOPROLOL (XL) 50 MG TAB PO SCH (09:00)
--- NOTE | 2018-10-13 09:04 | CONS ---
Consult Date/Type/Reason Admit Date/Time Oct 04, 2018 at 01:12 Initial Consult Date 10/04/18 Type of Consultation: cv Requesting Provider: RICHARD SHIRLEY DO Date/Time of Note DATE: 10/13/18 TIME: 09:03 Subjective Cardiology follow-up progress note Subjective: Case discussed with staff. Telemetry was reviewed. Patient remains in ventricular paced rhythm. Patient denies any cp or sob to me and is less hypoxemic still with cough d/w Dr Shirley Objective: General: disheveled looking gentleman. in no acute distress HEENT: NC/AT. pupils are equal. round. NECK: Status post previous trach. no stridor. CV: RRR. systolic murmur; no gallop or rubs. PULM:+ mild rhonchi. GI: SOFT, NT, ND, no rebound or guarding Extremity: Less LE edema. Status post right AKA neuro: awake and alert. Oriented to person and place Psych: Calm now rectal: deferred : normal Chest x-ray 10/05/2018 shows: Interstitial infiltrate/edema are moderately improved. Mild improvement in bibasilar alveolar infiltrates. Minimal bilateral pleural effusions are unchanged. Chest x-ray 10/10/2018 shows: 1. Slightly improved pulmonary edema. 2. No other change from the 10/08/2018 chest radiograph. Objective Vitals Vital Signs Date Temp Pulse Resp B/P (MAP) Pulse Ox O2 O2 Flow FiO2 Time Delivery Rate 10/13/18 70 08:25 10/13/18 98.2 20 127/59 94 Room Air 07:09 (81) 10/12/18 2.0 28 17:15 Intake and Output 10/12/18 10/12/18 10/13/18 1515:00 23:00 07:00 IntakeIntake Total 620 ml OutputOutput Total 100 ml BalanceBalance 620 ml -100 ml Results/Medications Result Diagram: 10/13/18 0537 10/13/18 0537 Results 24 hrs Laboratory Tests Test 10/13/18 05:37 White Blood Count 7.7 Red Blood Count 4.19 L Hemoglobin 11.3 L Hematocrit 35.6 L Mean Corpuscular Volume 85.0 Mean Corpuscular Hemoglobin 27.0 L Mean Corpuscular Hemoglobin Concent 31.7 L Red Cell Distribution Width 17.4 H Platelet Count 408 # Mean Platelet Volume 10.5 H Immature Granulocytes % 0.400 Neutrophils % 59.8 Lymphocytes % 27.1 Monocytes % 9.6 Eosinophils % 2.1 Basophils % 1.0 Nucleated Red Blood Cells % 0.0 Immature Granulocytes # 0.030 Neutrophils # 4.6 Lymphocytes # 2.1 Monocytes # 0.7 Eosinophils # 0.2 Basophils # 0.1 Nucleated Red Blood Cells # 0.0 Sodium Level 139 Potassium Level 4.0 Chloride Level 91 L Carbon Dioxide Level 32 H Anion Gap 16 H Blood Urea Nitrogen 96 H Creatinine 2.90 H Est Glomerular Filtrat Rate mL/min Glucose Level 94 Calcium Level 9.8 Phosphorus Level 5.4 H Magnesium Level 2.5 Home Meds Active Scripts Ibuprofen* (Motrin*) 400 Mg Tab, 400 MG PO Q8, #30 TAB Prov:SAFIA LUGO MD 12/12/17 Hydrocodone/Acetaminophen ([place] 5-325 Tablet) 1 Each Tablet, 1 TAB PO Q6H PRN for PAIN, #20 TAB Prov:SAFIA LUGO MD 12/12/17 Reported Medications Aspirin (Low Dose Aspirin) 81 Mg Tablet.dr, 81 MG PO DAILY, #30 TAB 12/01/16 Metoprolol Succinate* (Toprol XL*) 50 Mg Tab.er.24h, 50 MG PO DAILY, TAB 05/13/15 Losartan Potassium* (Losartan Potassium*) 50 Mg Tablet, 50 MG PO DAILY, TAB 05/13/15 Atorvastatin* (Atorvastatin*) 40 Mg Tablet, 40 MG PO HS, TAB 05/13/15 Bumetanide* (Bumex*) 2 Mg Tab, 2 MG PO OD 11/15/12 Medications Current Medications Atorvastatin Calcium (Lipitor) 40 mg HS PO Last administered on 10/12/18at 22:25; Admin Dose 40 MG; Start 10/04/18 at 21:00 Metoprolol Succinate (Toprol Xl) 50 mg DAILY PO Last administered on 10/12/18at 09:32; Admin Dose 50 MG; Start 10/04/18 at 09:00 Albuterol/ Ipratropium (Duoneb) 3 ml Q4H RESP THERAPY PRN HHN sob Last a dministered on 10/08/18at 15:22; Admin Dose 3 ML; Start 10/04/18 at 08:00 Famotidine (Pepcid) 20 mg DAILY PO Last administered on 10/12/18 09:31; Admin Dose 20 MG; Start 10/05/18 at 09:00 Apixaban (Eliquis) 2.5 mg BID PO Last administered on 10/12/18 22:25; Admin Dose 2.5 MG; Start 10/05/18 at 10:00 Mupirocin (Bactroban) 1 applic BID TOP Last administered on 10/12/18 22:27; Admin Dose 1 APPLIC; Start 10/05/18 at 12:30 Docusate Sodium (Colace) 100 mg BID PO Last administered on 10/12/18 22:25; Admin Dose 100 MG; Start 10/05/18 at 15:00 Polyethylene Glycol (Miralax) 17 gm DAILY PO Last administered on 10/12/18 09:29; Admin Dose 17 GM; Start 10/05/18 at 15:00 Quetiapine Fumarate (Seroquel) 25 mg BID PO Last administered on 10/12/18 22:25; Admin Dose 25 MG; Start 10/06/18 at 09:00 Acetaminophen (Tylenol Tab) 1,000 mg Q6H PRN PO MILD PAIN(1-3)OR ELEVATED TEMP Last administered on 10/12/18 22:47; Admin Dose 1,000 MG; Start 10/06/18 at 22:00 Metolazone (Zaroxolyn) 5 mg DAILY@0530 PO Last administered on 10/10/18 05:45; Admin Dose 5 MG; Start 10/07/18 at 17:30; Status Hold Furosemide (Lasix) 40 mg BID DIURETICS IV Last administered on 10/10/18 06:22; Admin Dose 40 MG; Start 10/07/18 at 18:00; Status Hold Haloperidol (Haldol) 2 mg Q4H PRN IM FOR SEVERE AGITATION Last administered on 10/10/18 21:18; Admin Dose 2 MG; Start 10/08/18 at 02:00 Sodium Chloride 1,000 ml @ 75 mls/hr [id number] IV ; Start 10/13/18 at 09:00 Assessment/Plan Hospital Course (Demo Recall) Acute hypoxic hypercapnic respiratory failure Congestive heart failure acute on chronic 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 diuresis as tolerated. Currently diuretics on hold due to acute renal failure Continue respiratory care oxygen supplement. BiPAP /high flow as needed cont eliquis Not on TAYLOR inhibitor due to his renal failure. We will resume his ARB once okay from renal standpoint Monitor I's and O's. cont toprol Consider acute rehab evaluation Thank. you for his referral we will continue to monitor with you. SHARONDA BRICENO MD [facility] SHARONDA BRICENO MD Oct 13, 2018 09:04
--- NOTE | 2018-10-13 09:12 | PN ---
DATE: 10/13/2018 SUBJECTIVE: The patient is stable, lethargic. No events overnight. OBJECTIVE: VITAL SIGNS: Blood pressure is 127/59, respirations 20, pulse 71, temperature 98.2. HEENT: Head is normocephalic. NECK: Supple. HEART: Regular rate. LUNGS: Show diminished breath sounds at the base. ABDOMEN: Soft, nontender to palpation without rebound or guarding. EXTREMITIES: Negative for clubbing, cyanosis, no edema on the left lower leg. Right lower extremity as noted BKA. DERMATOLOGIC: No rashes. MUSCULOSKELETAL: No joint effusion. NEUROLOGIC: No change in exam. MEDICATIONS: Reviewed. LABORATORY DATA: Shows sodium 139, potassium 4.0, chloride 91, bicarbonate 32, BUN 96, creatinine 2. 90. White count 7.7, hemoglobin 11.3, platelet count is 408. ASSESSMENT AND PLAN: 1. Acute hypoxemic respiratory failure secondary to congestive heart failure exacerbation, COPD exac erbation, pneumonia. The patient is clinically improved. The patient has completed antibiotic cours e currently on room air. Continue to monitor. 2. Nonoliguric acute kidney injury. Etiology is likely secondary to volume depletion due to recent diuretic use, possible tubular injury. The patient's renal function continues to decline. We will s tart the patient on IV fluids, monitor volume status and renal function closely. 3. Acute systolic heart failure. The patient is compensated. Diuretic therapy is on hold. The pat ient appears hypovolemic. We will start patient on IV fluids and monitor closely. 4. Sepsis secondary to tracheal bronchitis. The patient has completed antibiotic course. 5. Metabolic alkalosis likely secondary to acute kidney injury, hyperkalemia. The patient will be g iven a gentle fluid challenge and monitor closely. 6. Mineral bone disorder, monitor calcium and phosphorus levels. 7. Acute encephalopathy. Etiology is toxic metabolic, improved. 8. Anxiety disorder. Continue Seroquel and Haldol. 9. Coronary artery disease, status post coronary artery bypass graft. Continue medical management. 10. Possible myopathy due to prolonged hospital stay. Continue physical therapy. 11. Arrhythmia, status post ICD placement. 12. Peripheral vascular disease status post below knee amputation. 13. Hypertension. Continue current blood pressure regimen. 14. Dyslipidemia. Continue statin therapy. 15. History of throat cancer, status post tracheostomy with residual open ostium. 16. Gastrointestinal and deep vein thrombosis prophylaxis. Dictated By: RICHARD CORRINE DO NR/GUS Conf#: [id number] DID#: [id number] CC: RICHARD CASTLE DO;*EndCC*
--- NOTE | 2018-10-13 13:30 | NUR ---
PT VERY AGITATED TOSSING PITCHER AND CUPS AND USING FOUL LANGUAGE;CHARGE NURSE MELBA GAVE HALDOL IM AT THIS TIME;PT PULLED OUT IV ACCESS;PT APPEARS VERY CONFUSED;PT REFUSED TO ALLOW ME TO RESTART IV ACCESS
[2018-10-13] MEDS: HALOPERIDOL 5 MG INJ IM PRN (13:52)
--- NOTE | 2018-10-13 14:03 | CONS ---
Assessment/Plan Assessment/Plan Hospital Course (Demo Recall) No events, awake, looks comfortable, no fevers Microbiology: Blood cultures negative nares swab positive MRSA Physical examination: This is a fragile well-developed elderly man who is awake in no distress. Head atraumatic normocephalic neck is supple patient has a dressing over his trachea chest rise symmetrical breath sounds with bilateral scattered rhonchi. Heart: S1-S2. Abdomen soft bowel sounds present. Extremities with left lower extremity resolved erythema, patient is right below- knee amputation Assessment: 1. Acute hypoxemic respiratory failure secondary to fluid overload COPD exacerbation, possible pneumonia==> completed abx 2. Status post left lower extremity cellulitis 3. MRSA nares consolidation 4. History of peripheral vascular disease status post right BKA 5. Acute on chronic kidney disease 6. Dementia 7. 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 Plan: Remains stable, off abx, continue present care, aspiration precautions, fo llow repeat MRSA swab==> reordered again today Consultation Date/Type/Reason Admit Date/Time Oct 04, 2018 at 01:12 Initial Consult Date 10/04/18 Type of Consult id Requesting Provider: RICHARD CASTLE DO Date/Time of Note DATE: 10/13/18 TIME: 14:02 Exam/Review of Systems Exam Vitals Vital Signs Date Temp Pulse Resp B/P (MAP) Pulse Ox O2 O2 Flow FiO2 Time Delivery Rate 10/13/18 70 12:33 10/13/18 97.6 20 122/56 98 Room Air 11:52 (78) 10/12/18 2.0 28 17:15 Intake and Output 10/12/18 10/12/18 10/13/18 1515:00 23:00 07:00 IntakeIntake Total 620 ml OutputOutput Total 100 ml BalanceBalance 620 ml -100 ml Results Result Diagram: 10/13/1837 10/13/1837 Results 24hrs Laboratory Tests Test 10/13/18 05:37 White Blood Count 7.7 Red Blood Count 4.19 L Hemoglobin 11.3 L Hematocrit 35.6 L Mean Corpuscular Volume 85.0 Mean Corpuscular Hemoglobin 27.0 L Mean Corpuscular Hemoglobin Concent 31.7 L Red Cell Distribution Width 17.4 H Platelet Count 408 # Mean Platelet Volume 10.5 H Immature Granulocytes % 0.400 Neutrophils % 59.8 Lymphocytes % 27.1 Monocytes % 9.6 Eosinophils % 2.1 Basophils % 1.0 Nucleated Red Blood Cells % 0.0 Immature Granulocytes # 0.030 Neutrophils # 4.6 Lymphocytes # 2.1 Monocytes # 0.7 Eosinophils # 0.2 Basophils # 0.1 Nucleated Red Blood Cells # 0.0 Sodium Level 139 Potassium Level 4.0 Chloride Level 91 L Carbon Dioxide Level 32 H Anion Gap 16 H Blood Urea Nitrogen 96 H Creatinine 2.90 H Est Glomerular Filtrat Rate mL/min Glucose Level 94 Calcium Level 9.8 Phosphorus Level 5.4 H Magnesium Level 2.5 Medications Medication Current Medications Atorvastatin Calcium (Lipitor) 40 mg HS PO Last administered on 10/12/18 22:25; Admin Dose 40 MG; Start 10/04/18 at 21:00 Metoprolol Succinate (Toprol Xl) 50 mg DAILY PO Last administered on 10/13/18 09:00; Admin Dose 50 MG; Start 10/04/18 at 09:00 Albuterol/ Ipratropium (Duoneb) 3 ml Q4H RESP THERAPY PRN HHN sob Last administered on 10/08/18 15:22; Admin Dose 3 ML; Start 10/04/18 at 08:00 Famotidine (Pepcid) 20 mg DAILY PO Last administered on 10/13/18 08:58; Admin Dose 20 MG; Start 10/05/18 at 09:00 Apixaban (Eliquis) 2.5 mg BID PO Last administered on 10/13/18 08:58; Admin Dose 2.5 MG; Start 10/05/18 at 10:00 Mupirocin (Bactroban) 1 applic BID TOP Last administered on 10/13/18 08:59; Admin Dose 1 APPLIC; Start 10/05/18 at 12:30 Docusate Sodium (Colace) 100 mg BID PO Last administered on 10/12/18 22:25; Admin Dose 100 MG; Start 10/05/18 at 15:00 Polyethylene Glycol (Miralax) 17 gm DAILY PO Last administered on 10/12/18 09:29; Admin Dose 17 GM; Start 10/05/18 at 15:00 Quetiapine Fumarate (Seroquel) 25 mg BID PO Last administered on 2/14/19at 08:58; Admin Dose 25 MG; Start 10/06/18 at 09:00 Acetaminophen (Tylenol Tab) 1,000 mg Q6H PRN PO MILD PAIN(1-3)OR ELEVATED TEMP Last administered on 10/12/18at 22:47; Admin Dose 1,000 MG; Start 10/06/18 at 22:00 Metolazone (Zaroxolyn) 5 mg DAILY@0530 PO Last administered on 10/10/18at 05:45; Admin Dose 5 MG; Start 10/07/18 at 17:30; Status Hold Furosemide (Lasix) 40 mg BID DIURETICS IV Last administered on 10/10/18 06:22; Admin Dose 40 MG; Start 10/07/18 at 18:00; Status Hold Haloperidol (Haldol) 2 mg Q4H PRN IM FOR SEVERE AGITATION Last administered on 10/13/18at 13:52; Admin Dose 2 MG; Start 10/08/18 at 02:00 Sodium Chloride 1,000 ml @ 75 mls/hr [id number] IV Last administered on 10/13/18at 09:47; Admin Dose 75 MLS/HR; Start 10/13/18 at 09:00 EFRA BORDEN NP Oct 13, 2018 14:03
--- NOTE | 2018-10-13 14:15 | NUR ---
PT EVALUATION Therapy day number 1 Evaluation Start Time 14:15 Evaluation End Time 15:15 Evaluation Total Time 60 min Subjective Current complaint of pain Pain Scale NUMERIC Pain Intensity 5 (0-10) Patient Stated Goal for Pain Relief 0 (0-10) Pain Level Comment R shoulder pain Pre Treatment Vital Signs Stable Yes Supine to Sit Minimum Assist Bed Transfer Ability Moderate Assist Chair Transfer Ability Maximum Assist Additional Mobility Comments squat-pivot transfer to bedside chair, pt unable to use RUE to support Static Sitting Balance Fair plus Dynamic Sitting Balance Fair plus Safety Judgement Poor Activity Tolerance Fair Post Treatment Pain Intensity 5 0-10 Total Minutes 60 Total Units 4 PT Technical Record Comment 83 yo male presented to ER with SOB and was found to have acute respiratory failure secondary to congestive heart failure exacerbation, COPD exacerbation, pneumonia, and acute on chronic kidney disease. Pt had been recently admitted to [facility], transferred to [place] and [facility], then discharged home shortly before current admission. Precautions: fall risk, contact precautions PMHx: anxiety, CAD s/p bypass graft, arrhythmia, HTN, peripheral vascular disease s/p R BKA, dementia, dyslipidemia, throat cancer s/p tracheostomy residual open ostium, s/p LLE cellulitis, dementia, pacemaker, anemia PLOF: Pt reports living in a single story home with no steps to enter, with a friend who is available at night to assist. Pt has a R BKA, reports Jose with WC mobility, transfers to WC, and drives. Pt reports infrequent ambulation with R prosthesis and 4WW. S: Pt found supine in bed and is agreeable to PT, RN cleared pt for activity. O: PT evaluation complete, pt was assisted to bedside chair at end of treatment, chair alarm on, call light nearby, all needs met. No reports of increased pain, nausea, dizziness, SOB with activity. Pt was educated on safety, fall prevention, and transfer technique. RN was informed of pt response to activity and that pt was in bedside chair. A: Pt presents with poor mobility, requiring mod-maxA for transfer to and from bedside chair due to weakness, limited ROM, and pain in his RUE, and reduced strength throughout. Pt not receptive to PT POC and continuously asked to go home. Pt would benefit from continued skilled inpatient PT to improve strength, ROM, safety and independence with functional mobility. P: Continue POC 5x/wk until goals met. No DME needed at this time, pt has manual WC and 4WW. Recommendation: Pt currently requires assistance for all mobility, and does not have 24/7 assistance at home. Pt would benefit from continued rehab post hospitalization when medically cleared by MD.
--- NOTE | 2018-10-13 19:43 | NUR ---
EOSS;PT AWAKE,ALERT ORIENTED 2-3;EPISODES OF CONFUSION/DIMENTIA;HEMODYNAMICS STABLE;MONITOR INDICATES VPACING;PT REFUSED IV ACCESS;ENCOURAGED PT TO DRINK;HOURLY ROUNDING;PT TO TRANSFER TO ACUTE REHAB
== END 2018-10-13 20:05 | DRG 871 ==
LOC: E/R 22:38 → ICU 10-04 01:12 → 6WM 10-04 22:00
PROVIDERS: ADMIT Internal Medicine; ATTEND Internal Medicine
DX: A41.9 Sepsis, unspecified organism (principal); J96.21 Acute and chronic respiratory failure with hypoxia; I50.23 Acute on chronic systolic (congestive) heart failure; J18.9 Pneumonia, unspecified organism; G92 Toxic encephalopathy; N17.9 Acute kidney failure, unspecified; E87.3 Alkalosis; I13.0 Hypertensive heart and chronic kidney disease with heart failure and stage 1 through stage 4 chronic kidney disease, or unspecified chronic kidney disease; J44.1 Chronic obstructive pulmonary disease with (acute) exacerbation; L03.116 Cellulitis of left lower limb; D63.1 Anemia in chronic kidney disease; E87.5 Hyperkalemia; E78.5 Hyperlipidemia, unspecified; I25.10 Atherosclerotic heart disease of native coronary artery without angina pectoris; I73.9 Peripheral vascular disease, unspecified; I48.91 Unspecified atrial fibrillation; N18.9 Chronic kidney disease, unspecified; R41.0 Disorientation, unspecified; Z93.0 Tracheostomy status; Z22.322 Carrier or suspected carrier of Methicillin resistant Staphylococcus aureus; Z95.1 Presence of aortocoronary bypass graft; Z95.810 Presence of automatic (implantable) cardiac defibrillator; Z85.21 Personal history of malignant neoplasm of larynx; Z89.511 Acquired absence of right leg below knee; Z87.891 Personal history of nicotine dependence
CPT/HCPCS: 36415; 36600; 71045; 80048; 80053; 81003; 82043; 82803; 83605; 83735; 83880; 84100; 84155; 84300; 84484; 85025; 85610; 85730; 87040; 87081; 93005; 94660; 94664; 96374; 97163; J0692; J1630; J1650; J1940; J2060; J7030

== ENCOUNTER 2018-10-13 19:17 | Inpatient (IN) | payer MEDICARE ==
[~2018-10-13] VITALS: Ht 180.3 cm; Wt 67.7 kg
[2018-10-13] MEDS ORDERED: LACTULOSE 30ML CUP PO PRN (21:30)
[2018-10-13] MEDS ORDERED: ACETAMINOPHEN 325 MG TAB PO PRN (21:30)
[2018-10-13] MEDS ORDERED: MAGNESIUM HYDROXIDE 30ML CUP PO PRN (21:30)
[2018-10-13] MEDS ORDERED: BISACODYL 10 MG SUPP PR PRN (21:30)
[2018-10-13] MEDS ORDERED: DOCUSATE SODIUM 100 MG CAP PO SCH (22:00)
[2018-10-13] MEDS: QUETIAPINE 25 MG TAB PO SCH (22:15)
[2018-10-13] MEDS: ATORVASTATIN 40 MG TAB PO SCH (22:15)
[2018-10-13] MEDS: ACETAMINOPHEN 500 MG TAB PO PRN (22:15)
[2018-10-13] MEDS: APIXABAN 5 MG TABLET PO SCH (22:15)
[2018-10-13 22:30] VITALS: Ht 180.3 cm; Wt 67.7 kg
[2018-10-13 22:43] VITALS: BP 154/68; PULSE 74; RESP 18
[2018-10-13] MEDS: MUPIROCIN 2% 22 GM OINT TOP SCH (23:49)
[2018-10-14] MEDS: ALBUTEROL/IPRATROPIUM (NEB) 3 ML AMP HHN SCH ×6 (00:10→20:40)
[2018-10-14] MEDS: HALOPERIDOL 5 MG INJ IM PRN (01:11)
[2018-10-14 03:16] VITALS: BP 118/50; PULSE 66; RESP 19
[2018-10-14 07:00] VITALS: BP 114/55; PULSE 70; RESP 18
[2018-10-14] MEDS: QUETIAPINE 25 MG TAB PO SCH ×2 (08:05→21:47)
[2018-10-14] MEDS ORDERED: METOPROLOL (XL) 50 MG TAB PO SCH (09:00)
[2018-10-14] MEDS: DOCUSATE SODIUM 100 MG CAP PO SCH ×2 (09:07→21:48)
[2018-10-14] MEDS: APIXABAN 5 MG TABLET PO SCH ×2 (09:07→21:47)
[2018-10-14] MEDS: FAMOTIDINE 20 MG TAB PO SCH (09:07)
[2018-10-14] MEDS: MUPIROCIN 2% 22 GM OINT TOP SCH ×2 (09:08→21:49)
[2018-10-14] MEDS: POLYETHYLENE GLYCOL 17 GM PACKET PO SCH (09:08)
--- NOTE | 2018-10-14 11:04 | CONS ---
Assessment/Plan Assessment/Plan Hospital Course (Demo Recall) No events, tx to acute rehab, awake, looks comfortable, no fevers Microbiology: nares swab positive MRSA Physical examination: This is a fragile well-developed elderly man who is awake in no distress. Head atraumatic normocephalic neck is supple patient has a dressing over his trachea chest rise symmetrical breath sounds with bilateral scattered rhonchi. Heart: S1-S2. Abdomen soft bowel sounds present. Extremities with left lower extremity resolved erythema, patient is right below-knee amputation Assessment: 1. Acute hypoxemic respiratory failure secondary to fluid overload COPD exacerbation, possible pneumonia==> completed abx 2. Status post left lower extremity cellulitis 3. MRSA nares consolidation 4. History of peripheral vascular disease status post right BKA 5. Acute on chronic kidney disease 6. Dementia 7. 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 Plan: Stable off abx, follow repeat MRSA swab==> dc isolation if negative Consultation Date/Type/Reason Admit Date/Time Oct 13, 2018 at 20:16 Initial Consult Date Type of Consult id Date/Time of Note DATE: 10/14/18 TIME: 11:03 Exam/Review of Systems Exam Vitals Vital Signs Date Temp Pulse Resp B/P (MAP) Pulse Ox O2 O2 Flow FiO2 Time Delivery Rate 10/14/18 71 24 100 Nasal 2.0 08:37 Cannula 10/14/18 98.8 114/55 07:00 (74) Intake and Output 10/13/18 10/13/18 10/14/18 1414:59 22:59 06:59 IntakeIntake Total 200 ml BalanceBalance 200 ml Results Result Diagram: 10/14/18 0702 10/14/18 0703 Results 24hrs Laboratory Tests Test 10/13/18 22:00 10/14/18 07:02 10/14/18 07:03 Urine Color YELLOW Urine Clarity CLEAR Urine pH 7.0 Urine Specific [place] 1.015 Urine Ketones NEGATIVE Urine Nitrite NEGATIVE Urine Bilirubin NEGATIVE Urine Urobilinogen 2+ H Urine Leukocyte Esterase NEGATIVE Urine Microscopic RBC 0 Urine Microscopic WBC 0 Urine Hemoglobin NEGATIVE Urine Glucose NEGATIVE Urine Total Protein 1+ H White Blood Count 7.7 Red Blood Count 3.94 L Hemoglobin 10.7 L Hematocrit 33.9 L Mean Corpuscular Volume 86.0 Mean Corpuscular Hemoglobin 27.2 L Mean Corpuscular Hemoglobin Concent 31.6 L Red Cell Distribution Width 17.2 H Platelet Count 347 Mean Platelet Volume 10.8 H Immature Granulocytes % 0.300 Neutrophils % 58.5 Lymphocytes % 27.6 Monocytes % 11.0 Eosinophils % 1.4 Basophils % 1.2 Nucleated Red Blood Cells % 0.0 Immature Granulocytes # 0.020 Neutrophils # 4.5 Lymphocytes # 2.1 Monocytes # 0.9 Eosinophils # 0.1 Basophils # 0.1 Nucleated Red Blood Cells # 0.0 Sodium Level 138 Potassium Level 3.7 Chloride Level 93 L Carbon Dioxide Level 33 H Anion Gap 12 Blood Urea Nitrogen 99 H Creatinine 2.76 H Est Glomerular Filtrat Rate mL/min Glucose Level 109 Calcium Level 9.5 Total Bilirubin 0.2 Direct Bilirubin 0.00 Indirect Bilirubin 0.2 Aspartate Amino Transf (AST/SGOT) 49 H Alanine Aminotransferase (ALT/SGPT) 48 Alkaline Phosphatase 77 Total Protein 8.0 Albumin 3.8 Globulin 4.20 H Albumin/Globulin Ratio 0.90 Medications Medication Current Medications Docusate Sodium (Colace) 100 mg BID PO Last administered on 10/14/18 09:07; Admin Dose 100 MG; Start 10/14/18 at 09:00 Senna (Senokot) 1 tab HS PO ; Start 10/14/18 at 21:00 Magnesium Hydroxide (Milk Of Mag) 30 ml BID PRN PO CONSTIPATION; Start 10/13/18 at 21:30 Lactulose (Enulose) 20 gm DAILY PRN PO CONSTIPATION; Start 10/13/18 at 21:30 Bisacodyl (Dulcolax Supp) 10 mg DAILY PRN NC CONSTIPATION; Start 10/13/18 at 21:30 Acetaminophen (Tylenol Tab) 1,000 mg Q6H PRN PO MILD PAIN(1-3)OR ELEVATED TEMP Last administered on 10/13/18 22:15; Admin Dose 1,000 MG; Start 10/13/18 at 22:00 Albuterol/ Ipratropium (Duoneb) 3 ml Q4H RESP THERAPY HHN Last administered on 10/14/18at 08:27; Admin Dose 3 ML; Start 10/14/18 at 01:00 Apixaban (Eliquis) 2.5 mg BID PO Last administered on 10/14/18 09:07; Admin Dose 2.5 MG; Start 10/13/18 at 22:00 Atorvastatin Calcium (Lipitor) 40 mg DAILY@21 PO Last administered on 10/13/18at 22:15; Admin Dose 40 MG; Start 10/13/18 at 22:00 Famotidine (Pepcid) 20 mg DAILY PO Last administered on 10/14/18at 09:07; Admin Dose 20 MG; Start 10/14/18 at 09:00 Haloperidol (Haldol) 2 mg Q4H PRN IM AGITATION Last administered on 10/14/18at 01:11; Admin Dose 2 MG; Start 10/13/18 at 22:00 Metoprolol Succinate (Toprol Xl) 50 mg DAILY PO ; Start 10/14/18 at 09:00 Mupirocin (Bactroban) 1 applic BID TOP Last administered on 10/14/18at 09:08; Admin Dose 1 APPLIC; Start 10/13/18 at 22:00 Polyethylene Glycol (Miralax) 17 gm DAILY PO Last administered on 10/14/18at 09:08; Admin Dose 17 GM; Start 10/14/18 at 09:00 Influenza Virus Vaccine Quadrival (Fluzone) 0.5 ml ONCE ONCE IM* ; Start 10/15/18 at 10:00; Stop 10/15/18 at 10:01 Sodium Chloride 1,000 ml @ 75 mls/hr [id number] IV ; Start 10/14/18 at 09:00 Quetiapine Fumarate (Seroquel) 25 mg HS PO ; Start 10/14/18 at 21:00 EFRA BORDEN NP Oct 14, 2018 11:04
--- NOTE | 2018-10-14 12:35 | HP ---
DATE OF ADMISSION: 10/13/2018 CHIEF COMPLAINT: Respiratory failure, heart failure, myopathy. HISTORY OF PRESENT ILLNESS: This is an 83-year-old male with a past medical history of coronary ruiz ry disease, history of peripheral vascular disease, status post right below-knee amputation, history of arrhythmia. The patient is status post pacemaker placement, history of throat cancer, status post tracheostomy with decannulation with residual open ostium, history of coronary artery disease, histo ry of CABG, history of ICD placement, who presented to [facility] with shortness of breath. The patient was recently admitted to [facility] and had a prolonged cours e with respiratory failure and shortness of breath. The patient also has pneumonia. He was eventual ly transferred to [place] and then to a skilled nurse facility. Per patient, he was discharged from [facility] after being at home. He did have progressive shortness of breath, was readmitted to [facility] [place] [facility]. The patient upon admission was noted to have decompensated heart failure. He was a lso noted to have a tracheobronchitis. In terms of hospital course, the patient was placed on aggres sive diuretic therapy on IV antibiotics. The patient has clinical improvement of his tracheobronchit is, pneumonia and his heart failure. The patient did go to acute kidney injury on top of CKD likely due to hemodynamics and diuretic therapy and was started on IV hydration. The patient also was noted to have severe debility and critical illness myopathy due to prolonged hospital course. He was ther efore subsequently transferred to [facility] acute rehab for continued care. Upon my evaluation of the patient at this time, he is currently stable, lethargic. Denies any fevers , chills, nausea, vomiting. PAST MEDICAL HISTORY: History of coronary artery disease, arrhythmia, peripheral vascular disease, h istory of dementia, agitation. PAST SURGICAL HISTORY: Status post pacemaker ICD placement, status post laryngotomy with residual op en ostium, status post CABG, status post right below-knee amputation. ALLERGIES: NO KNOWN DRUG ALLERGIES. MEDICATIONS: Reviewed and reconciled. FAMILY HISTORY: No family history of kidney disease. SOCIAL HISTORY: The patient lives at home. REVIEW OF SYSTEMS: A 14-point review of systems conducted. Pertinent positives stated in HPI, other jordan negative. PHYSICAL EXAMINATION: VITAL SIGNS: Blood pressure is 125/67, respirations 18, pulse 72, temperature 98.6. HEENT: Head is normocephalic. Pupils are reactive to light. NECK: Supple. HEART: Regular rate. LUNGS: Show diminished breath sounds at base. ABDOMEN: Soft, nontender to palpation without rebound or guarding. EXTREMITIES: Negative for clubbing, cyanosis. No edema. The patient has right below-knee amputatio n. DERMATOLOGIC: No rashes. MUSCULOSKELETAL: No joint effusion. NEUROLOGIC: No change in exam. LABORATORY DATA: Show white count 7.7, hemoglobin 10.7, platelet count 347. CMP is pending. ASSESSMENT AND PLAN: 1. Acute hypoxic respiratory failure secondary to congestive heart failure exacerbation, chronic obs tructive pulmonary disease exacerbation, pneumonia. The patient is completing antibiotic course. Cu rrently on diuretic therapy. We will continue to monitor closely. The patient appears compensated. 2. Nonoliguric acute kidney injury on top of chronic kidney disease. Etiology is secondary to diure tics. The patient's renal function was declining. The patient was started on IV fluids. We will co judith to monitor renal function and volume status closely. 3. Acute systolic heart failure. The patient is currently compensated. Monitor closely on IV fluid s. Diuretics are currently on hold. 4. Sepsis secondary to tracheobronchitis. The patient is completing antibiotic course. 5. Metabolic acidosis secondary to acute kidney injury. Continue to monitor on gentle IV fluids. 6. Mineral bone disorder. Monitor calcium and phosphorus levels. 7. Acute encephalopathy. Etiology is toxic metabolic. 8. Anxiety disorder. Continue Seroquel and Haldol. 9. Coronary artery disease, status post coronary artery bypass graft. Continue medical management. 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 Continue physical therapy. 11. Arrhythmia, status post ICD placement. 12. Peripheral vascular disease, status post below knee amputation. 13. Hypertension. Continue blood pressure regimen. 14. Dyslipidemia. Continue statin therapy. 15. History of throat cancer, status post tracheostomy with residual open ostium. 16. Gastrointestinal and deep venous thrombosis prophylaxis. Dictated By: RICHARD SMITH/NTS Conf#: [id number] DID#: [id number] CC: REMIGIO REA MD;*EndCC*
[2018-10-14] MEDS: SOD CHLORIDE 0.9% 1,000 ML IV SCH ×2 (13:05→23:38)
--- NOTE | 2018-10-14 13:45 | CONS ---
DATE OF ADMISSION: 10/13/2018 DATE OF CONSULTATION: 10/14/2018 TYPE OF CONSULTATION: Rehabilitation post-admission physician evaluation. REHABILITATION IMPAIRMENT CATEGORY: Critical illness myopathy. ACTIVE COMORBIDITIES: 1. Status post respiratory failure with trach in a history of patient with throat cancer. 2. Status post sepsis. 3. Acute on chronic kidney injury. 4. Peripheral vascular disease. 5. Hypertension. 6. Hyperlipidemia. 7. COPD. 8. History of right above the knee amputation. 9. History of coronary artery disease, CABG and ICD. 10. Impairments in self-care, mobility, cognition and dysphagia. HISTORY OF PRESENT ILLNESS: The patient is an 83-year-old gentleman with a history of multiple medic al comorbidities including a right above the knee amputation, throat cancer with open ostium, coronar y artery disease with history of CABG who was admitted to [facility] with increased shortness of breath. The patient was treated for respiratory failure and eventually transferred to [facility], then to a [place] [facility] [place] facility and ultimately home. The patient returned to [facility] with respiratory failure and decompensated heart failure. The patient did require B iPAP. The patient was noted to have pneumonia, sepsis, acute kidney injury and anemia. The patient had improvement in his medical status and now has been referred for acute rehabilitation unit given t he need for closer supervision with the multiple medical comorbidities. The patient has been cleared to transfer to the rehabilitation unit for comprehensive interdisciplinary rehab care. FUNCTIONAL HISTORY: Prior to recent events, he was independent in self-care tasks and mobility. Cur rently, he requires maximal to dependent assist for self-care and mobility tasks. FAMILY AND SOCIAL HISTORY: The patient reportedly lives at home and he does hope to return there upo n discharge. PAST MEDICAL HISTORY: 1. Throat cancer, status post tracheostomy with residual open ostium. 2. Coronary artery disease with history of CABG. 3. History of cardiac arrhythmia, history of pacemaker. 4. Peripheral vascular disease. 5. Hypertension. 6. Hyperlipidemia. 7. Chronic kidney disease. 8. COPD. 9. History of right above the knee amputation. CURRENT MEDICATIONS: 1. Lipitor 40 mg p.o. at bedtime. 2. Colace 100 mg p.o. b.i.d. 3. Pepcid 20 mg p.o. daily. 4. Haldol p.r.n. 5. Toprol-XL 50 mg p.o. daily. 6. MiraLax 1 packet p.o. daily. 7. Seroquel 25 mg p.o. b.i.d. 8. Albuterol inhaler. 9. Eliquis 2.5 mg p.o. b.i.d. ALLERGIES: THE PATIENT WITH NO KNOWN DRUG ALLERGIES. PHYSICAL EXAMINATION: VITAL SIGNS: He is currently afebrile with stable vital signs. HEENT: Extraocular motions appear intact. Old ostomy site is clean. LUNGS: With coarse breath sounds. CARDIAC: S1, S2. ABDOMEN: Soft, nontender, positive bowel sounds. NEUROLOGIC: He is awake. He will follow simple 1-step commands. He demonstrates antigravity streng th in the left upper extremity. He has decreased forward flexion and abduction on the right upper ex tremity. Left lower extremity demonstrates antigravity strength and right lower extremity with an ab ove the knee amputation. INTEGUMENT: Does reveal left proximal forearm healing scab, incontinence dermatitis in bilateral helen ins, perineal erythema and sacral erythema. Left heel with blanchable redness. PLAN: The patient has been admitted for comprehensive interdisciplinary acute rehab and is anticipat ed to tolerate 3 hours of daily therapy in divided doses for at least 5/7 days a week. The treatment plan will include: 1. Physical therapy to focus on bed mobility, transfers and wheelchair mobility with the goal of hav ing patient reach a standby assist level. 2. Occupational therapy to focus on hygiene, grooming, dressing, bathing and toileting activities wi th goal of having patient reach a standby assist level. 3. Full cognitive interdisciplinary retraining with physical therapy and occupational therapy for fu nctional cognitive retraining and neuropsychology for full cognitive evaluation and oversight of cogn itive program. The patient would benefit from speech therapy to focus on cognitive impairments in ad dition to dysphagia management with the goal of having the patient meet nutritional needs by mouth. 4. Rehabilitation nursing for carryover of therapeutic interventions, the goal of continent of bowel and bladder, the goal of improved skin integrity and patient and family education with regards to th e aforementioned issues. ESTIMATED LENGTH OF STAY: 14 days. DISPOSITION GOAL: Home with supervision. REHABILITATION BARRIER: Cognition. INTERVENTION FOR BARRIER: Interdisciplinary cognitive therapy. I acknowledge that I performed a full physical examination on this patient within 24 hours of admissi on to the rehabilitation unit. I believe the patient is a good candidate for comprehensive interdisc iplinary rehab care and is anticipated to make reasonable goals in a reasonable period of time as out lined above. Dictated By: REMIGIO LEIJA/GUS Conf#: [id number] DID#: [id number] CC: RICHARD CASTLE DO;*EndCC*
[2018-10-14 14:00] VITALS: BP 114/48; PULSE 69; RESP 18
[2018-10-14] MEDS: MULTIVITAMINS THERAPEUTIC TAB PO SCH (15:50)
[2018-10-14] MEDS: ZINC SULFATE 220 MG CAP PO SCH (15:50)
--- NOTE | 2018-10-14 19:12 | CONS ---
Consult Date/Type/Reason Admit Date/Time Oct 13, 2018 at 20:16 Initial Consult Date Type of Consultation: cv Date/Time of Note DATE: 10/14/18 TIME: 19:08 Subjective Cardiology follow-up progress note Subjective: Case discussed with staff. pt is in acute rehab now Patient denies any cp or sob to me and is less hypoxemic pt still with cough Objective: General: thin. in no acute distress HEENT: NC/AT. pupils are equal. round. NECK: Status post previous trach. no stridor. CV: RRR. systolic murmur; no gallop or rubs. PULM:+ mild rhonchi. GI: SOFT, NT, ND, no rebound or guarding Extremity: mild left LE edema. Status post right AKA neuro: awake and alert. Oriented to person and place Psych: Calm now rectal: deferred : normal Chest x-ray 10/05/2018 shows: Interstitial infiltrate/edema are moderately improved. Mild improvement in bibasilar alveolar infiltrates. Minimal bilateral pleural effusions are unchanged. Chest x-ray 10/10/2018 shows: 1. Slightly improved pulmonary edema. 2. No other change from the 10/08/2018 chest radiograph. Objective Vitals Vital Signs Date Temp Pulse Resp B/P (MAP) Pulse Ox O2 O2 Flow FiO2 Time Delivery Rate 10/14/18 72 20 100 Nasal 2.0 17:10 Cannula 10/14/18 98.0 114/48 14:00 (70) Intake and Output 10/13/18 10/13/18 10/14/18 1515:00 23:00 07:00 IntakeIntake Total 200 ml BalanceBalance 200 ml Results/Medications Result Diagram: 10/14/18 0702 10/14/18 0703 Results 24 hrs Laboratory Tests Test 10/13/18 22:00 10/14/18 07:02 10/14/18 07:03 Urine Color YELLOW Urine Clarity CLEAR Urine pH 7.0 Urine Specific [place] 1.015 Urine Ketones NEGATIVE Urine Nitrite NEGATIVE Urine Bilirubin NEGATIVE Urine Urobilinogen 2+ H Urine Leukocyte Esterase NEGATIVE Urine Microscopic RBC 0 Urine Microscopic WBC 0 Urine Hemoglobin NEGATIVE Urine Glucose NEGATIVE Urine Total Protein 1+ H White Blood Count 7.7 Red Blood Count 3.94 L Hemoglobin 10.7 L Hematocrit 33.9 L Mean Corpuscular Volume 86.0 Mean Corpuscular Hemoglobin 27.2 L Mean Corpuscular Hemoglobin Concent 31.6 L Red Cell Distribution Width 17.2 H Platelet Count 347 Mean Platelet Volume 10.8 H Immature Granulocytes % 0.300 Neutrophils % 58.5 Lymphocytes % 27.6 Monocytes % 11.0 Eosinophils % 1.4 Basophils % 1.2 Nucleated Red Blood Cells % 0.0 Immature Granulocytes # 0.020 Neutrophils # 4.5 Lymphocytes # 2.1 Monocytes # 0.9 Eosinophils # 0.1 Basophils # 0.1 Nucleated Red Blood Cells # 0.0 Sodium Level 138 Potassium Level 3.7 Chloride Level 93 L Carbon Dioxide Level 33 H Anion Gap 12 Blood Urea Nitrogen 99 H Creatinine 2.76 H Est Glomerular Filtrat Rate mL/min Glucose Level 109 Calcium Level 9.5 Total Bilirubin 0.2 Direct Bilirubin 0.00 Indirect Bilirubin 0.2 Aspartate Amino Transf (AST/SGOT) 49 H Alanine Aminotransferase (ALT/SGPT) 48 Alkaline Phosphatase 77 Total Protein 8.0 Albumin 3.8 Globulin 4.20 H Albumin/Globulin Ratio 0.90 Home Meds Active Scripts Ibuprofen* (Motrin*) 400 Mg Tab, 400 MG PO Q8, #30 TAB Prov:SAFIA LUGO MD 12/12/17 Hydrocodone/Acetaminophen (Bly 5-325 Tablet) 1 Each Tablet, 1 TAB PO Q6H PRN for PAIN, #20 TAB Prov:SAFIA LUGO MD 12/12/17 Reported Medications Aspirin (Low Dose Aspirin) 81 Mg Tablet.dr, 81 MG PO DAILY, #30 TAB 12/01/16 Metoprolol Succinate* (Toprol XL*) 50 Mg Tab.er.24h, 50 MG PO DAILY, TAB 05/13/15 Losartan Potassium* (Losartan Potassium*) 50 Mg Tablet, 50 MG PO DAILY, TAB 05/13/15 Atorvastatin* (Atorvastatin*) 40 Mg Tablet, 40 MG PO HS, TAB 05/13/15 Bumetanide* (Bumex*) 2 Mg Tab, 2 MG PO OD 11/15/12 Medications Current Medications Docusate Sodium (Colace) 100 mg BID PO Last administered on 10/14/18at 09:07; Admin Dose 100 MG; Start 10/14/18 at 09:00 Senna (Senokot) 1 tab HS PO ; Start 10/14/18 at 21:00 Magnesium Hydroxide (Milk Of Mag) 30 ml BID PRN PO CONSTIPATION; Start 10/13/18 at 21:30 Lactulose (Enulose) 20 gm DAILY PRN PO CONSTIPATION; Start 10/13/18 at 21:30 Bisacodyl (Dulcolax Supp) 10 mg DAILY PRN [place] CONSTIPATION; Start 10/13/18 at 21:30 Acetaminophen (Tylenol Tab) 1,000 mg Q6H PRN PO MILD PAIN(1-3)OR ELEVATED TEMP Last administered on 10/13/18 22:15; Admin Dose 1,000 MG; Start 10/13/18 at 22:00 Albuterol/ Ipratropium (Duoneb) 3 ml Q4H RESP THERAPY HHN Last administered on 10/14/18 17:10; Admin Dose 3 ML; Start 10/14/18 at 01:00 Apixaban (Eliquis) 2.5 mg BID PO Last administered on 10/14/18 09:07; Admin Dose 2.5 MG; Start 10/13/18 at 22:00 Atorvastatin Calcium (Lipitor) 40 mg DAILY@21 PO Last administered on 10/13/18 22:15; Admin Dose 40 MG; Start 10/13/18 at 22:00 Famotidine (Pepcid) 20 mg DAILY PO Last administered on 10/14/18 09:07; Admin Dose 20 MG; Start 10/14/18 at 09:00 Haloperidol (Haldol) 2 mg Q4H PRN IM AGITATION Last administered on 10/14/18 01:11; Admin Dose 2 MG; Start 10/13/18 at 22:00 Metoprolol Succinate (Toprol Xl) 50 mg DAILY PO ; Start 10/14/18 at 09:00 Mupirocin (Bactroban) 1 applic BID TOP Last administered on 10/14/18 09:08; Admin Dose 1 APPLIC; Start 10/13/18 at 22:00 Polyethylene Glycol (Miralax) 17 gm DAILY PO Last administered on 10/14/18 09:08; Admin Dose 17 GM; Start 10/14/18 at 09:00 Influenza Virus Vaccine Quadrival (Fluzone) 0.5 ml ONCE ONCE IM* ; Start 10/15/18 at 10:00; Stop 10/15/18 at 10:01 Sodium Chloride 1,000 ml @ 75 mls/hr [id number] IV Last administered on 10/14/18at 13:05; Admin Dose 75 MLS/HR; Start 10/14/18 at 09:00 Multivitamins Therapeutic (Theragran) 1 tab DAILY PO Last administered on 10/14/18at 15:50; Admin Dose 1 TAB; Start 10/14/18 at 13:30 Ascorbic Acid (Vitamin C) 250 mg BID PO ; Start 10/14/18 at 21:00 Zinc Sulfate (Zinc Sulfate) 220 mg DAILY PO Last administered on 10/14/18at 15:50; Admin Dose 220 MG; Start 10/14/18 at 13:30 Quetiapine Fumarate (Seroquel) 50 mg HS PO ; Start 10/14/18 at 21:00 Assessment/Plan Hospital Course (Demo Recall) hypoxic hypercapnic respiratory failure Congestive heart failure acute on chronic secondary systolic heart failure Heart block status post biV ICD pacer dependent History of hypertension Acute on chronic kidney disease Dyslipidemia Encephalopathy COPD and possible COPD exacerbation and possible pneumonia History of tracheostomy and oropharyngeal cancers Atrial fibrillation s/p Bacteremia: resolved now Recommendations: Antibiotic as per IM/ pulm recommendations. diuresis as tolerated. Continue respiratory care oxygen supplement. O2 as needed cont eliquis Not on TAYLOR inhibitor due to his renal failure. We will resume his ARB once okay from renal standpoint cont toprol BUT I will change to 25 bid CONT rehab as tolerated Thank. you for his referral we will continue to monitor with you. SHARONDA BRICENO MD [facility] SHARONDA BRICENO MD Oct 14, 2018 19:12
[2018-10-14 20:12] VITALS: BP 127/60; PULSE 70; RESP 18
[2018-10-14] MEDS ORDERED: QUETIAPINE 25 MG TAB PO SCH (21:00)
[2018-10-14] MEDS: SENNA TAB PO SCH (21:47)
[2018-10-14] MEDS: ASCORBIC ACID 250 MG TAB PO SCH (21:47)
[2018-10-14] MEDS: ATORVASTATIN 40 MG TAB PO SCH (21:47)
[2018-10-14] MEDS: METOPROLOL (XL) 25 MG TAB PO SCH (21:48)
[2018-10-15] MEDS: ALBUTEROL/IPRATROPIUM (NEB) 3 ML AMP HHN SCH ×6 (01:01→20:10)
[2018-10-15 02:00] VITALS: BP 124/60; PULSE 72; RESP 18
[2018-10-15 07:00] VITALS: BP 109/44; PULSE 69; RESP 20
--- NOTE | 2018-10-15 07:29 | PN ---
Date/Time of Note Date/Time of Note DATE: 10/15/18 TIME: 07:28 Subjective AWAKE ALERT NO C/O Objective Vital Signs Date Temp Pulse Resp B/P (MAP) Pulse Ox O2 O2 Flow FiO2 Time Delivery Rate 10/15/18 60 20 98 Aerosol 2.0 05:08 Mask 10/15/18 97.4 124/60 02:00 (81) Intake and Output 10/14/18 10/14/18 10/15/18 1515:00 23:00 07:00 IntakeIntake Total 1550 ml 1250 ml OutputOutput Total 600 ml 450 ml BalanceBalance 950 ml 800 ml Exam LUNGS CTA COR RRR R AKA CLOF MOD MOAX A BED MOB Results/Medications Result Diagram: 10/15/18 0624 10/14/18 0703 Results 24 hrs Laboratory Tests Test 10/15/18 06:24 White Blood Count 11.0 #H Red Blood Count 3.90 L Hemoglobin 10.6 L Hematocrit 34.3 L Mean Corpuscular Volume 87.9 Mean Corpuscular Hemoglobin 27.2 L Mean Corpuscular Hemoglobin Concent 30.9 L Red Cell Distribution Width 17.7 H Platelet Count 303 Mean Platelet Volume 10.6 H Immature Granulocytes % 0.300 Neutrophils % 72.9 Lymphocytes % 17.2 Monocytes % 8.3 Eosinophils % 0.8 Basophils % 0.5 Nucleated Red Blood Cells % 0.0 Immature Granulocytes # 0.030 Neutrophils # 8.0 H Lymphocytes # 1.9 Monocytes # 0.9 Eosinophils # 0.1 Basophils # 0.1 Nucleated Red Blood Cells # 0.0 Medications Current Medications Docusate Sodium (Colace) 100 mg BID PO Last administered on 10/14/18at 21:48; Admin Dose 100 MG; Start 10/14/18 at 09:00 Senna (Senokot) 1 tab HS PO Last administered on 10/14/18at 21:47; Admin Dose 1 TAB; Start 10/14/18 at 21:00 Magnesium Hydroxide (Milk Of Mag) 30 ml BID PRN PO CONSTIPATION; Start 10/13/18 at 21:30 Lactulose (Enulose) 20 gm DAILY PRN PO CONSTIPATION; Start 10/13/18 at 21:30 Bisacodyl (Dulcolax Supp) 10 mg DAILY PRN [place] CONSTIPATION; Start 10/13/18 at 21:30 Acetaminophen (Tylenol Tab) 1,000 mg Q6H PRN PO MILD PAIN(1-3)OR ELEVATED TEMP Last administered on 10/13/18 22:15; Admin Dose 1,000 MG; Start 10/13/18 at 22:00 Albuterol/ Ipratropium (Duoneb) 3 ml Q4H RESP THERAPY HHN Last administered on 10/15/18 05:08; Admin Dose 3 ML; Start 10/14/18 at 01:00 Apixaban (Eliquis) 2.5 mg BID PO Last administered on 10/14/18 21:47; Admin Dose 2.5 MG; Start 10/13/18 at 22:00 Atorvastatin Calcium (Lipitor) 40 mg DAILY@21 PO Last administered on 10/14/18 21:47; Admin Dose 40 MG; Start 10/13/18 at 22:00 Famotidine (Pepcid) 20 mg DAILY PO Last administered on 10/14/18 09:07; Admin Dose 20 MG; Start 10/14/18 at 09:00 Haloperidol (Haldol) 2 mg Q4H PRN IM AGITATION Last administered on 10/14/18 01:11; Admin Dose 2 MG; Start 10/13/18 at 22:00 Mupirocin (Bactroban) 1 applic BID TOP Last administered on 10/14/18 21:49; Admin Dose 1 APPLIC; Start 10/13/18 at 22:00 Polyethylene Glycol (Miralax) 17 gm DAILY PO Last administered on 10/14/18 09:08; Admin Dose 17 GM; Start 10/14/18 at 09:00 Influenza Virus Vaccine Quadrival (Fluzone) 0.5 ml ONCE ONCE IM* ; Start 10/15/18 at 10:00; Stop 10/15/18 at 10:01 Sodium Chloride 1,000 ml @ 75 mls/hr [id number] IV Last administered on 10/14/18 23:38; Admin Dose 75 MLS/HR; Start 10/14/18 at 09:00 Multivitamins Therapeutic (Theragran) 1 tab DAILY PO Last administered on 10/14/18 15:50; Admin Dose 1 TAB; Start 10/14/18 at 13:30 Ascorbic Acid (Vitamin C) 250 mg BID PO Last administered on 2/15/19at 21:47; Admin Dose 250 MG; Start 10/14/18 at 21:00 Zinc Sulfate (Zinc Sulfate) 220 mg DAILY PO Last administered on 10/14/18 15:50; Admin Dose 220 MG; Start 10/14/18 at 13:30 Quetiapine Fumarate (Seroquel) 50 mg HS PO Last administered on 10/14/18at 21:47; Admin Dose 50 MG; Start 10/14/18 at 21:00 Metoprolol Succinate (Toprol Xl) 25 mg BID PO Last administered on 10/14/18at 21:48; Admin Dose 25 MG; Start 10/14/18 at 21:00 Assessment/Plan Additional Assessment/Plan 1. CRITICAL ILLNESS MYOPATHY/Status post respiratory failure with trach in a history of patient with throat cancer.CONT THERAPEUTIC INTERVENTIONS 2. Status post sepsis. 3. Acute on chronic kidney injury. 4. Peripheral vascular disease. 5. Hypertension. 6. Hyperlipidemia. 7. COPD.MAINTAIN SATS >92% 8. History of right above the knee amputation. 9. History of coronary artery disease, CABG and ICD. 10. Impairments in self-care, mobility, cognition and dysphagia. YECENIA REA MD Oct 15, 2018 07:29
[2018-10-15] MEDS: FAMOTIDINE 20 MG TAB PO SCH (08:16)
[2018-10-15] MEDS: MULTIVITAMINS THERAPEUTIC TAB PO SCH (08:16)
[2018-10-15] MEDS: POLYETHYLENE GLYCOL 17 GM PACKET PO SCH (08:34)
[2018-10-15] MEDS: ASCORBIC ACID 250 MG TAB PO SCH (08:34)
[2018-10-15] MEDS: APIXABAN 5 MG TABLET PO SCH ×2 (08:34→20:23)
[2018-10-15] MEDS: MUPIROCIN 2% 22 GM OINT TOP SCH (08:34)
[2018-10-15] MEDS: DOCUSATE SODIUM 100 MG CAP PO SCH ×2 (08:34→20:22)
[2018-10-15] MEDS: ZINC SULFATE 220 MG CAP PO SCH (08:34)
[2018-10-15] MEDS: METOPROLOL (XL) 25 MG TAB PO SCH ×2 (08:35→20:23)
[2018-10-15 14:00] VITALS: BP 150/61; PULSE 70; RESP 20
[2018-10-15] MEDS: SOD CHLORIDE 0.9% 1,000 ML IV SCH (14:42)
--- NOTE | 2018-10-15 15:00 | CONS ---
Assessment/Plan Assessment/Plan Hospital Course (Demo Recall) ID PROGRESS NOTE CURRENT ABX: DAY # => OFF ABX 10/15/1824 10/15/18623 24H INTERVAL SUMMARY * Clinically stable on supplemental O2 via NC * No fevers, WBC elevated today MICRO/OTHER * 10/14/18 Urine Cx URINE CULTURE Preliminary Organism 1 ENTEROCOCCUS SPECIES COLONY COUNT <10,000 CFU/ml * 10/14/18 (-)MRSA PHYSICAL EXAMINATION: GENERAL: Afebrile, VSS HEENT: AT, NC, anicteric NECK: Supple, trach midline CHEST: Equal chest rise bilaterally, without dyspnea on observation HEART: Pulse RRR ABDOMEN: Soft / NT EXTREMITIES: Warm, dry SKIN: No rash, no diaphoresis ID ASSESSMENT 83 yo M admit with: 1. SIRS w/mild leukocytosis and Enterococcal bacteruria vs early UTI ? 2. Acute hypoxemic respiratory failure secondary to fluid overload COPD exacerbation, possible pneumonia==> completed abx 3. Status post left lower extremity cellulitis 4. History of peripheral vascular disease status post right BKA 5. Acute on chronic kidney disease 6. Dementia 7. 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 Hx of MRSA nares consolidation 10/04/18 (-)MRSA Nares ABX ALLERGIES: KNDA INVASIVES: PIV CURRENT ABX: DAY # => OFF ABX ID RECOMMENDATIONS/PLAN: 1. DC BActroban, DC isolation 2. Will err on side of caution and treat Enterococcal bacteruria as possible early uti w/Fosfomycin 3gm po x1 . Consultation Date/Type/Reason Admit Date/Time Oct 13, 2018 at 20:16 Initial Consult Date Date/Time of Note DATE: 10/15/18 TIME: 15:00 Exam/Review of Systems Exam Vitals Vital Signs Date Temp Pulse Resp B/P (MAP) Pulse Ox O2 O2 Flow FiO2 Time Delivery Rate 10/15/18 2.0 14:17 10/15/18 60 20 98 Nasal 09:36 Cannula 10/15/18 97.6 109/44 07:00 (65) Intake and Output 10/14/18 10/14/18 10/15/18 1515:00 23:00 07:00 IntakeIntake Total 1550 ml 1250 ml OutputOutput Total 600 ml 450 ml BalanceBalance 950 ml 800 ml Results Result Diagram: 10/15/1862310/15/18623 Results 24hrs Laboratory Tests Test 10/15/18 06:24 White Blood Count 11.0 #H Red Blood Count 3.90 L Hemoglobin 10.6 L Hematocrit 34.3 L Mean Corpuscular Volume 87.9 Mean Corpuscular Hemoglobin 27.2 L Mean Corpuscular Hemoglobin Concent 30.9 L Red Cell Distribution Width 17.7 H Platelet Count 303 Mean Platelet Volume 10.6 H Immature Granulocytes % 0.300 Neutrophils % 72.9 Lymphocytes % 17.2 Monocytes % 8.3 Eosinophils % 0.8 Basophils % 0.5 Nucleated Red Blood Cells % 0.0 Immature Granulocytes # 0.030 Neutrophils # 8.0 H Lymphocytes # 1.9 Monocytes # 0.9 Eosinophils # 0.1 Basophils # 0.1 Nucleated Red Blood Cells # 0.0 Sodium Level 140 Potassium Level 4.0 Chloride Level 100 Carbon Dioxide Level 28 Anion Gap 12 Blood Urea Nitrogen 94 H Creatinine 2.37 H Est Glomerular Filtrat Rate mL/min Glucose Level 98 Calcium Level 9.4 Phosphorus Level 5.8 H Magnesium Level 2.5 Medications Medication Current Medications Docusate Sodium (Colace) 100 mg BID PO Last administered on 10/15/18at 08:34; Admin Dose 100 MG; Start 10/14/18 at 09:00 Senna (Senokot) 1 tab HS PO Last administered on 10/14/18at 21:47; Admin Dose 1 TAB; Start 10/14/18 at 21:00 Magnesium Hydroxide (Milk Of Mag) 30 ml BID PRN PO CONSTIPATION; Start 10/13/18 at 21:30 Lactulose (Enulose) 20 gm DAILY PRN PO CONSTIPATION; Start 10/13/18 at 21:30 Bisacodyl (Dulcolax Supp) 10 mg DAILY PRN [place] CONSTIPATION; Start 10/13/18 at 21:30 Acetaminophen (Tylenol Tab) 1,000 mg Q6H PRN PO MILD PAIN(1-3)OR ELEVATED TEMP Last administered on 10/13/18at 22:15; Admin Dose 1,000 MG; Start 10/13/18 at 22:00 Albuterol/ Ipratropium (Duoneb) 3 ml Q4H RESP THERAPY HHN Last administered on 10/15/18at 09:36; Admin Dose 3 ML; Start 10/14/18 at 01:00 Apixaban (Eliquis) 2.5 mg BID PO Last administered on 10/15/18 08:34; Admin Dose 2.5 MG; Start 10/13/18 at 22:00 Atorvastatin Calcium (Lipitor) 40 mg DAILY@21 PO Last administered on 10/14/18 21:47; Admin Dose 40 MG; Start 10/13/18 at 22:00 Famotidine (Pepcid) 20 mg DAILY PO Last administered on 10/15/18 08:16; Admin Dose 20 MG; Start 10/14/18 at 09:00 Haloperidol (Haldol) 2 mg Q4H PRN IM AGITATION Last administered on 10/14/18 01:11; Admin Dose 2 MG; Start 10/13/18 at 22:00 Polyethylene Glycol (Miralax) 17 gm DAILY PO Last administered on 10/15/18 08:34; Admin Dose 17 GM; Start 10/14/18 at 09:00 Sodium Chloride 1,000 ml @ 40 mls/hr Q24H IV Last administered on 10/14/18 23:38; Admin Dose 75 MLS/HR; Start 10/14/18 at 09:00 Multivitamins Therapeutic (Theragran) 1 tab DAILY PO Last administered on 10/15/18 08:16; Admin Dose 1 TAB; Start 10/14/18 at 13:30 Ascorbic Acid (Vitamin C) 250 mg BID PO Last administered on 10/15/18 08:34; Admin Dose 250 MG; Start 10/14/18 at 21:00 Zinc Sulfate (Zinc Sulfate) 220 mg DAILY PO Last administered on 10/15/18 08:34; Admin Dose 220 MG; Start 10/14/18 at 13:30 Quetiapine Fumarate (Seroquel) 50 mg HS PO Last administered on 10/14/18 21:47; Admin Dose 50 MG; Start 10/14/18 at 21:00 Metoprolol Succinate (Toprol Xl) 25 mg BID PO Last administered on 10/15/18 08:35; Admin Dose 25 MG; Start 10/14/18 at 21:00 DON HEAD NP Oct 15, 2018 15:00
--- NOTE | 2018-10-15 15:29 | PN ---
DATE: 10/15/2018 SUBJECTIVE: The patient is stable, no events overnight. No fevers, chills, nausea, vomiting. OBJECTIVE: VITAL SIGNS: Blood pressure is 124/60, respiration 18, pulse 72, temperature 97.4. HEENT: Head is normocephalic. NECK: Supple. HEART: Regular rate. LUNGS: Show diminished breath sounds at the base. ABDOMEN: Soft, nontender to palpation. No rebound or guarding. EXTREMITIES: Negative for clubbing, cyanosis. Trace edema on the left lower extremity. Right below -knee amputation is noted. DERMATOLOGIC: No rashes. MUSCULOSKELETAL: No joint effusion. NEUROLOGIC: No change in exam. MEDICATIONS: Reviewed. LABORATORY DATA: From 10/15/2018 shows a white count of 11.0, hemoglobin of 10.6, platelet count is 303. The patient's BNP is pending. ASSESSMENT AND PLAN: 1. Acute hypoxic ischemic respiratory failure secondary to congestive heart failure exacerbation, ch ronic obstructive pulmonary disease and pneumonia. The patient has completed antibiotic course. Con tinue to monitor closely. Diuretics have been held due to worsening renal function. 2. Nonoliguric acute kidney injury on top of chronic kidney disease. The etiology is secondary to c ardiorenal syndrome, recent diuretic therapy. Diuretics have been held. The patient has been on gen tle intravenous hydration. We will follow up renal panel. We will deescalate intravenous fluids. M onitor volume status closely. 3. Acute systolic heart failure. The patient appears compensated. Monitor very closely on intraven ous fluids. Currently, diuretics are on hold. 4. Sepsis secondary to tracheobronchitis. The patient is completing antibiotic course. 5. Metabolic acidosis secondary to acute kidney injury. Continue to monitor. 6. Mineral bone disorder. Monitor calcium and phosphorus levels. 7. Acute encephalopathy. Etiology is toxic-metabolic. 8. Anxiety disorder, behavioral disorder. Continue Seroquel and Haldol. 9. Coronary artery disease, status post coronary artery bypass graft. Continue medical management. 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 Continue physical therapy. 11. Arrhythmia, status post implantable cardioverter-defibrillator placement. 12. Peripheral vascular disease, status post [id number] amputation. 13. Hypertension. Continue current blood pressure regimen. 14. Dyslipidemia. Continue statin therapy. 15. History of throat cancer, status post tracheostomy, with residual open ostium. 16. Gastrointestinal and deep vein thrombosis prophylaxis. Dictated By: RICHARD SMITH/GUS Conf#: [id number] DID#: [id number] CC: REMIGIO REA MD;*EndCC*
[2018-10-15] MEDS ORDERED: FOSFOMYCIN 3 GM PACKET PO ONE (16:00)
--- NOTE | 2018-10-15 18:04 | CONS ---
Consult Date/Type/Reason Admit Date/Time Oct 13, 2018 at 20:16 Initial Consult Date Type of Consultation: cv Date/Time of Note DATE: 10/15/18 TIME: 18:03 Subjective Cardiology follow-up progress note Subjective: Case discussed with staff. pt is in acute rehab now Patient denies any cp or sob to me and is less hypoxemic pt still with cough but stable now less weak now Objective: General: thin. in no acute distress HEENT: NC/AT. pupils are equal. round. NECK: Status post previous trach. no stridor. CV: RRR. systolic murmur; no gallop or rubs. PULM:+ mild rhonchi. GI: SOFT, NT, ND, no rebound or guarding Extremity: mild left LE edema. Status post right AKA neuro: awake and alert. Oriented to person and place Psych: Calm now rectal: deferred : normal Chest x-ray 10/05/2018 shows: Interstitial infiltrate/edema are moderately improved. Mild improvement in bibasilar alveolar infiltrates. Minimal bilateral pleural effusions are unchanged. Chest x-ray 10/10/2018 shows: 1. Slightly improved pulmonary edema. 2. No other change from the 10/08/2018 chest radiograph. Objective Vitals Vital Signs Date Temp Pulse Resp B/P (MAP) Pulse Ox O2 O2 Flow FiO2 Time Delivery Rate 10/15/18 2.0 17:34 10/15/18 68 20 98 Nasal 17:34 Cannula 10/15/18 97.3 150/61 14:00 (90) Intake and Output 10/14/18 10/14/18 10/15/18 1515:00 23:00 07:00 IntakeIntake Total 1550 ml 1250 ml OutputOutput Total 600 ml 450 ml BalanceBalance 950 ml 800 ml Results/Medications Result Diagram: 10/15/18 0624 10/15/18 0624 Results 24 hrs Laboratory Tests Test 10/15/18 06:24 White Blood Count 11.0 #H Red Blood Count 3.90 L Hemoglobin 10.6 L Hematocrit 34.3 L Mean Corpuscular Volume 87.9 Mean Corpuscular Hemoglobin 27.2 L Mean Corpuscular Hemoglobin Concent 30.9 L Red Cell Distribution Width 17.7 H Platelet Count 303 Mean Platelet Volume 10.6 H Immature Granulocytes % 0.300 Neutrophils % 72.9 Lymphocytes % 17.2 Monocytes % 8.3 Eosinophils % 0.8 Basophils % 0.5 Nucleated Red Blood Cells % 0.0 Immature Granulocytes # 0.030 Neutrophils # 8.0 H Lymphocytes # 1.9 Monocytes # 0.9 Eosinophils # 0.1 Basophils # 0.1 Nucleated Red Blood Cells # 0.0 Sodium Level 140 Potassium Level 4.0 Chloride Level 100 Carbon Dioxide Level 28 Anion Gap 12 Blood Urea Nitrogen 94 H Creatinine 2.37 H Est Glomerular Filtrat Rate mL/min Glucose Level 98 Calcium Level 9.4 Phosphorus Level 5.8 H Magnesium Level 2.5 Home Meds Active Scripts Ibuprofen* (Motrin*) 400 Mg Tab, 400 MG PO Q8, #30 TAB Prov:SAFIA LUGO MD 12/12/17 Hydrocodone/Acetaminophen ([place] 5-325 Tablet) 1 Each Tablet, 1 TAB PO Q6H PRN for PAIN, #20 TAB Prov:SAFIA LUGO MD 12/12/17 Reported Medications Aspirin (Low Dose Aspirin) 81 Mg Tablet.dr, 81 MG PO DAILY, #30 TAB 12/01/16 Metoprolol Succinate* (Toprol XL*) 50 Mg Tab.er.24h, 50 MG PO DAILY, TAB 05/13/15 Losartan Potassium* (Losartan Potassium*) 50 Mg Tablet, 50 MG PO DAILY, TAB 05/13/15 Atorvastatin* (Atorvastatin*) 40 Mg Tablet, 40 MG PO HS, TAB 05/13/15 Bumetanide* (Bumex*) 2 Mg Tab, 2 MG PO OD 11/15/12 Medications Current Medications Docusate Sodium (Colace) 100 mg BID PO Last administered on 10/15/18at 08:34; Admin Dose 100 MG; Start 10/14/18 at 09:00 Senna (Senokot) 1 tab HS PO Last administered on 10/14/18at 21:47; Admin Dose 1 TAB; Start 10/14/18 at 21:00 Magnesium Hydroxide (Milk Of Mag) 30 ml BID PRN PO CONSTIPATION; Start 10/13/18 at 21:30 Lactulose (Enulose) 20 gm DAILY PRN PO CONSTIPATION; Start 10/13/18 at 21:30 Bisacodyl (Dulcolax Supp) 10 mg DAILY PRN [place] CONSTIPATION; Start 10/13/18 at 21:30 Acetaminophen (Tylenol Tab) 1,000 mg Q6H PRN PO MILD PAIN(1-3)OR ELEVATED TEMP Last administered on 10/13/18 22:15; Admin Dose 1,000 MG; Start 10/13/18 at 22:00 Albuterol/ Ipratropium (Duoneb) 3 ml Q4H RESP THERAPY HHN Last administered on 10/15/18 17:34; Admin Dose 3 ML; Start 10/14/18 at 01:00 Apixaban (Eliquis) 2.5 mg BID PO Last administered on 10/15/18 08:34; Admin Dose 2.5 MG; Start 10/13/18 at 22:00 Atorvastatin Calcium (Lipitor) 40 mg DAILY@21 PO Last administered on 10/14/18 21:47; Admin Dose 40 MG; Start 10/13/18 at 22:00 Famotidine (Pepcid) 20 mg DAILY PO Last administered on 10/15/18 08:16; Admin Dose 20 MG; Start 10/14/18 at 09:00 Haloperidol (Haldol) 2 mg Q4H PRN IM AGITATION Last administered on 10/14/18 01:11; Admin Dose 2 MG; Start 10/13/18 at 22:00 Polyethylene Glycol (Miralax) 17 gm DAILY PO Last administered on 10/15/18 08:34; Admin Dose 17 GM; Start 10/14/18 at 09:00 Sodium Chloride 1,000 ml @ 40 mls/hr Q24H IV Last administered on 10/14/18 23:38; Admin Dose 75 MLS/HR; Start 10/14/18 at 09:00 Multivitamins Therapeutic (Theragran) 1 tab DAILY PO Last administered on 10/15/18 08:16; Admin Dose 1 TAB; Start 10/14/18 at 13:30 Ascorbic Acid (Vitamin C) 250 mg BID PO Last administered on 10/15/18 08:34; Admin Dose 250 MG; Start 10/14/18 at 21:00 Zinc Sulfate (Zinc Sulfate) 220 mg DAILY PO Last administered on 10/15/18 08:34; Admin Dose 220 MG; Start 10/14/18 at 13:30 Quetiapine Fumarate (Seroquel) 50 mg HS PO Last administered on 2/15/19at 21:47; Admin Dose 50 MG; Start 10/14/18 at 21:00 Metoprolol Succinate (Toprol Xl) 25 mg BID PO Last administered on 10/15/18at 08:35; Admin Dose 25 MG; Start 10/14/18 at 21:00 Assessment/Plan Hospital Course (Demo Recall) hypoxic hypercapnic respiratory failure Congestive heart failure 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 Continue respiratory care oxygen supplement. O2 as needed cont eliquis Not on TAYLOR inhibitor due to his renal failure. We will resume his ARB once okay from renal standpoint cont toprol 25 bid CONT rehab as tolerated Thank. you for his referral we will continue to monitor with you. SHARONDA BRICENO MD [facility] SHARONDA BRICENO MD Oct 15, 2018 18:04
[2018-10-15 19:26] VITALS: BP 148/58; PULSE 67; RESP 20
[2018-10-15] MEDS: ATORVASTATIN 40 MG TAB PO SCH (20:22)
[2018-10-15] MEDS: QUETIAPINE 25 MG TAB PO SCH (20:23)
[2018-10-15] MEDS: SENNA TAB PO SCH (20:23)
[2018-10-15] MEDS: HALOPERIDOL 5 MG INJ IM PRN (21:14)
[2018-10-16] MEDS: ALBUTEROL/IPRATROPIUM (NEB) 3 ML AMP HHN SCH ×6 (01:38→20:52)
[2018-10-16 02:00] VITALS: BP 128/65; PULSE 72; RESP 18
[2018-10-16 07:00] VITALS: BP 138/63; PULSE 70; RESP 18
[2018-10-16] MEDS: ASCORBIC ACID 250 MG TAB PO SCH (09:18)
[2018-10-16] MEDS: BUMETANIDE 1 MG TAB PO SCH (09:18)
[2018-10-16] MEDS: DOCUSATE SODIUM 100 MG CAP PO SCH ×2 (09:18→21:00)
[2018-10-16] MEDS: FAMOTIDINE 20 MG TAB PO SCH (09:18)
[2018-10-16] MEDS: APIXABAN 5 MG TABLET PO SCH ×2 (09:18→20:06)
[2018-10-16] MEDS: MULTIVITAMINS THERAPEUTIC TAB PO SCH (09:18)
[2018-10-16] MEDS: ZINC SULFATE 220 MG CAP PO SCH (09:18)
[2018-10-16] MEDS: METOPROLOL (XL) 25 MG TAB PO SCH ×2 (09:30→20:07)
[2018-10-16] MEDS: POLYETHYLENE GLYCOL 17 GM PACKET PO SCH (09:30)
--- NOTE | 2018-10-16 11:34 | PN ---
DATE: 10/16/2018 SUBJECTIVE: The patient is stable, no events overnight. No fevers, chills, nausea, vomiting. OBJECTIVE: VITAL SIGNS: Blood pressure is 128/65, respiration 18, pulse 72, temperature 97.8. HEENT: Head is normocephalic. NECK: Supple. HEART: Regular rate. LUNGS: Show diminished breath sounds at the base. ABDOMEN: Soft, nontender to palpation without rebound or guarding. EXTREMITIES: Negative for clubbing, cyanosis. Positive trace edema on the left lower extremity. DERMATOLOGIC: No rashes. MUSCULOSKELETAL: No joint effusions. NEUROLOGIC: No change in exam. MEDICATIONS: The patient's medications have been reviewed. LABORATORY DATA: Shows sodium 140, potassium 4.1, BUN 75, creatinine 1.97. White count 9.5, hemoglo bin 9.6, platelet count is 304. ASSESSMENT AND PLAN: 1. Acute hypoxemic respiratory failure secondary to congestive heart failure exacerbation, COPD. Th e patient has completed antibiotic course. Clinically improving, currently stable on nasal cannula. Continue to monitor closely. 2. Nonoliguric acute kidney injury on top of chronic kidney disease. Etiology is secondary to hemod ynamics, cardiorenal syndrome. The patient's renal function has improved after fluid challenge and h olding diuretic therapy. We will monitor renal function closely. Will consider resuming diuretic th erapy if renal functions remain stable. 3. Acute systolic heart failure. The patient appears compensated. Will likely resume diuretic ther apy if renal function remains stable. IV fluids have been discontinued. 4. Sepsis secondary to tracheal bronchitis. The patient has completed an antibiotic course. 5. Metabolic acidosis secondary to acute kidney injury. Continue to monitor. 6. Mineral bone disorder, monitor calcium and phosphorus levels. 7. Acute encephalopathy, etiology toxic metabolic. 8. Anxiety disorder. Continue Seroquel and Haldol. 9. Coronary artery disease, status post coronary artery bypass graft. Continue medical management. 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 Continue physical therapy and occupational therapy, continue ambulation of the patient. 11. Arrhythmia, status post ICD placement. 12. Peripheral vascular disease status post below knee amputation. 13. Hypertension. Continue current blood pressure regimen. 14. Dyslipidemia. Continue statin therapy. 15. History of throat cancer, status post tracheostomy with residual open ostium. 16. Gastrointestinal and deep vein thrombosis prophylaxis. Dictated By: RICHARD CASTLE DO NR/NTS Conf#: [id number] DID#: [id number] CC: REMIGIO REA MD;*EndCC*
[2018-10-16 14:00] VITALS: BP 128/59; PULSE 68; RESP 18
--- NOTE | 2018-10-16 16:39 | CONS ---
Consult Date/Type/Reason Admit Date/Time Oct 13, 2018 at 20:16 Initial Consult Date Type of Consultation: cv Date/Time of Note DATE: 10/16/18 TIME: 16:38 Subjective Cardiology follow-up progress note Subjective: Case discussed with staff. Patient denies any cp or sob to me and is less hypoxemic pt still with cough but stable now Has been cooperative rehab Objective: General: thin. in no acute distress HEENT: NC/AT. pupils are equal. round. NECK: Status post previous trach. no stridor. CV: RRR. systolic murmur; no gallop or rubs. PULM:+ mild rhonchi. GI: SOFT, NT, ND, no rebound or guarding Extremity: mild left LE edema. Status post right AKA neuro: awake and alert. Oriented to person and place Psych: Calm now rectal: deferred : normal Chest x-ray 10/05/2018 shows: Interstitial infiltrate/edema are moderately improved. Mild improvement in bibasilar alveolar infiltrates. Minimal bilateral pleural effusions are unchanged. Chest x-ray 10/10/2018 shows: 1. Slightly improved pulmonary edema. 2. No other change from the 10/08/2018 chest radiograph. Objective Vitals Vital Signs Date Temp Pulse Resp B/P (MAP) Pulse Ox O2 O2 Flow FiO2 Time Delivery Rate 10/16/18 2.0 15:23 10/16/18 97.8 68 18 128/59 100 Room Air 14:00 (82) Intake and Output 10/15/18 10/15/18 10/16/18 1515:00 23:00 07:00 IntakeIntake Total 1225 ml 650 ml OutputOutput Total 450 ml BalanceBalance 775 ml 650 ml Results/Medications Result Diagram: 10/16/18 0617 10/16/18 0617 Results 24 hrs Laboratory Tests Test 10/16/18 06:17 White Blood Count 9.5 Red Blood Count 3.54 L Hemoglobin 9.6 L Hematocrit 30.7 L Mean Corpuscular Volume 86.7 Mean Corpuscular Hemoglobin 27.1 L Mean Corpuscular Hemoglobin Concent 31.3 L Red Cell Distribution Width 17.3 H Platelet Count 304 Mean Platelet Volume 10.4 Immature Granulocytes % 0.500 H Neutrophils % 69.2 Lymphocytes % 19.0 Monocytes % 9.1 Eosinophils % 1.7 Basophils % 0.5 Nucleated Red Blood Cells % 0.0 Immature Granulocytes # 0.050 H Neutrophils # 6.6 Lymphocytes # 1.8 Monocytes # 0.9 Eosinophils # 0.2 Basophils # 0.1 Nucleated Red Blood Cells # 0.0 Sodium Level 140 Potassium Level 4.1 Chloride Level 98 Carbon Dioxide Level 30 Anion Gap 12 Blood Urea Nitrogen 75 H Creatinine 1.97 H Est Glomerular Filtrat Rate mL/min Glucose Level 98 Calcium Level 9.3 Phosphorus Level 3.6 # Magnesium Level 2.3 Home Meds Active Scripts Ibuprofen* (Motrin*) 400 Mg Tab, 400 MG PO Q8, #30 TAB Prov:SAFIA LUGO MD 12/12/17 Hydrocodone/Acetaminophen ([place] 5-325 Tablet) 1 Each Tablet, 1 TAB PO Q6H PRN for PAIN, #20 TAB Prov:SAFIA LUGO MD 12/12/17 Reported Medications Aspirin (Low Dose Aspirin) 81 Mg Tablet.dr, 81 MG PO DAILY, #30 TAB 12/01/16 Metoprolol Succinate* (Toprol XL*) 50 Mg Tab.er.24h, 50 MG PO DAILY, TAB 05/13/15 Losartan Potassium* (Losartan Potassium*) 50 Mg Tablet, 50 MG PO DAILY, TAB 05/13/15 Atorvastatin* (Atorvastatin*) 40 Mg Tablet, 40 MG PO HS, TAB 05/13/15 Bumetanide* (Bumex*) 2 Mg Tab, 2 MG PO OD 11/15/12 Medications Current Medications Docusate Sodium (Colace) 100 mg BID PO Last administered on 10/16/18at 09:18; Admin Dose 100 MG; Start 10/14/18 at 09:00 Senna (Senokot) 1 tab HS PO Last administered on 10/15/18at 20:23; Admin Dose 1 TAB; Start 10/14/18 at 21:00 Magnesium Hydroxide (Milk Of Mag) 30 ml BID PRN PO CONSTIPATION; Start 10/13/18 at 21:30 Lactulose (Enulose) 20 gm DAILY PRN PO CONSTIPATION; Start 10/13/18 at 21:30 Bisacodyl (Dulcolax Supp) [address] CONSTIPATION; Start 10/13/18 at 21:30 Acetaminophen (Tylenol Tab) 1,000 mg Q6H PRN PO MILD PAIN(1-3)OR ELEVATED TEMP Last administered on 10/13/18 22:15; Admin Dose 1,000 MG; Start 10/13/18 at 22:00 Albuterol/ Ipratropium (Duoneb) 3 ml Q4H RESP THERAPY HHN Last administered on 10/16/18 06:00; Admin Dose 3 ML; Start 10/14/18 at 01:00 Apixaban (Eliquis) 2.5 mg BID PO Last administered on 10/16/18 09:18; Admin Dose 2.5 MG; Start 10/13/18 at 22:00 Atorvastatin Calcium (Lipitor) 40 mg DAILY@21 PO Last administered on 10/15/18 20:22; Admin Dose 40 MG; Start 10/13/18 at 22:00 Famotidine (Pepcid) 20 mg DAILY PO Last administered on 10/16/18 09:18; Admin Dose 20 MG; Start 10/14/18 at 09:00 Haloperidol (Haldol) 2 mg Q4H PRN IM AGITATION Last administered on 10/15/18 21:14; Admin Dose 2 MG; Start 10/13/18 at 22:00 Polyethylene Glycol (Miralax) 17 gm DAILY PO Last administered on 10/16/18 09:30; Admin Dose 17 GM; Start 10/14/18 at 09:00 Multivitamins Therapeutic (Theragran) 1 tab DAILY PO Last administered on 10/16/18 09:18; Admin Dose 1 TAB; Start 10/14/18 at 13:30 Zinc Sulfate (Zinc Sulfate) 220 mg DAILY PO Last administered on 10/16/18 09:18; Admin Dose 220 MG; Start 10/14/18 at 13:30 Quetiapine Fumarate (Seroquel) 50 mg HS PO Last administered on 10/15/18 20:23; Admin Dose 50 MG; Start 10/14/18 at 21:00 Metoprolol Succinate (Toprol Xl) 25 mg BID PO Last administered on 10/16/18 09:30; Admin Dose 25 MG; Start 10/14/18 at 21:00 Ascorbic Acid (Vitamin C) 250 mg DAILY PO Last administered on 10/16/18 09:18; Admin Dose 250 MG; Start 10/16/18 at 09:00 Bumetanide (Bumex) 1 mg DAILY PO Last administered on 10/16/18at 09:18; Admin Dose 1 MG; Start 10/16/18 at 09:00 Assessment/Plan Hospital Course (Demo Recall) hypoxic hypercapnic respiratory failure Congestive heart failure 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 ON BUMEX NOW Continue respiratory care oxygen supplement. O2 as needed cont eliquis Not on TAYLOR inhibitor due to his renal failure. We will resume his ARB once okay from renal standpoint cont toprol 25 bid CONT rehab as tolerated Thank. you for his referral we will continue to monitor with you. SHARONDA BRICENO MD [facility] SHARONDA BRICENO MD Oct 16, 2018 16:39
--- NOTE | 2018-10-16 16:45 | CONS ---
Assessment/Plan Assessment/Plan Hospital Course (Demo Recall) ID PROGRESS NOTE CURRENT ABX: DAY # => FOSFOMYCIN po x1 10/15/17 10/16/1861610/16/18 0617 24H INTERVAL SUMMARY * Resting in bed, awake, alert, w/supplemental O2 via NC, prior trach decannulation * No fevers, WBC normalized today was elevated mildly yesterday * s/p Fosfomycin 3G x1 po yesterday for concern enterococcal UTI -- * Patient gets confused/sundowning at night -- given Haldol last night -- today he is resting and calm MICRO/OTHER * 10/14/18 (-)MRSA * 10/14/18 Urine Cx URINE CULTURE URINE CULTURE Final Organism 1 ENTEROCOCCUS SPECIES COLONY COUNT <10,000 CFU/ml ENT SPS M.I.C. RX --------- --- AMPICILLIN <=2 S CIPROFLOXACIN 1 S LEVOFLOXACIN 0.5 S NITROFURANTOIN <=16 S PENICILLIN-G 2 S VANCOMYCIN 1 S PHYSICAL EXAMINATION: GENERAL: Afebrile, VSS HEENT: AT, NC, anicteric NECK: Supple, DSG over prior trach decannulation CHEST: Equal chest rise bilaterally, without dyspnea on observation HEART: Pulse RRR ABDOMEN: Soft / NT EXTREMITIES: Warm, dry SKIN: No rash, no diaphoresis ID ASSESSMENT 83 yo M admit with: 1. SIRS w/mild leukocytosis and Enterococcal bacteruria vs early UTI => TREATED w/ FOSFOMYCIN po x1 10/15/17 2. Acute hypoxemic respiratory failure secondary to fluid overload COPD exacerbation, possible pneumonia==> completed abx * Hx of prior trach -- now decannulated 3. Status post left lower extremity cellulitis 4. History of peripheral vascular disease status post right BKA 5. Acute on chronic kidney disease 6. Dementia 7. 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 Hx of MRSA nares consolidation 10/04/18 => TREATED w/ repeat 10/14/18 (-)MRSA (-)MRSA Nares ABX ALLERGIES: KNDA INVASIVES: PIV CURRENT ABX: DAY # =>s/p FOSFOMYCIN po x1 10/15/17 ID RECOMMENDATIONS/PLAN: 1. DC Bactroban, DC isolation 2. Enterococcal bacteruria vs low colony count UTI was treated yesterday w/Fosfomycin 3gm po x1 3. Continue to monitor OFF ABX . Consultation Date/Type/Reason Admit Date/Time Oct 13, 2018 at 20:16 Initial Consult Date Date/Time of Note DATE: 10/16/18 TIME: 16:38 Exam/Review of Systems Exam Vitals Vital Signs Date Temp Pulse Resp B/P (MAP) Pulse Ox O2 O2 Flow FiO2 Time Delivery Rate 10/16/18 2.0 15:23 10/16/18 97.8 68 18 128/59 100 Room Air 14:00 (82) Intake and Output 10/15/18 10/15/18 10/16/18 1515:00 23:00 07:00 IntakeIntake Total 1225 ml 650 ml OutputOutput Total 450 ml BalanceBalance 775 ml 650 ml Results Result Diagram: 10/16/18 0617 10/16/18 0617 Results 24hrs Laboratory Tests Test 10/16/18 06:17 White Blood Count 9.5 Red Blood Count 3.54 L Hemoglobin 9.6 L Hematocrit 30.7 L Mean Corpuscular Volume 86.7 Mean Corpuscular Hemoglobin 27.1 L Mean Corpuscular Hemoglobin Concent 31.3 L Red Cell Distribution Width 17.3 H Platelet Count 304 Mean Platelet Volume 10.4 Immature Granulocytes % 0.500 H Neutrophils % 69.2 Lymphocytes % 19.0 Monocytes % 9.1 Eosinophils % 1.7 Basophils % 0.5 Nucleated Red Blood Cells % 0.0 Immature Granulocytes # 0.050 H Neutrophils # 6.6 Lymphocytes # 1.8 Monocytes # 0.9 Eosinophils # 0.2 Basophils # 0.1 Nucleated Red Blood Cells # 0.0 Sodium Level 140 Potassium Level 4.1 Chloride Level 98 Carbon Dioxide Level 30 Anion Gap 12 Blood Urea Nitrogen 75 H Creatinine 1.97 H Est Glomerular Filtrat Rate mL/min Glucose Level 98 Calcium Level 9.3 Phosphorus Level 3.6 # Magnesium Level 2.3 Medications Medication Current Medications Docusate Sodium (Colace) 100 mg BID PO Last administered on 10/16/18at 09:18; Admin Dose 100 MG; Start 10/14/18 at 09:00 Senna (Senokot) 1 tab HS PO Last administered on 10/15/18at 20:23; Admin Dose 1 TAB; Start 10/14/18 at 21:00 Magnesium Hydroxide (Milk Of Mag) 30 ml BID PRN PO CONSTIPATION; Start 10/13/18 at 21:30 Lactulose (Enulose) 20 gm DAILY PRN PO CONSTIPATION; Start 10/13/18 at 21:30 Bisacodyl (Dulcolax Supp) 10 mg DAILY PRN [place] CONSTIPATION; Start 10/13/18 at 21:30 Acetaminophen (Tylenol Tab) 1,000 mg Q6H PRN PO MILD PAIN(1-3)OR ELEVATED TEMP Last administered on 10/13/18 22:15; Admin Dose 1,000 MG; Start 10/13/18 at 22:00 Albuterol/ Ipratropium (Duoneb) 3 ml Q4H RESP THERAPY HHN Last administered on 10/16/18 06:00; Admin Dose 3 ML; Start 10/14/18 at 01:00 Apixaban (Eliquis) 2.5 mg BID PO Last administered on 10/16/18 09:18; Admin Dose 2.5 MG; Start 10/13/18 at 22:00 Atorvastatin Calcium (Lipitor) 40 mg DAILY@21 PO Last administered on 10/15/18 20:22; Admin Dose 40 MG; Start 10/13/18 at 22:00 Famotidine (Pepcid) 20 mg DAILY PO Last administered on 10/16/18 09:18; Admin Dose 20 MG; Start 10/14/18 at 09:00 Haloperidol (Haldol) 2 mg Q4H PRN IM AGITATION Last administered on 10/15/18 21:14; Admin Dose 2 MG; Start 10/13/18 at 22:00 Polyethylene Glycol (Miralax) 17 gm DAILY PO Last administered on 10/16/18 09:30; Admin Dose 17 GM; Start 10/14/18 at 09:00 Multivitamins Therapeutic (Theragran) 1 tab DAILY PO Last administered on 10/16/18 09:18; Admin Dose 1 TAB; Start 10/14/18 at 13:30 Zinc Sulfate (Zinc Sulfate) 220 mg DAILY PO Last administered on 10/16/18 09:18; Admin Dose 220 MG; Start 10/14/18 at 13:30 Quetiapine Fumarate (Seroquel) 50 mg HS PO Last administered on 10/15/18 20:23; Admin Dose 50 MG; Start 10/14/18 at 21:00 Metoprolol Succinate (Toprol Xl) 25 mg BID PO Last administered on 10/16/18at 09:30; Admin Dose 25 MG; Start 10/14/18 at 21:00 Ascorbic Acid (Vitamin C) 250 mg DAILY PO Last administered on 10/16/18 09:18; Admin Dose 250 MG; Start 10/16/18 at 09:00 Bumetanide (Bumex) 1 mg DAILY PO Last administered on 10/16/18at 09:18; Admin Dose 1 MG; Start 10/16/18 at 09:00 DON HEAD NP Oct 16, 2018 16:45
[2018-10-16] MEDS: HALOPERIDOL 5 MG INJ IM PRN (17:28)
[2018-10-16 20:00] VITALS: BP 140/65; RESP 18
[2018-10-16] MEDS: ATORVASTATIN 40 MG TAB PO SCH (20:05)
[2018-10-16] MEDS: QUETIAPINE 25 MG TAB PO SCH (20:06)
[2018-10-16] MEDS: ACETAMINOPHEN 500 MG TAB PO PRN (20:06)
[2018-10-16] MEDS: SENNA TAB PO SCH (21:00)
[2018-10-17] MEDS: ALBUTEROL/IPRATROPIUM (NEB) 3 ML AMP HHN SCH ×6 (01:29→20:25)
[2018-10-17 07:30] VITALS: BP 137/62; PULSE 70; RESP 20
[2018-10-17] MEDS: BUMETANIDE 1 MG TAB PO SCH (08:39)
[2018-10-17] MEDS: DOCUSATE SODIUM 100 MG CAP PO SCH ×2 (08:39→21:00)
[2018-10-17] MEDS: ASCORBIC ACID 250 MG TAB PO SCH (08:39)
[2018-10-17] MEDS: ZINC SULFATE 220 MG CAP PO SCH (08:40)
[2018-10-17] MEDS: FAMOTIDINE 20 MG TAB PO SCH (08:40)
[2018-10-17] MEDS: APIXABAN 5 MG TABLET PO SCH ×2 (08:40→20:17)
[2018-10-17] MEDS: MULTIVITAMINS THERAPEUTIC TAB PO SCH (08:40)
[2018-10-17] MEDS: POLYETHYLENE GLYCOL 17 GM PACKET PO SCH (08:41)
[2018-10-17] MEDS: METOPROLOL (XL) 25 MG TAB PO SCH ×2 (08:41→20:19)
--- NOTE | 2018-10-17 09:08 | PN ---
DATE: 10/17/2018 FU NOTE/ REHAB CROSS COVER SUBJECTIVE: The patient is stable. No events overnight. The patient is Moderate assist 25 feet wheelchair propulsion, 2 person assist for max transfer with max A OBJECTIVE: VITAL SIGNS: Blood pressure is 140/65, respirations 18, pulse 73, temperature 98.0. HEENT: Head is normocephalic. NECK: Supple. HEART: Regular rate. LUNGS: Show diminished breath sounds at base. ABDOMEN: Soft, nontender to palpation. No rebound or guarding. EXTREMITIES: Negative for clubbing, cyanosis. No edema. DERMATOLOGIC: No rashes. MUSCULOSKELETAL: No joint effusion. NEUROLOGIC: No change in exam. MEDICATIONS: Reviewed. LABORATORY DATA: Shows sodium 141, potassium 4.7, BUN 76, creatinine 2.09. White count 8.2, hemoglobin 10.4, platelet count is 293. ASSESSMENT AND PLAN: 1. Acute hypoxic respiratory failure secondary to congestive heart failure exacerbation, chronic obstructive pulmonary disease. The patient has completed antibiotic course. The patient is clinically improving. Continue current treatment plan. 2. Nonoliguric acute kidney injury on top of chronic kidney disease. Etiology is secondary to hemodynamics, cardiorenal syndrome. Renal function is improving. Diuretics have been adjusted. Continue to monitor. 3. Acute systolic heart failure. The patient appears compensated. Continue medical management. 4. Sepsis secondary to tracheobronchitis. The patient has completed antibiotic course. 5. Metabolic acidosis, resolved. 6. Mineral bone disorder. Monitor calcium and phosphorus levels. 7. Encephalopathy, toxic-metabolic, improving. 8. Anxiety disorder. Continue Seroquel and Haldol. 9. Coronary artery disease, status post coronary artery bypass grafting. Continue medical management. 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 Continue physical therapy, occupational therapy. Continue ambulation of the patient. 11. Arrhythmia, status post implantable cardioverter-defibrillator placement. 12. Hypertension. Continue current blood pressure regimen. 13. Dyslipidemia, Continue statin therapy. 14. Gastrointestinal and deep vein thrombosis prophylaxis. 15. History of throat cancer. Dictated By: RICHARD SMITH/GUS Conf#: [id number] DID#: [id number] MTDD
[2018-10-17] MEDS: ACETAMINOPHEN 500 MG TAB PO PRN ×2 (09:54→21:24)
[2018-10-17] MEDS: DICLOFENAC SODIUM 1% GEL 100 GM TUBE TP SCH ×3 (12:07→20:20)
[2018-10-17 14:00] VITALS: BP 144/67; PULSE 70; RESP 20
--- NOTE | 2018-10-17 17:30 | CONS ---
Assessment/Plan Assessment/Plan Hospital Course (Demo Recall) ID PROGRESS NOTE CURRENT ABX: DAY #2 =>OFF ABX * S/P FOSFOMYCIN po x1 10/15/17 for concern Enterococcal UTI 10/17/18 0649 10/17/18 0649 24H INTERVAL SUMMARY * 83 yo M w/suspected dementia w/anxiety and impulsiveness per notes -- requires anxiolytics PRN * Patient gets confused/sundowning at night -- PRN Haldol * Currently calm, resting in bed, awake, alert, w/supplemental O2 via NC, prior trach decannulation * s/p Fosfomycin 3G x1 po yesterday for concern enterococcal UTI -- MICRO/OTHER * 10/14/18 (-)MRSA * 10/14/18 Urine Cx URINE CULTURE URINE CULTURE Final Organism 1 ENTEROCOCCUS SPECIES COLONY COUNT <10,000 CFU/ml ENT SPS M.I.C. RX --------- --- AMPICILLIN <=2 S CIPROFLOXACIN 1 S LEVOFLOXACIN 0.5 S NITROFURANTOIN <=16 S PENICILLIN-G 2 S VANCOMYCIN 1 S PHYSICAL EXAMINATION: GENERAL: Afebrile, VSS HEENT: AT, NC, anicteric NECK: Supple, DSG over prior trach decannulation CHEST: Equal chest rise bilaterally, without dyspnea on observation HEART: Pulse RRR ABDOMEN: Soft / NT EXTREMITIES: Warm, dry SKIN: No rash, no diaphoresis ID ASSESSMENT 83 yo M admit with: 1. SIRS w/mild leukocytosis and Enterococcal bacteruria vs early UTI => TREATED w/ FOSFOMYCIN po x1 10/15/17 2. Acute hypoxemic respiratory failure secondary to fluid overload COPD exacerbation, possible pneumonia==> completed abx 3. 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 4. Ischemic CMY -- s/p acute systolic HF exacerbation * ICD in place w/hx of cardiac arrhythmia 6. History of peripheral vascular disease status post right BKA 7. Status post left lower extremity cellulitis superimposed on venous stasis edema 8. Acute on chronic kidney disease 9. Hx of MRSA nares consolidation 10/04/18 => TREATED w/ repeat 10/14/18 (-)MRSA (-)MRSA Nares ABX ALLERGIES: KNDA INVASIVES: PIV CURRENT ABX: DAY #2 =>OFF ABX * S/P FOSFOMYCIN po x1 2/16/18 for concern Enterococcal UTI ID RECOMMENDATIONS/PLAN: 1. DC Bactroban, DC isolation 2. s/p Enterococcal bacteruria vs low colony count UTI was treated yesterday w/Fosfomycin 3gm po x1 3. Continue to monitor OFF ABX . Consultation Date/Type/Reason Admit Date/Time Oct 13, 2018 at 20:16 Initial Consult Date Date/Time of Note DATE: 10/17/18 TIME: 17:23 Exam/Review of Systems Exam Vitals Vital Signs Date Temp Pulse Resp B/P (MAP) Pulse Ox O2 O2 Flow FiO2 Time Delivery Rate 10/17/18 97.7 70 20 144/67 100 Nasal 14:00 (92) Cannula 10/17/18 2.0 09:54 Intake and Output 10/16/18 10/16/18 10/17/18 1515:00 23:00 07:00 IntakeIntake Total 1200 ml 300 ml OutputOutput Total 100 ml 800 ml BalanceBalance -100 ml 400 ml 300 ml Results Result Diagram: 10/17/18 0649 10/17/18 0649 Results 24hrs Laboratory Tests Test 10/17/18 06:49 White Blood Count 8.2 Red Blood Count 3.86 L Hemoglobin 10.4 L Hematocrit 34.6 L Mean Corpuscular Volume 89.6 Mean Corpuscular Hemoglobin 26.9 L Mean Corpuscular Hemoglobin Concent 30.1 L Red Cell Distribution Width 18.1 H Platelet Count 293 Mean Platelet Volume 10.6 H Immature Granulocytes % 0.500 H Neutrophils % 61.9 Lymphocytes % 24.0 Monocytes % 10.3 Eosinophils % 2.4 Basophils % 0.9 Nucleated Red Blood Cells % 0.0 Immature Granulocytes # 0.040 H Neutrophils # 5.1 Lymphocytes # 2.0 Monocytes # 0.8 Eosinophils # 0.2 Basophils # 0.1 Nucleated Red Blood Cells # 0.0 Sodium Level 141 Potassium Level 4.7 Chloride Level 99 Carbon Dioxide Level 27 Anion Gap 15 H Blood Urea Nitrogen 76 H Creatinine 2.09 H Est Glomerular Filtrat Rate mL/min Glucose Level 99 Calcium Level 9.6 Phosphorus Level 3.8 Magnesium Level 2.2 Medications Medication Current Medications Docusate Sodium (Colace) 100 mg BID PO Last administered on 10/17/18at 08:39; Admin Dose 100 MG; Start 10/14/18 at 09:00 Senna (Senokot) 1 tab HS PO Last administered on 10/15/18 20:23; Admin Dose 1 TAB; Start 10/14/18 at 21:00 Magnesium Hydroxide (Milk Of Mag) 30 ml BID PRN PO CONSTIPATION; Start 10/13/18 at 21:30 Lactulose (Enulose) 20 gm DAILY PRN PO CONSTIPATION; Start 10/13/18 at 21:30 Bisacodyl (Dulcolax Supp) 10 mg DAILY PRN [place] CONSTIPATION; Start 10/13/18 at 21:30 Acetaminophen (Tylenol Tab) 1,000 mg Q6H PRN PO MILD PAIN(1-3)OR ELEVATED TEMP Last administered on 10/17/18 09:54; Admin Dose 1,000 MG; Start 10/13/18 at 22:00 Albuterol/ Ipratropium (Duoneb) 3 ml Q4H RESP THERAPY HHN Last administered on 10/17/18 09:10; Admin Dose 3 ML; Start 10/14/18 at 01:00 Apixaban (Eliquis) 2.5 mg BID PO Last administered on 10/17/18 08:40; Admin Dose 2.5 MG; Start 10/13/18 at 22:00 Atorvastatin Calcium (Lipitor) 40 mg DAILY@21 PO Last administered on 10/16/18 20:05; Admin Dose 40 MG; Start 10/13/18 at 22:00 Famotidine (Pepcid) 20 mg DAILY PO Last administered on 10/17/18 08:40; Admin Dose 20 MG; Start 10/14/18 at 09:00 Haloperidol (Haldol) 2 mg Q4H PRN IM AGITATION Last administered on 10/16/18 17:28; Admin Dose 2 MG; Start 10/13/18 at 22:00 Polyethylene Glycol (Miralax) 17 gm DAILY PO Last administered on 10/17/18 08:41; Admin Dose 17 GM; Start 10/14/18 at 09:00 Multivitamins Therapeutic (Theragran) 1 tab DAILY PO Last administered on 10/17/18 08:40; Admin Dose 1 TAB; Start 10/14/18 at 13:30 Zinc Sulfate (Zinc Sulfate) 220 mg DAILY PO Last administered on 10/17/18 08:40; Admin Dose 220 MG; Start 10/14/18 at 13:30 Quetiapine Fumarate (Seroquel) 50 mg HS PO Last administered on 10/16/18at 20:06; Admin Dose 50 MG; Start 10/14/18 at 21:00 Metoprolol Succinate (Toprol Xl) 25 mg BID PO Last administered on 10/17/18at 08:41; Admin Dose 25 MG; Start 10/14/18 at 21:00 Ascorbic Acid (Vitamin C) 250 mg DAILY PO Last administered on 10/17/18at 08:39; Admin Dose 250 MG; Start 10/16/18 at 09:00 Bumetanide (Bumex) 1 mg DAILY PO Last administered on 10/17/18 08:39; Admin Dose 1 MG; Start 10/16/18 at 09:00 Lidocaine (Lidoderm) 1 patch DAILY TD ; Start 10/18/18 at 09:00 Diclofenac Sodium (Voltaren 1% Gel) 4 gm QID TP ; Start 10/17/18 at 13:00 DON HEAD NP Oct 17, 2018 17:30
--- NOTE | 2018-10-17 19:08 | CONS ---
Consult Date/Type/Reason Admit Date/Time Oct 13, 2018 at 20:16 Initial Consult Date Type of Consultation: cv Date/Time of Note DATE: 10/17/18 TIME: 19:08 Subjective Cardiology follow-up progress note Subjective: Case discussed with staff. Patient denies any cp or sob to me and is less hypoxemic pt still with cough but stable now Has been cooperative rehab Objective: General: thin. in no acute distress HEENT: NC/AT. pupils are equal. round. NECK: Status post previous trach. no stridor. CV: RRR. systolic murmur; no gallop or rubs. PULM:+ mild rhonchi. GI: SOFT, NT, ND, no rebound or guarding Extremity: mild left LE edema. Status post right AKA neuro: awake and alert. Oriented to person and place Psych: Calm now rectal: deferred : normal Chest x-ray 10/05/2018 shows: Interstitial infiltrate/edema are moderately improved. Mild improvement in bibasilar alveolar infiltrates. Minimal bilateral pleural effusions are unchanged. Chest x-ray 10/10/2018 shows: 1. Slightly improved pulmonary edema. 2. No other change from the 10/08/2018 chest radiograph. Objective Vitals Vital Signs Date Temp Pulse Resp B/P (MAP) Pulse Ox O2 O2 Flow FiO2 Time Delivery Rate 10/17/18 97.7 70 20 144/67 100 Nasal 14:00 (92) Cannula 10/17/18 2.0 09:54 Intake and Output 10/16/18 10/16/18 10/17/18 1515:00 23:00 07:00 IntakeIntake Total 1200 ml 300 ml OutputOutput Total 100 ml 800 ml BalanceBalance -100 ml 400 ml 300 ml Results/Medications Result Diagram: 10/17/18 0649 10/17/18 0649 Results 24 hrs Laboratory Tests Test 10/17/18 06:49 White Blood Count 8.2 Red Blood Count 3.86 L Hemoglobin 10.4 L Hematocrit 34.6 L Mean Corpuscular Volume 89.6 Mean Corpuscular Hemoglobin 26.9 L Mean Corpuscular Hemoglobin Concent 30.1 L Red Cell Distribution Width 18.1 H Platelet Count 293 Mean Platelet Volume 10.6 H Immature Granulocytes % 0.500 H Neutrophils % 61.9 Lymphocytes % 24.0 Monocytes % 10.3 Eosinophils % 2.4 Basophils % 0.9 Nucleated Red Blood Cells % 0.0 Immature Granulocytes # 0.040 H Neutrophils # 5.1 Lymphocytes # 2.0 Monocytes # 0.8 Eosinophils # 0.2 Basophils # 0.1 Nucleated Red Blood Cells # 0.0 Sodium Level 141 Potassium Level 4.7 Chloride Level 99 Carbon Dioxide Level 27 Anion Gap 15 H Blood Urea Nitrogen 76 H Creatinine 2.09 H Est Glomerular Filtrat Rate mL/min Glucose Level 99 Calcium Level 9.6 Phosphorus Level 3.8 Magnesium Level 2.2 Home Meds Active Scripts Ibuprofen* (Motrin*) 400 Mg Tab, 400 MG PO Q8, #30 TAB Prov:SAFIA LUGO MD 12/12/17 Hydrocodone/Acetaminophen ([place] 5-325 Tablet) 1 Each Tablet, 1 TAB PO Q6H PRN for PAIN, #20 TAB Prov:SAFIA LUGO MD 12/12/17 Reported Medications Aspirin (Low Dose Aspirin) 81 Mg Tablet.dr, 81 MG PO DAILY, #30 TAB 12/01/16 Metoprolol Succinate* (Toprol XL*) 50 Mg Tab.er.24h, 50 MG PO DAILY, TAB 05/13/15 Losartan Potassium* (Losartan Potassium*) 50 Mg Tablet, 50 MG PO DAILY, TAB 05/13/15 Atorvastatin* (Atorvastatin*) 40 Mg Tablet, 40 MG PO HS, TAB 05/13/15 Bumetanide* (Bumex*) 2 Mg Tab, 2 MG PO OD 11/15/12 Medications Current Medications Docusate Sodium (Colace) 100 mg BID PO Last administered on 10/17/18at 08:39; Admin Dose 100 MG; Start 10/14/18 at 09:00 Senna (Senokot) 1 tab HS PO Last administered on 10/15/18at 20:23; Admin Dose 1 TAB; Start 10/14/18 at 21:00 Magnesium Hydroxide (Milk Of Mag) 30 ml BID PRN PO CONSTIPATION; Start 10/13/18 at 21:30 Lactulose (Enulose) 20 gm DAILY PRN PO CONSTIPATION; Start 10/13/18 at 21:30 Bisacodyl (Dulcolax Supp) 10 mg DAILY PRN [place] CONSTIPATION; Start 10/13/18 at 21:30 Acetaminophen (Tylenol Tab) 1,000 mg Q6H PRN PO MILD PAIN(1-3)OR ELEVATED TEMP Last administered on 10/17/18 09:54; Admin Dose 1,000 MG; Start 10/13/18 at 22:00 Albuterol/ Ipratropium (Duoneb) 3 ml Q4H RESP THERAPY HHN Last administered on 10/17/18 09:10; Admin Dose 3 ML; Start 10/14/18 at 01:00 Apixaban (Eliquis) 2.5 mg BID PO Last administered on 10/17/18 08:40; Admin Dose 2.5 MG; Start 10/13/18 at 22:00 Atorvastatin Calcium (Lipitor) 40 mg DAILY@21 PO Last administered on 10/16/18 20:05; Admin Dose 40 MG; Start 10/13/18 at 22:00 Famotidine (Pepcid) 20 mg DAILY PO Last administered on 10/17/18 08:40; Admin Dose 20 MG; Start 10/14/18 at 09:00 Haloperidol (Haldol) 2 mg Q4H PRN IM AGITATION Last administered on 10/16/18 17:28; Admin Dose 2 MG; Start 10/13/18 at 22:00 Polyethylene Glycol (Miralax) 17 gm DAILY PO Last administered on 10/17/18 0 8:41; Admin Dose 17 GM; Start 10/14/18 at 09:00 Multivitamins Therapeutic (Theragran) 1 tab DAILY PO Last administered on 10/17/18 08:40; Admin Dose 1 TAB; Start 10/14/18 at 13:30 Zinc Sulfate (Zinc Sulfate) 220 mg DAILY PO Last administered on 10/17/18 08:40; Admin Dose 220 MG; Start 10/14/18 at 13:30 Quetiapine Fumarate (Seroquel) 50 mg HS PO Last administered on 10/16/18 20:06; Admin Dose 50 MG; Start 10/14/18 at 21:00 Metoprolol Succinate (Toprol Xl) 25 mg BID PO Last administered on 10/17/18 08:41; Admin Dose 25 MG; Start 10/14/18 at 21:00 Ascorbic Acid (Vitamin C) 250 mg DAILY PO Last administered on 10/17/18 08:39; Admin Dose 250 MG; Start 2/17/19 at 09:00 Bumetanide (Bumex) 1 mg DAILY PO Last administered on 10/17/18at 08:39; Admin Dose 1 MG; Start 10/16/18 at 09:00 Lidocaine (Lidoderm) 1 patch DAILY TD ; Start 10/18/18 at 09:00 Diclofenac Sodium (Voltaren 1% Gel) 4 gm QID TP Last administered on 10/17/18at 17:47; Admin Dose 4 GM; Start 10/17/18 at 13:00 Assessment/Plan Hospital Course (Demo Recall) hypoxic hypercapnic respiratory failure Congestive heart failure 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 ON BUMEX NOW Continue respiratory care oxygen supplement. O2 as needed cont eliquis Not on TAYLOR inhibitor due to his renal failure. We will resume his ARB once okay from renal standpoint cont toprol 25 bid CONT rehab as tolerated Thank. you for his referral we will continue to monitor with you. SHARONDA BRICENO MD [facility] SHARONDA BRICENO MD Oct 17, 2018 19:08
[2018-10-17 20:03] VITALS: BP 119/50; PULSE 73; RESP 18
[2018-10-17] MEDS: QUETIAPINE 25 MG TAB PO SCH (20:18)
[2018-10-17] MEDS: ATORVASTATIN 40 MG TAB PO SCH (20:19)
[2018-10-17] MEDS: SENNA TAB PO SCH (21:00)
[2018-10-17] MEDS: HALOPERIDOL 5 MG INJ IM PRN (22:25)
[2018-10-18 02:00] VITALS: BP 116/50; PULSE 68; RESP 18
[2018-10-18] MEDS: ALBUTEROL/IPRATROPIUM (NEB) 3 ML AMP HHN SCH ×6 (02:08→21:45)
[2018-10-18 07:00] VITALS: BP 142/67; PULSE 70; RESP 18
--- NOTE | 2018-10-18 08:51 | PN ---
DATE: 10/18/2018 SUBJECTIVE: The patient is stable, no events overnight. OBJECTIVE: VITAL SIGNS: Blood pressure is 144/67, pulse 73, respirations 20, temperature 97.9. HEENT: Head is normocephalic. NECK: Supple. HEART: Regular rate. LUNGS: Show diminished breath sounds at the base. ABDOMEN: Soft, nontender to palpation. No rebound or guarding. EXTREMITIES: Negative for clubbing, cyanosis. Trace edema in left lower leg. Right below-knee ampu tation is noted. DERMATOLOGIC: No rashes. MUSCULOSKELETAL: No joint effusion. NEUROLOGIC: No change in exam. MEDICATIONS: Reviewed. LABORATORY DATA: From 10/17/2018 was reviewed. ASSESSMENT AND PLAN: 1. Acute hypoxemic respiratory failure secondary to congestive heart failure exacerbation. The sim ent is clinically improving. Continue medical management. 2. Nonoliguric acute kidney injury on top of chronic kidney disease, etiology is secondary to hemody namics. Renal function has been fluctuating. Diuretics have been adjusted. Continue to monitor. 3. Acute systolic heart failure. Continue current medical management. 4. Sepsis secondary to tracheal bronchitis. The patient has completed antibiotic course. 5. Mineral bone disorder, monitor calcium and phosphorus levels. 6. Encephalopathy, etiology is toxic metabolic, improving. Continue to monitor. 7. Anxiety disorder. Continue Seroquel. 8. History of coronary artery disease and coronary artery bypass graft. Continue medical management . 9. Critical care myopathy. Continue PT, occupational therapy, and continue ambulation. 10. Arrhythmia, status post ICD placement. 11. Hypertension. Continue current blood pressure regimen. 12. Dyslipidemia. Continue statin therapy. 13. History of throat cancer with residual ostium. 14. Gastrointestinal and deep vein thrombosis prophylaxis. Dictated By: RICHARD CASTLE DO NR/NTS Conf#: [id number] DID#: [id number] CC: RICHARD CASTLE DO; REMIGIO REA MD;*EndCC*
[2018-10-18] MEDS: POLYETHYLENE GLYCOL 17 GM PACKET PO SCH (09:04)
[2018-10-18] MEDS: LIDOCAINE 5% PATCH TD SCH (09:05)
[2018-10-18] MEDS: FAMOTIDINE 20 MG TAB PO SCH (09:06)
[2018-10-18] MEDS: APIXABAN 5 MG TABLET PO SCH ×2 (09:06→20:44)
[2018-10-18] MEDS: METOPROLOL (XL) 25 MG TAB PO SCH ×2 (09:06→20:46)
[2018-10-18] MEDS: BUMETANIDE 1 MG TAB PO SCH (09:06)
[2018-10-18] MEDS: ASCORBIC ACID 250 MG TAB PO SCH (09:06)
[2018-10-18] MEDS: DOCUSATE SODIUM 100 MG CAP PO SCH ×2 (09:06→21:00)
[2018-10-18] MEDS: DICLOFENAC SODIUM 1% GEL 100 GM TUBE TP SCH ×4 (09:07→20:46)
[2018-10-18] MEDS: MULTIVITAMINS THERAPEUTIC TAB PO SCH (09:07)
[2018-10-18] MEDS: ZINC SULFATE 220 MG CAP PO SCH (09:10)
[2018-10-18] MEDS: QUETIAPINE 25 MG TAB PO SCH ×2 (09:30→21:03)
--- NOTE | 2018-10-18 11:18 | PN ---
Date/Time of Note Date/Time of Note DATE: 10/18/18 TIME: 11:14 Subjective Patient with bouts of agitation. Currently calm Objective Vital Signs Date Temp Pulse Resp B/P (MAP) Pulse Ox O2 O2 Flow FiO2 Time Delivery Rate 10/18/18 Nasal 2.0 08:00 Cannula 10/18/18 97.9 70 18 142/67 99 07:00 (92) Intake and Output 10/17/18 10/17/18 10/18/18 1515:00 23:00 07:00 IntakeIntake Total 200 ml 1400 ml 360 ml BalanceBalance 200 ml 1400 ml 360 ml Exam pulm-cta mod bed mobility max transfer Results/Medications Result Diagram: 10/17/1849 10/17/18648 Medications Current Medications Docusate Sodium (Colace) 100 mg BID PO Last administered on 10/18/18 09:06; Admin Dose 100 MG; Start 10/14/18 at 09:00 Senna (Senokot) 1 tab HS PO Last administered on 10/15/18 20:23; Admin Dose 1 TAB; Start 10/14/18 at 21:00 Magnesium Hydroxide (Milk Of Mag) 30 ml BID PRN PO CONSTIPATION; Start 10/13/18 at 21:30 Lactulose (Enulose) 20 gm DAILY PRN PO CONSTIPATION; Start 10/13/18 at 21:30 Bisacodyl (Dulcolax Supp) 10 mg DAILY PRN [place] CONSTIPATION; Start 10/13/18 at 21:30 Acetaminophen (Tylenol Tab) 1,000 mg Q6H PRN PO MILD PAIN(1-3)OR ELEVATED TEMP Last administered on 10/17/18at 21:24; Admin Dose 1,000 MG; Start 10/13/18 at 22:00 Albuterol/ Ipratropium (Duoneb) 3 ml Q4H RESP THERAPY HHN Last administered on 10/18/18 09:17; Admin Dose 3 ML; Start 10/14/18 at 01:00 Apixaban (Eliquis) 2.5 mg BID PO Last administered on 10/18/18 09:06; Admin Dose 2.5 MG; Start 10/13/18 at 22:00 Atorvastatin Calcium (Lipitor) 40 mg DAILY@21 PO Last administered on 10/17/18 20:19; Admin Dose 40 MG; Start 10/13/18 at 22:00 Famotidine (Pepcid) 20 mg DAILY PO Last administered on 10/18/18 09:06; Admin Dose 20 MG; Start 10/14/18 at 09:00 Haloperidol (Haldol) 2 mg Q4H PRN IM AGITATION Last administered on 10/17/18 22:25; Admin Dose 2 MG; Start 10/13/18 at 22:00 Polyethylene Glycol (Miralax) 17 gm DAILY PO Last administered on 10/18/18 09:04; Admin Dose 17 GM; Start 10/14/18 at 09:00 Multivitamins Therapeutic (Theragran) 1 tab DAILY PO Last administered on 10/18/18 09:07; Admin Dose 1 TAB; Start 10/14/18 at 13:30 Zinc Sulfate (Zinc Sulfate) 220 mg DAILY PO Last administered on 10/18/18 09:10; Admin Dose 220 MG; Start 10/14/18 at 13:30 Quetiapine Fumarate (Seroquel) 50 mg HS PO Last administered on 10/17/18 20:18; Admin Dose 50 MG; Start 10/14/18 at 21:00 Metoprolol Succinate (Toprol Xl) 25 mg BID PO Last administered on 10/18/18 09:06; Admin Dose 25 MG; Start 10/14/18 at 21:00 Ascorbic Acid (Vitamin C) 250 mg DAILY PO Last administered on 10/18/18 09:06; Admin Dose 250 MG; Start 10/16/18 at 09:00 Bumetanide (Bumex) 1 mg DAILY PO Last administered on 10/18/18 09:06; Admin Dose 1 MG; Start 10/16/18 at 09:00 Lidocaine (Lidoderm) 1 patch DAILY TD Last administered on 10/18/18 09:05; Admin Dose 1 PATCH; Start 10/18/18 at 09:00 Diclofenac Sodium (Voltaren 1% Gel) 4 gm QID TP Last administered on 10/18/18 09:07; Admin Dose 4 GM; Start 10/17/18 at 13:00 Quetiapine Fumarate (Seroquel) 25 mg QAM PO ; Start 10/18/18 at 09:30 Assessment/Plan Additional Assessment/Plan Rehab- Critical illness myopathy; h.o. R Above the Knee Amputation Continue current treatment plan Status post respiratory failure with trach in a history of patient with throat cancer. Status post sepsis. Acute on chronic kidney injury. Peripheral vascular disease. Hypertension. Hyperlipidemia. COPD. History of coronary artery disease, CABG and ICD. REMIGIO REA MD Oct 18, 2018 11:18
--- NOTE | 2018-10-18 11:27 | CONS ---
Consult Date/Type/Reason Admit Date/Time Oct 13, 2018 at 20:16 Initial Consult Date Type of Consultation: cv Date/Time of Note DATE: 10/18/18 TIME: 11:27 Objective Vitals Vital Signs Date Temp Pulse Resp B/P (MAP) Pulse Ox O2 O2 Flow FiO2 Time Delivery Rate 10/18/18 Nasal 2.0 08:00 Cannula 10/18/18 97.9 70 18 142/67 99 07:00 (92) Intake and Output 10/17/18 10/17/18 10/18/18 1515:00 23:00 07:00 IntakeIntake Total 200 ml 1400 ml 360 ml BalanceBalance 200 ml 1400 ml 360 ml Results/Medications Result Diagram: 10/17/1849 10/17/18 0649 Home Meds Active Scripts Ibuprofen* (Motrin*) 400 Mg Tab, 400 MG PO Q8, #30 TAB Prov:SAFIA LUGO MD 12/12/17 Hydrocodone/Acetaminophen (Turner 5-325 Tablet) 1 Each Tablet, 1 TAB PO Q6H PRN for PAIN, #20 TAB Prov:SAFIA LUGO MD 12/12/17 Reported Medications Aspirin (Low Dose Aspirin) 81 Mg Tablet.dr, 81 MG PO DAILY, #30 TAB 12/01/16 Metoprolol Succinate* (Toprol XL*) 50 Mg Tab.er.24h, 50 MG PO DAILY, TAB 05/13/15 Losartan Potassium* (Losartan Potassium*) 50 Mg Tablet, 50 MG PO DAILY, TAB 05/13/15 Atorvastatin* (Atorvastatin*) 40 Mg Tablet, 40 MG PO HS, TAB 05/13/15 Bumetanide* (Bumex*) 2 Mg Tab, 2 MG PO OD 11/15/12 Medications Current Medications Docusate Sodium (Colace) 100 mg BID PO Last administered on 10/18/18at 09:06; Admin Dose 100 MG; Start 10/14/18 at 09:00 Senna (Senokot) 1 tab HS PO Last administered on 10/15/18at 20:23; Admin Dose 1 TAB; Start 10/14/18 at 21:00 Magnesium Hydroxide (Milk Of Mag) 30 ml BID PRN PO CONSTIPATION; Start 10/13/18 at 21:30 Lactulose (Enulose) 20 gm DAILY PRN PO CONSTIPATION; Start 10/13/18 at 21:30 Bisacodyl (Dulcolax Supp) 10 mg DAILY PRN [place] CONSTIPATION; Start 10/13/18 at 21:30 Acetaminophen (Tylenol Tab) 1,000 mg Q6H PRN PO MILD PAIN(1-3)OR ELEVATED TEMP Last administered on 10/17/18 21:24; Admin Dose 1,000 MG; Start 10/13/18 at 22:00 Albuterol/ Ipratropium (Duoneb) 3 ml Q4H RESP THERAPY HHN Last administered on 10/18/18 09:17; Admin Dose 3 ML; Start 10/14/18 at 01:00 Apixaban (Eliquis) 2.5 mg BID PO Last administered on 10/18/18 09:06; Admin Dose 2.5 MG; Start 10/13/18 at 22:00 Atorvastatin Calcium (Lipitor) 40 mg DAILY@21 PO Last administered on 10/17/18 20:19; Admin Dose 40 MG; Start 10/13/18 at 22:00 Famotidine (Pepcid) 20 mg DAILY PO Last administered on 10/18/18 09:06; Admin Dose 20 MG; Start 10/14/18 at 09:00 Haloperidol (Haldol) 2 mg Q4H PRN IM AGITATION Last administered on 10/17/18 22:25; Admin Dose 2 MG; Start 10/13/18 at 22:00 Polyethylene Glycol (Miralax) 17 gm DAILY PO Last administered on 10/18/18 09:04; Admin Dose 17 GM; Start 10/14/18 at 09:00 Multivitamins Therapeutic (Theragran) 1 tab DAILY PO Last administered on 10/18/18 09:07; Admin Dose 1 TAB; Start 10/14/18 at 13:30 Zinc Sulfate (Zinc Sulfate) 220 mg DAILY PO Last administered on 10/18/18 09:10; Admin Dose 220 MG; Start 10/14/18 at 13:30 Quetiapine Fumarate (Seroquel) 50 mg HS PO Last administered on 10/17/18 20:18; Admin Dose 50 MG; Start 10/14/18 at 21:00 Metoprolol Succinate (Toprol Xl) 25 mg BID PO Last administered on 10/18/18 09:06; Admin Dose 25 MG; Start 10/14/18 at 21:00 Ascorbic Acid (Vitamin C) 250 mg DAILY PO Last administered on 10/18/18 09:06; Admin Dose 250 MG; Start 10/16/18 at 09:00 Bumetanide (Bumex) 1 mg DAILY PO Last administered on 10/18/18 09:06; Admin Dose 1 MG; Start 10/16/18 at 09:00 Lidocaine (Lidoderm) 1 patch DAILY TD Last administered on 10/18/18 09:05; Admin Dose 1 PATCH; Start 10/18/18 at 09:00 Diclofenac Sodium (Voltaren 1% Gel) 4 gm QID TP Last administered on 10/18/18 09:07; Admin Dose 4 GM; Start 10/17/18 at 13:00 Quetiapine Fumarate (Seroquel) 25 mg QAM PO ; Start 10/18/18 at 09:30 Assessment/Plan Hospital Course (Demo Recall) hypoxic hypercapnic respiratory failure Congestive heart failure 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 ON BUMEX NOW Continue respiratory care oxygen supplement. O2 as needed cont eliquis Not on TAYLOR inhibitor due to his renal failure. We will resume his ARB once okay from renal standpoint cont toprol 25 bid CONT rehab as tolerated Thank. you for his referral we will continue to monitor with you. SHARONDA BRICENO MD LOCATED WITHIN [facility] SHARONDA BRICENO MD Oct 18, 2018 11:27
[2018-10-18 14:00] VITALS: BP 135/87; PULSE 83; RESP 18
--- NOTE | 2018-10-18 18:16 | CONS ---
Assessment/Plan Assessment/Plan Hospital Course (Demo Recall) ID PROGRESS NOTE CURRENT ABX: DAY #3 =>OFF ABX * S/P FOSFOMYCIN po x1 10/15/17 for concern Enterococcal UTI 24H INTERVAL SUMMARY * OOB-> Sitting in WC participating in group tx -- alert, and responsive, feels better. * s/p Fosfomycin 3G x1 po for concern enterococcal UTI -- denies dysuria/hematuria/ABD/flank pain MICRO/OTHER * 10/14/18 (-)MRSA * 10/14/18 Urine Cx URINE CULTURE URINE CULTURE Final Organism 1 ENTEROCOCCUS SPECIES COLONY COUNT <10,000 CFU/ml ENT SPS M.I.C. RX --------- --- AMPICILLIN <=2 S CIPROFLOXACIN 1 S LEVOFLOXACIN 0.5 S NITROFURANTOIN <=16 S PENICILLIN-G 2 S VANCOMYCIN 1 S PHYSICAL EXAMINATION: GENERAL: Afebrile, VSS HEENT: AT, NC, anicteric NECK: Supple, DSG over prior trach decannulation CHEST: Equal chest rise bilaterally, without dyspnea on observation HEART: Pulse RRR ABDOMEN: Soft / NT EXTREMITIES: Warm, dry SKIN: No rash, no diaphoresis ID ASSESSMENT 83 yo M admit with: 1. SIRS w/mild leukocytosis and Enterococcal bacteruria vs early UTI => TREATED w/ FOSFOMYCIN po x1 10/15/17 2. Acute hypoxemic respiratory failure secondary to fluid overload COPD exa cerbation, possible pneumonia==> completed abx 3. 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 4. Ischemic CMY -- s/p acute systolic HF exacerbation * ICD in place w/hx of cardiac arrhythmia 6. History of peripheral vascular disease status post right BKA 7. Status post left lower extremity cellulitis superimposed on venous stasis edema 8. Acute on chronic kidney disease 9. Hx of MRSA nares consolidation 10/04/18 => TREATED w/ repeat 10/14/18 (-)MRSA (-)MRSA Nares ABX ALLERGIES: KNDA INVASIVES: PIV CURRENT ABX: DAY #3 =>OFF ABX * S/P FOSFOMYCIN po x1 10/15/17 for concern Enterococcal UTI ID RECOMMENDATIONS/PLAN: 1. DC Bactroban, DC isolation 2. s/p Enterococcal bacteruria vs low colony count UTI was treated w/Fosfomycin 3gm po x1 * He is currently asymptomatic on DAY #3 post Fosfomycin Rx * NOTE: ID team will follow PRN - please text or call if new ID recommendations are warranted. . Consultation Date/Type/Reason Admit Date/Time Oct 13, 2018 at 20:16 Initial Consult Date Date/Time of Note DATE: 10/18/18 TIME: 18:13 Exam/Review of Systems Exam Vitals Vital Signs Date Temp Pulse Resp B/P (MAP) Pulse Ox O2 O2 Flow FiO2 Time Delivery Rate 10/18/18 98.0 83 18 135/87 97 Room Air 14:00 (103) 10/18/18 2.0 08:00 Intake and Output 10/17/18 10/17/18 10/18/18 1414:59 22:59 06:59 IntakeIntake Total 200 ml 1400 ml 360 ml BalanceBalance 200 ml 1400 ml 360 ml Results Result Diagram: 10/17/18 0649 10/17/1849 Medications Medication Current Medications Docusate Sodium (Colace) 100 mg BID PO Last administered on 10/18/18at 09:06; Admin Dose 100 MG; Start 10/14/18 at 09:00 Senna (Senokot) 1 tab HS PO Last administered on 10/15/18at 20:23; Admin Dose 1 TAB; Start 10/14/18 at 21:00 Magnesium Hydroxide (Milk Of Mag) 30 ml BID PRN PO CONSTIPATION; Start 10/13/18 at 21:30 Lactulose (Enulose) 20 gm DAILY PRN PO CONSTIPATION; Start 10/13/18 at 21:30 Bisacodyl (Dulcolax Supp) 10 mg DAILY PRN [place] CONSTIPATION; Start 10/13/18 at 21:30 Acetaminophen (Tylenol Tab) 1,000 mg Q6H PRN PO MILD PAIN(1-3)OR ELEVATED TEMP Last administered on 10/17/18at 21:24; Admin Dose 1,000 MG; Start 10/13/18 at 22:00 Albuterol/ Ipratropium (Duoneb) 3 ml Q4H RESP THERAPY HHN Last administered on 10/18/18at 13:51; Admin Dose 3 ML; Start 10/14/18 at 01:00 Apixaban (Eliquis) 2.5 mg BID PO Last administered on 10/18/18 09:06; Admin Dose 2.5 MG; Start 10/13/18 at 22:00 Atorvastatin Calcium (Lipitor) 40 mg DAILY@21 PO Last administered on 10/17/18 20:19; Admin Dose 40 MG; Start 10/13/18 at 22:00 Famotidine (Pepcid) 20 mg DAILY PO Last administered on 10/18/18 09:06; Admin Dose 20 MG; Start 10/14/18 at 09:00 Haloperidol (Haldol) 2 mg Q4H PRN IM AGITATION Last administered on 10/17/18 22:25; Admin Dose 2 MG; Start 10/13/18 at 22:00 Polyethylene Glycol (Miralax) 17 gm DAILY PO Last administered on 10/18/18 09:04; Admin Dose 17 GM; Start 10/14/18 at 09:00 Multivitamins Therapeutic (Theragran) 1 tab DAILY PO Last administered on 10/18/18 09:07; Admin Dose 1 TAB; Start 10/14/18 at 13:30 Zinc Sulfate (Zinc Sulfate) 220 mg DAILY PO Last administered on 10/18/18 09:10; Admin Dose 220 MG; Start 10/14/18 at 13:30 Quetiapine Fumarate (Seroquel) 50 mg HS PO Last administered on 10/17/18 20:18; Admin Dose 50 MG; Start 10/14/18 at 21:00 Metoprolol Succinate (Toprol Xl) 25 mg BID PO Last administered on 10/18/18 09:06; Admin Dose 25 MG; Start 10/14/18 at 21:00 Ascorbic Acid (Vitamin C) 250 mg DAILY PO Last administered on 10/18/18 09:06; Admin Dose 250 MG; Start 10/16/18 at 09:00 Bumetanide (Bumex) 1 mg DAILY PO Last administered on 10/18/18 09:06; Admin Dose 1 MG; Start 10/16/18 at 09:00 Lidocaine (Lidoderm) 1 patch DAILY TD Last administered on 10/18/18 09:05; Admin Dose 1 PATCH; Start 10/18/18 at 09:00 Diclofenac Sodium (Voltaren 1% Gel) 4 gm QID TP Last administered on 10/18/18 17:32; Admin Dose 4 GM; Start 10/17/18 at 13:00 Quetiapine Fumarate (Seroquel) 25 mg QAM PO ; Start 10/18/18 at 09:30 DON HEAD NP Oct 18, 2018 18:16
[2018-10-18] MEDS: HALOPERIDOL 5 MG INJ IM PRN (19:41)
[2018-10-18 20:17] VITALS: BP 119/55; PULSE 71; RESP 18
[2018-10-18] MEDS: ATORVASTATIN 40 MG TAB PO SCH (20:44)
[2018-10-18] MEDS: SENNA TAB PO SCH (21:00)
[2018-10-19] MEDS: ALBUTEROL/IPRATROPIUM (NEB) 3 ML AMP HHN SCH ×6 (01:52→21:55)
[2018-10-19 02:00] VITALS: BP 141/63; PULSE 95; RESP 18
[2018-10-19 08:30] VITALS: BP 125/58; PULSE 70; RESP 18
[2018-10-19] MEDS: BUMETANIDE 1 MG TAB PO SCH (08:52)
[2018-10-19] MEDS: MULTIVITAMINS THERAPEUTIC TAB PO SCH (08:53)
[2018-10-19] MEDS: ASCORBIC ACID 250 MG TAB PO SCH (08:53)
[2018-10-19] MEDS: DOCUSATE SODIUM 100 MG CAP PO SCH ×2 (08:53→20:13)
[2018-10-19] MEDS: APIXABAN 5 MG TABLET PO SCH ×2 (08:53→20:13)
[2018-10-19] MEDS: FAMOTIDINE 20 MG TAB PO SCH (08:53)
[2018-10-19] MEDS: ZINC SULFATE 220 MG CAP PO SCH (08:53)
[2018-10-19] MEDS: QUETIAPINE 25 MG TAB PO SCH ×2 (08:53→20:13)
[2018-10-19] MEDS: METOPROLOL (XL) 25 MG TAB PO SCH ×2 (08:54→20:14)
[2018-10-19] MEDS: POLYETHYLENE GLYCOL 17 GM PACKET PO SCH (08:54)
[2018-10-19] MEDS: DICLOFENAC SODIUM 1% GEL 100 GM TUBE TP SCH ×4 (08:54→20:11)
--- NOTE | 2018-10-19 08:59 | CONS ---
Consult Date/Type/Reason Admit Date/Time Oct 13, 2018 at 20:16 Initial Consult Date Type of Consultation: cv Date/Time of Note DATE: 10/19/18 TIME: 08:59 Subjective Cardiology follow-up progress note Subjective: Case discussed with staff. Patient denies any cp or sob to me and is less hypoxemic pt still with cough but stable now Objective: General: thin. in no acute distress HEENT: NC/AT. pupils are equal. round. NECK: Status post previous trach. no stridor. CV: RRR. systolic murmur; no gallop or rubs. PULM:+ mild rhonchi. GI: SOFT, NT, ND, no rebound or guarding Extremity: mild left LE edema. Status post right AKA neuro: awake and alert. Oriented to person and place Psych: Calm now rectal: deferred : normal Chest x-ray 10/05/2018 shows: Interstitial infiltrate/edema are moderately improved. Mild improvement in bibasilar alveolar infiltrates. Minimal bilateral pleural effusions are unchanged. Chest x-ray 10/10/2018 shows: 1. Slightly improved pulmonary edema. 2. No other change from the 10/08/2018 chest radiograph. Objective Vitals Vital Signs Date Temp Pulse Resp B/P (MAP) Pulse Ox O2 O2 Flow FiO2 Time Delivery Rate 10/19/18 97.4 70 18 125/58 96 Room Air 08:30 (80) 10/19/18 21 05:50 10/18/18 2.0 19:52 Intake and Output 10/18/18 10/18/18 10/19/18 1515:00 23:00 07:00 IntakeIntake Total 240 ml 1200 ml 240 ml OutputOutput Total 800 ml BalanceBalance 240 ml 400 ml 240 ml Results/Medications Result Diagram: 10/17/18 0649 10/19/18 0624 Results 24 hrs Laboratory Tests Test 10/19/18 06:24 Sodium Level 140 Potassium Level 4.8 Chloride Level 102 Carbon Dioxide Level 30 Anion Gap 8 Blood Urea Nitrogen 74 H Creatinine 2.03 H Est Glomerular Filtrat Rate mL/min Glucose Level 93 Calcium Level 9.7 Phosphorus Level 4.6 Magnesium Level 2.2 Home Meds Active Scripts Ibuprofen* (Motrin*) 400 Mg Tab, 400 MG PO Q8, #30 TAB Prov:SAFIA LUGO MD 12/12/17 Hydrocodone/Acetaminophen (Basco 5-325 Tablet) 1 Each Tablet, 1 TAB PO Q6H PRN for PAIN, #20 TAB Prov:SAFIA LUGO MD 12/12/17 Reported Medications Aspirin (Low Dose Aspirin) 81 Mg Tablet.dr, 81 MG PO DAILY, #30 TAB 12/01/16 Metoprolol Succinate* (Toprol XL*) 50 Mg Tab.er.24h, 50 MG PO DAILY, TAB 05/13/15 Losartan Potassium* (Losartan Potassium*) 50 Mg Tablet, 50 MG PO DAILY, TAB 05/13/15 Atorvastatin* (Atorvastatin*) 40 Mg Tablet, 40 MG PO HS, TAB 05/13/15 Bumetanide* (Bumex*) 2 Mg Tab, 2 MG PO OD 11/15/12 Medications Current Medications Docusate Sodium (Colace) 100 mg BID PO Last administered on 10/18/18 09:06; Admin Dose 100 MG; Start 10/14/18 at 09:00 Senna (Senokot) 1 tab HS PO Last administered on 10/15/18at 20:23; Admin Dose 1 TAB; Start 10/14/18 at 21:00 Magnesium Hydroxide (Milk Of Mag) 30 ml BID PRN PO CONSTIPATION; Start 10/13/18 at 21:30 Lactulose (Enulose) 20 gm DAILY PRN PO CONSTIPATION; Start 10/13/18 at 21:30 Bisacodyl (Dulcolax Supp) 10 mg DAILY PRN [place] CONSTIPATION; Start 10/13/18 at 21:30 Acetaminophen (Tylenol Tab) 1,000 mg Q6H PRN PO MILD PAIN(1-3)OR ELEVATED TEMP Last administered on 10/17/18at 21:24; Admin Dose 1,000 MG; Start 10/13/18 at 22:00 Albuterol/ Ipratropium (Duoneb) 3 ml Q4H RESP THERAPY HHN Last administered on 10/19/18at 05:50; Admin Dose 3 ML; Start 10/14/18 at 01:00 Apixaban (Eliquis) 2.5 mg BID PO Last administered on 10/18/18at 20:44; Admin Dose 2.5 MG; Start 10/13/18 at 22:00 Atorvastatin Calcium (Lipitor) 40 mg DAILY@21 PO Last administered on 10/18/18 20:44; Admin Dose 40 MG; Start 10/13/18 at 22:00 Famotidine (Pepcid) 20 mg DAILY PO Last administered on 10/18/18 09:06; Admin Dose 20 MG; Start 10/14/18 at 09:00 Haloperidol (Haldol) 2 mg Q4H PRN IM AGITATION Last administered on 10/18/18 19:41; Admin Dose 2 MG; Start 10/13/18 at 22:00 Polyethylene Glycol (Miralax) 17 gm DAILY PO Last administered on 10/18/18 09:04; Admin Dose 17 GM; Start 10/14/18 at 09:00 Multivitamins Therapeutic (Theragran) 1 tab DAILY PO Last administered on 10/18/18 09:07; Admin Dose 1 TAB; Start 10/14/18 at 13:30 Zinc Sulfate (Zinc Sulfate) 220 mg DAILY PO Last administered on 10/18/18 09:10; Admin Dose 220 MG; Start 10/14/18 at 13:30 Quetiapine Fumarate (Seroquel) 50 mg HS PO Last administered on 10/18/18 21:03; Admin Dose 50 MG; Start 10/14/18 at 21:00 Metoprolol Succinate (Toprol Xl) 25 mg BID PO Last administered on 10/18/18 20:46; Admin Dose 25 MG; Start 10/14/18 at 21:00 Ascorbic Acid (Vitamin C) 250 mg DAILY PO Last administered on 10/18/18 09:06; Admin Dose 250 MG; Start 10/16/18 at 09:00 Bumetanide (Bumex) 1 mg DAILY PO Last administered on 10/18/18 09:06; Admin Dose 1 MG; Start 10/16/18 at 09:00 Lidocaine (Lidoderm) 1 patch DAILY TD Last administered on 10/18/18 09:05; Admin Dose 1 PATCH; Start 10/18/18 at 09:00 Diclofenac Sodium (Voltaren 1% Gel) 4 gm QID TP Last administered on 10/18/18 20:46; Admin Dose 4 GM; Start 10/17/18 at 13:00 Quetiapine Fumarate (Seroquel) 25 mg QAM PO ; Start 10/18/18 at 09:30 Assessment/Plan Hospital Course (Demo Recall) hypoxic hypercapnic respiratory failure Congestive heart failure 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 ON BUMEX NOW Continue respiratory care oxygen supplement. O2 as needed cont eliquis Not on TAYLOR inhibitor due to his renal failure. We will resume his ARB once okay from renal standpoint cont toprol 25 bid CONT rehab as tolerated Thank. you for his referral we will continue to monitor with you. SHARONDA BRICENO MD [facility] SHARONDA BRICENO MD Oct 19, 2018 08:59
[2018-10-19] MEDS: LIDOCAINE 5% PATCH TD SCH (09:03)
--- NOTE | 2018-10-19 09:18 | PN ---
DATE: 10/19/2018 SUBJECTIVE: The patient is stable. No events overnight. OBJECTIVE: VITAL SIGNS: Blood pressure is 141/63, respiration 18, pulse 75, temperature 97.9. HEENT: Head is normocephalic. NECK: Supple. HEART: Regular rate. LUNGS: Show diminished breath sounds at the base. ABDOMEN: Soft, nontender to palpation without rebound or guarding. EXTREMITIES: Negative for clubbing, cyanosis, no edema. DERMATOLOGIC: No rashes. MUSCULOSKELETAL: No joint effusion. NEUROLOGIC: No change in exam. MEDICATIONS: Has been reviewed. LABORATORY DATA: From 10/19/2018 showed a BUN 74, creatinine 2.03. ASSESSMENT AND PLAN: 1. Acute hypoxemic respiratory failure secondary to congestive heart failure. The patient is clinic ally improving. Continue medical management. 2. Acute on chronic systolic heart failure. The patient is near euvolemic status. Continue medical management. 3. Nonoliguric acute kidney injury on top of chronic kidney disease. Etiology is secondary to hemod ynamics. Renal function has been fluctuating but overall improved. Continue to monitor. 4. Mineral bone disorder. Monitor calcium and phosphorus levels. 5. Encephalopathy. Etiology is toxic metabolic, improving. 6. Sepsis secondary to tracheal bronchitis, improved. The patient is currently off antibiotics. 7. Anxiety disorder. Continue Seroquel. 8. History of coronary artery disease, status post coronary artery bypass graft. Continue medical m anagement. 9. Critical care myopathy. Continue PT, occupational therapy. 10. Arrhythmia, status post ICD placement. 11. Hypertension. Continue current blood pressure regimen. 12. Dyslipidemia. Continue statin therapy. 13. History of throat cancer with residual ostium. 14. Gastrointestinal and deep vein thrombosis prophylaxis. Dictated By: RICHARD CASTLE DO NR/NTS Conf#: [id number] DID#: [id number] CC: REMIGIO REA MD;*EndCC*
--- NOTE | 2018-10-19 13:19 | PN ---
Date/Time of Note Date/Time of Note DATE: 10/19/18 TIME: 13:19 Objective Vital Signs Date Temp Pulse Resp B/P (MAP) Pulse Ox O2 O2 Flow FiO2 Time Delivery Rate 10/19/18 97.4 70 18 125/58 96 Room Air 08:30 (80) 10/19/18 2.0 08:30 10/19/18 21 05:50 Intake and Output 10/18/18 10/18/18 10/19/18 1414:59 22:59 06:59 IntakeIntake Total 240 ml 1200 ml 240 ml OutputOutput Total 800 ml BalanceBalance 240 ml 400 ml 240 ml Exam INTERDISCIPLINARY TEAM CONFERENCE Physical Exam: Pulm- cta Abd-soft BOWEL- Cont BLADDER-incont SKIN- improving OT- DRESSING- min UB/ max LB BATHING-min UB/max LB TOILETING- mod PT- BED MOBILITY- min TRANSFERS-mod AMBULATION- UA SPEECH- COGNITION- mod A/P- Interdisciplinary team conference held today. Please see interdisciplinary sheet. Working toward d.c. to lower level of care with post discharge follow up of physical therapy, occupational therapy. Results/Medications Result Diagram: 10/17/18 0649 10/19/18 0624 Results 24 hrs Laboratory Tests Test 10/19/18 06:24 Sodium Level 140 Potassium Level 4.8 Chloride Level 102 Carbon Dioxide Level 30 Anion Gap 8 Blood Urea Nitrogen 74 H Creatinine 2.03 H Est Glomerular Filtrat Rate mL/min Glucose Level 93 Calcium Level 9.7 Phosphorus Level 4.6 Magnesium Level 2.2 Medications Current Medications Docusate Sodium (Colace) 100 mg BID PO Last administered on 10/19/18at 08:53; Admin Dose 100 MG; Start 10/14/18 at 09:00 Senna (Senokot) 1 tab HS PO Last administered on 10/15/18at 20:23; Admin Dose 1 TAB; Start 10/14/18 at 21:00 Magnesium Hydroxide (Milk Of Mag) 30 ml BID PRN PO CONSTIPATION; Start 10/13/18 at 21:30 Lactulose (Enulose) 20 gm DAILY PRN PO CONSTIPATION; Start 10/13/18 at 21:30 Bisacodyl (Dulcolax Supp) 10 mg DAILY PRN [place] CONSTIPATION; Start 10/13/18 at 21:30 Acetaminophen (Tylenol Tab) 1,000 mg Q6H PRN PO MILD PAIN(1-3)OR ELEVATED TEMP Last administered on 10/17/18 21:24; Admin Dose 1,000 MG; Start 10/13/18 at 22:00 Albuterol/ Ipratropium (Duoneb) 3 ml Q4H RESP THERAPY HHN Last administered on 10/19/18 05:50; Admin Dose 3 ML; Start 10/14/18 at 01:00 Apixaban (Eliquis) 2.5 mg BID PO Last administered on 10/19/18 08:53; Admin Dose 2.5 MG; Start 10/13/18 at 22:00 Atorvastatin Calcium (Lipitor) 40 mg DAILY@21 PO Last administered on 10/18/18 20:44; Admin Dose 40 MG; Start 10/13/18 at 22:00 Famotidine (Pepcid) 20 mg DAILY PO Last administered on 10/19/18 08:53; Admin Dose 20 MG; Start 10/14/18 at 09:00 Haloperidol (Haldol) 2 mg Q4H PRN IM AGITATION Last administered on 10/18/18 19:41; Admin Dose 2 MG; Start 10/13/18 at 22:00 Polyethylene Glycol (Miralax) 17 gm DAILY PO Last administered on 10/19/18 08:54; Admin Dose 17 GM; Start 10/14/18 at 09:00 Multivitamins Therapeutic (Theragran) 1 tab DAILY PO Last administered on 10/19/18 08:53; Admin Dose 1 TAB; Start 10/14/18 at 13:30 Zinc Sulfate (Zinc Sulfate) 220 mg DAILY PO Last administered on 10/19/18 08:53; Admin Dose 220 MG; Start 10/14/18 at 13:30 Quetiapine Fumarate (Seroquel) 50 mg HS PO Last administered on 10/18/18 21:03; Admin Dose 50 MG; Start 10/14/18 at 21:00 Metoprolol Succinate (Toprol Xl) 25 mg BID PO Last administered on 10/19/18 08:54; Admin Dose 25 MG; Start 10/14/18 at 21:00 Ascorbic Acid (Vitamin C) 250 mg DAILY PO Last administered on 10/19/18 08:53; Admin Dose 250 MG; Start 10/16/18 at 09:00 Bumetanide (Bumex) 1 mg DAILY PO Last administered on 10/19/18 08:52; Admin Dose 1 MG; Start 10/16/18 at 09:00 Lidocaine (Lidoderm) 1 patch DAILY TD Last administered on 10/19/18 09:03; Admin Dose 1 PATCH; Start 10/18/18 at 09:00 Diclofenac Sodium (Voltaren 1% Gel) 4 gm QID TP Last administered on 10/19/18 12:20; Admin Dose 4 GM; Start 10/17/18 at 13:00 Quetiapine Fumarate (Seroquel) 25 mg QAM PO Last administered on 10/19/18 08:53; Admin Dose 25 MG; Start 10/18/18 at 09:30 REMIGIO REA MD Oct 19, 2018 13:19
[2018-10-19 14:19] VITALS: BP 141/65; PULSE 71; RESP 18
[2018-10-19 19:24] VITALS: BP 121/62; PULSE 79; RESP 18
--- NOTE | 2018-10-19 19:24 | CONS ---
DATE OF ADMISSION: 10/13/2018 DATE OF CONSULTATION: 10/19/2018 TYPE OF CONSULTATION: Psychological. REFERRING PHYSICIAN: Remigio Sparks MD CONSULTING PSYCHOLOGIST: Joel Keen, PhD REASON FOR CONSULTATION: This consultation was requested by Dr. Devon Sparks in order to evaluate the cognitive and emotional functioning of this patient related to his present medical condition. HISTORY OF PRESENT ILLNESS: The patient is an 83-year-old male. He has a history of multiple medical problems. The patient has a right above the knee amputation, throat cancer with open ostium, coronary artery disease with history of CABG and he was admitted to [facility] with increased shortness of breath. The patient was treated for respiratory failure and transferred to [facility]. The patient was then cleared and returned home. The patient then came back to the hospital with respiratory failure and decompensated heart failure. The patient was eventually cleared medically and then sent to the acute rehabilitation unit for acute multidisciplinary rehabilitation. FAMILY AND SOCIAL HISTORY: The patient lives at home and does want to return there after discharge. He has a roommate in a house in [place]. MEDICATIONS: The patient is presently on; 1. Seroquel 25 mg b.i.d. 2. Haldol 2 mg IM q.4 hours p.r.n. SUBSTANCE USE: The patient reports that he does not smoke. The patient reports that he does not use alcohol or other drugs. MENTAL STATUS EXAMINATION: APPEARANCE: The patient was seen in bed. Appears to be of average height and weight. The patient is right-handed. BEHAVIOR: The patient was cooperative during the consultation. The patient did attempt to answer all questions presented to him by the interviewer. MOOD AND AFFECT: The patient's mood appears to be frustrated. The patient does admit to frustration, but not exactly to anxiety and depression. The patient says he is frustrated about all his medical problems and does want to return to his previous level of functioning. PERCEPTION: The patient reports no hallucinations or delusions. The patient was alert to person, place, situation and time for the most part. MEMORY AND COGNITION: The patient's memory and cognition do show some impairment. He was not able to say the President of [facility]. He does not say who the governor of the state is or the mayor of the city. The patient was able to name the hospital. The patient was able to name the year, but he thought the month was November. The patient could only do 1 serial 7 subtraction from 100 and then made an error and could not make it correct and do any further. The patient was unable to spell "world" backwards. He spelled it "[id number]." The patient is exhibiting some problems with cognition at the present time and will be addressed with some cognitive rehabilitation. INTELLIGENCE: Intelligence appears to fall in the average range when he was functioning adequately. INSIGHT: Fair. JUDGMENT: Fair. THOUGHT CONTENT: The patient is concerned about his present medical condition. The patient is very upset about being in the hospital and wants to go home as soon as possible. The patient does have a level of confusion and is aware that he has some confusion, but is trying to do his best to clear his thinking. The patient is willing to try to work with cognitive rehabilitation. DISCUSSION: The patient can likely benefit from some cognitive/behavioral psychotherapy while he is on the unit. This psychotherapy would address his underlying level of frustration and all his medical problems as well as try to address his cognitive dysfunction. The patient will be involved in trying to record his memory in a memory book to help him increase his overall ability to reorient and function. 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 Devon Sparks, for referring this individual. Please do not hesitate to call if you have additional questions, Dictated By: JOEL KEEN PHD ALEXANDRA/GUS Conf#: [id number] DID#: [id number] CC: REMIGIO SPARKS MD; RICHARD CASTLE DO;*EndCC* MTDD
[2018-10-19] MEDS: SENNA TAB PO SCH (20:11)
[2018-10-19] MEDS: ATORVASTATIN 40 MG TAB PO SCH (20:13)
[2018-10-19] MEDS: ACETAMINOPHEN 500 MG TAB PO PRN (20:14)
[2018-10-20] MEDS: ALBUTEROL/IPRATROPIUM (NEB) 3 ML AMP HHN SCH ×3 (01:15→09:00)
[2018-10-20 02:00] VITALS: BP 128/64; PULSE 75; RESP 18
[2018-10-20 07:30] VITALS: BP 135/62; PULSE 71; RESP 20
--- NOTE | 2018-10-20 08:38 | CONS ---
Consult Date/Type/Reason Admit Date/Time Oct 13, 2018 at 20:16 Initial Consult Date Type of Consultation: cv Date/Time of Note DATE: 10/20/18 TIME: 08:38 Subjective Cardiology follow-up progress note Subjective: Case discussed with staff. Patient denies any cp or sob to me and is less hypoxemic less cough Objective: General: thin. in no acute distress HEENT: NC/AT. pupils are equal. round. NECK: Status post previous trach. no stridor. CV: RRR. systolic murmur; no gallop or rubs. PULM:+ mild rhonchi. GI: SOFT, NT, ND, no rebound or guarding Extremity: mild left LE edema. Status post right AKA neuro: awake and alert. Oriented to person and place Psych: Calm now rectal: deferred : normal Objective Vitals Vital Signs Date Temp Pulse Resp B/P (MAP) Pulse Ox O2 O2 Flow FiO2 Time Delivery Rate 10/20/18 75 20 95 21 05:29 10/20/18 97.8 128/64 Room Air 02:00 (85) 10/19/18 2.0 21:22 Intake and Output 10/19/18 10/19/18 10/20/18 1414:59 22:59 06:59 IntakeIntake Total 2020 ml 750 ml OutputOutput Total 500 ml BalanceBalance 1520 ml 750 ml Results/Medications Result Diagram: 10/17/18 0649 10/19/18 0624 Home Meds Active Scripts Ibuprofen* (Motrin*) 400 Mg Tab, 400 MG PO Q8, #30 TAB Prov:SAFIA LUGO MD 12/12/17 Hydrocodone/Acetaminophen ([place] 5-325 Tablet) 1 Each Tablet, 1 TAB PO Q6H PRN for PAIN, #20 TAB Prov:SAFIA LUGO MD 12/12/17 Reported Medications Aspirin (Low Dose Aspirin) 81 Mg Tablet.dr, 81 MG PO DAILY, #30 TAB 12/01/16 Metoprolol Succinate* (Toprol XL*) 50 Mg Tab.er.24h, 50 MG PO DAILY, TAB 05/13/15 Losartan Potassium* (Losartan Potassium*) 50 Mg Tablet, 50 MG PO DAILY, TAB 05/13/15 Atorvastatin* (Atorvastatin*) 40 Mg Tablet, 40 MG PO HS, TAB 05/13/15 Bumetanide* (Bumex*) 2 Mg Tab, 2 MG PO OD 11/15/12 Medications Current Medications Docusate Sodium (Colace) 100 mg BID PO Last administered on 10/19/18 20:13; Admin Dose 100 MG; Start 10/14/18 at 09:00 Senna (Senokot) 1 tab HS PO Last administered on 10/19/18 20:11; Admin Dose 1 TAB; Start 10/14/18 at 21:00 Magnesium Hydroxide (Milk Of Mag) 30 ml BID PRN PO CONSTIPATION; Start 10/13/18 at 21:30 Lactulose (Enulose) 20 gm DAILY PRN PO CONSTIPATION; Start 10/13/18 at 21:30 Bisacodyl (Dulcolax Supp) 10 mg DAILY PRN [place] CONSTIPATION; Start 10/13/18 at 21:30 Acetaminophen (Tylenol Tab) 1,000 mg Q6H PRN PO MILD PAIN(1-3)OR ELEVATED TEMP Last administered on 10/19/18 20:14; Admin Dose 1,000 MG; Start 10/13/18 at 22:00 Albuterol/ Ipratropium (Duoneb) 3 ml Q4H RESP THERAPY HHN Last administered on 10/20/18 05:29; Admin Dose 3 ML; Start 10/14/18 at 01:00 Apixaban (Eliquis) 2.5 mg BID PO Last administered on 10/19/18 20:13; Admin Dose 2.5 MG; Start 10/13/18 at 22:00 Atorvastatin Calcium (Lipitor) 40 mg DAILY@21 PO Last administered on 10/19/18 20:13; Admin Dose 40 MG; Start 10/13/18 at 22:00 Famotidine (Pepcid) 20 mg DAILY PO Last administered on 10/19/18 08:53; Admin Dose 20 MG; Start 10/14/18 at 09:00 Haloperidol (Haldol) 2 mg Q4H PRN IM AGITATION Last administered on 10/18/18 19:41; Admin Dose 2 MG; Start 10/13/18 at 22:00 Polyethylene Glycol (Miralax) 17 gm DAILY PO Last administered on 10/19/18 08:54; Admin Dose 17 GM; Start 10/14/18 at 09:00 Multivitamins Therapeutic (Theragran) 1 tab DAILY PO Last administered on 10/19/18 08:53; Admin Dose 1 TAB; Start 10/14/18 at 13:30 Zinc Sulfate (Zinc Sulfate) 220 mg DAILY PO Last administered on 10/19/18 08:53; Admin Dose 220 MG; Start 10/14/18 at 13:30 Quetiapine Fumarate (Seroquel) 50 mg HS PO Last administered on 10/19/18 20:13; Admin Dose 50 MG; Start 10/14/18 at 21:00 Metoprolol Succinate (Toprol Xl) 25 mg BID PO Last administered on 10/19/18 20:14; Admin Dose 25 MG; Start 10/14/18 at 21:00 Ascorbic Acid (Vitamin C) 250 mg DAILY PO Last administered on 10/19/18 08:53; Admin Dose 250 MG; Start 10/16/18 at 09:00 Bumetanide (Bumex) 1 mg DAILY PO Last administered on 10/19/18 08:52; Admin Dose 1 MG; Start 10/16/18 at 09:00 Lidocaine (Lidoderm) 1 patch DAILY TD Last administered on 10/19/18 09:03; Admin Dose 1 PATCH; Start 10/18/18 at 09:00 Diclofenac Sodium (Voltaren 1% Gel) 4 gm QID TP Last administered on 10/19/18 20:11; Admin Dose 4 GM; Start 10/17/18 at 13:00 Quetiapine Fumarate (Seroquel) 25 mg QAM PO Last administered on 10/19/18 08:53; Admin Dose 25 MG; Start 10/18/18 at 09:30 Assessment/Plan Hospital Course (Demo Recall) hypoxic hypercapnic respiratory failure Congestive heart failure 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 ON BUMEX NOW Continue respiratory care oxygen supplement. O2 as needed cont eliquis Not on TAYLOR inhibitor due to his renal failure. We will resume his ARB once okay from renal standpoint cont toprol 25 bid CONT rehab as tolerated Thank. you for his referral we will continue to monitor with you. SHARONDA BRICENO MD [facility] SHARONDA BRICENO MD Oct 20, 2018 08:38
--- NOTE | 2018-10-20 08:59 | PN ---
DATE: 10/20/2018 SUBJECTIVE: The patient is stable, no events overnight. OBJECTIVE: VITAL SIGNS: Blood pressure is 141/65, pulse 86, respirations 18, temperature 98.2. HEENT: Head is normocephalic. NECK: Supple. HEART: Regular rate. LUNGS: Show diminished breath sounds at the base. ABDOMEN: Soft, nontender to palpation without rebound or guarding. EXTREMITIES: The patient has right below knee amputation. Left extremity is negative for clubbing, cyanosis. Trace edema. DERMATOLOGIC: No rashes. MUSCULOSKELETAL: No joint effusion. NEUROLOGIC: No change in exam. MEDICATIONS: The patient's medications have been reviewed. LABORATORY DATA: Reviewed. ASSESSMENT AND PLAN: 1. Acute hypoxemic respiratory failure secondary to congestive heart failure. The patient is clinic ally improving. Continue medical management. 2. Acute on chronic heart failure. Continue current treatment plan. 3. Nonoliguric acute kidney injury on top of chronic kidney disease. Etiology is secondary to hemod ynamics. Renal function is improved. Continue to monitor. 4. Mineral bone disorder, monitor calcium and phosphorus levels. 5. Encephalopathy, etiology is toxic metabolic, improving. 6. Sepsis secondary to tracheobronchitis, improved. The patient is currently off antibiotics. 7. Anxiety disorder. Continue Seroquel. 8. History of coronary artery disease, status post coronary artery bypass graft. 9. Critical care myopathy. Continue physical therapy. 10. Arrhythmia, status post ICD placement. 11. Hypertension. Continue current blood pressure regimen. 12. Dyslipidemia, statin therapy. 13. History of throat cancer with residual ostium. 14. Gastrointestinal and deep vein thrombosis prophylaxis. Dictated By: RICHARD CASTLE DO NR/NTS Conf#: [id number] DID#: [id number] CC: REMIGIO REA MD; RICHARD CASTLE DO;*EndCC*
[2018-10-20] MEDS: POLYETHYLENE GLYCOL 17 GM PACKET PO SCH (09:28)
[2018-10-20] MEDS: LIDOCAINE 5% PATCH TD SCH (09:29)
[2018-10-20] MEDS: DOCUSATE SODIUM 100 MG CAP PO SCH (09:30)
[2018-10-20] MEDS: QUETIAPINE 25 MG TAB PO SCH (09:30)
[2018-10-20] MEDS: ZINC SULFATE 220 MG CAP PO SCH (09:30)
[2018-10-20] MEDS: BUMETANIDE 1 MG TAB PO SCH (09:30)
[2018-10-20] MEDS: FAMOTIDINE 20 MG TAB PO SCH (09:30)
[2018-10-20] MEDS: METOPROLOL (XL) 25 MG TAB PO SCH (09:30)
[2018-10-20] MEDS: ASCORBIC ACID 250 MG TAB PO SCH (09:30)
[2018-10-20] MEDS: APIXABAN 5 MG TABLET PO SCH (09:30)
[2018-10-20] MEDS: DICLOFENAC SODIUM 1% GEL 100 GM TUBE TP SCH (09:31)
[2018-10-20] MEDS: MULTIVITAMINS THERAPEUTIC TAB PO SCH (09:31)
--- NOTE | 2018-10-21 09:46 | DS ---
Date/Time of Note Date/Time of Note DATE: 10/21/18 TIME: 09:43 Discharge Summary Admission/Discharge Info Admit Date/Time Oct 13, 2018 at 20:16 Discharge Date/Time Oct 20, 2018 at 11:10 Discharge Diagnosis 1. Critical illness myopathy, improving activity tolerance 2. Status post respiratory failure with trach in a history of patient with throat cancer. 3. Status post sepsis. 4. chronic kidney injury. 5. Hypertension. 6. Hyperlipidemia. 7. COPD. 8. PVD, History of right above the knee amputation. 9. History of coronary artery disease, CABG and ICD. 10. Impairments in self-care, mobility, cognition Patient Condition: Good Hospital Course The patient was admitted for comprehensive interdisciplinary rehabilitation and made gradual limited functional gains from a Max/Dependent level to a mod/max level for self care tasks and mobility. Patient was followed closely for medical issues and now is ready to discharge to a lower level of care. The DC meds are per the medication reconciliation sheet. The patient will follow up with PMD upon DC. Home Meds Active Scripts Ibuprofen* (Motrin*) 400 Mg Tab, 400 MG PO Q8, #30 TAB Prov:SAFIA LUGO MD 12/12/17 Hydrocodone/Acetaminophen ([place] 5-325 Tablet) 1 Each Tablet, 1 TAB PO Q6H PRN for PAIN, #20 TAB Prov:SAFIA LUGO MD 12/12/17 Reported Medications Aspirin (Low Dose Aspirin) 81 Mg Tablet.dr, 81 MG PO DAILY, #30 TAB 12/01/16 Metoprolol Succinate* (Toprol XL*) 50 Mg Tab.er.24h, 50 MG PO DAILY, TAB 05/13/15 Losartan Potassium* (Losartan Potassium*) 50 Mg Tablet, 50 MG PO DAILY, TAB 05/13/15 Atorvastatin* (Atorvastatin*) 40 Mg Tablet, 40 MG PO HS, TAB 05/13/15 Bumetanide* (Bumex*) 2 Mg Tab, 2 MG PO OD 11/15/12 Primary Care Provider REMIGIO Ramires MD Oct 21, 2018 09:46
== END 2018-10-20 11:10 | DRG 91 ==
LOC: VRC 20:16
PROVIDERS: ADMIT Physical Medicine & Rehabilitation; ATTEND Internal Medicine
DX: G72.81 Critical illness myopathy (principal); J96.01 Acute respiratory failure with hypoxia; I50.23 Acute on chronic systolic (congestive) heart failure; I13.0 Hypertensive heart and chronic kidney disease with heart failure and stage 1 through stage 4 chronic kidney disease, or unspecified chronic kidney disease; N17.9 Acute kidney failure, unspecified; G93.40 Encephalopathy, unspecified; J44.1 Chronic obstructive pulmonary disease with (acute) exacerbation; N18.9 Chronic kidney disease, unspecified; F41.9 Anxiety disorder, unspecified; I73.9 Peripheral vascular disease, unspecified; Z85.818 Personal history of malignant neoplasm of other sites of lip, oral cavity, and pharynx; I25.10 Atherosclerotic heart disease of native coronary artery without angina pectoris; Z95.1 Presence of aortocoronary bypass graft; E88.9 Metabolic disorder, unspecified; Z22.322 Carrier or suspected carrier of Methicillin resistant Staphylococcus aureus; Z95.0 Presence of cardiac pacemaker; Z74.09 Other reduced mobility; G31.84 Mild cognitive impairment of uncertain or unknown etiology
CPT/HCPCS: 80048; 80053; 81001; 83735; 84100; 85025; 87081; 87086; 92507; 92610; 94640; 94664; 97110; 97112; 97163; 97167; 97530; 97535; 97542; J7030